=== PATIENT | male | born 1955 | race Caucasian/White ===

== ENCOUNTER 2018-04-01 08:17 | Day surgery (SDC) | payer OTHER ==
[~2018-04-01 08:17] MED LIST: PROPOFOL 200 MG/20 ML VIAL As Ordered
[2018-04-01] MEDS ORDERED: NS 1,000 ML IV (09:00)
== END 2018-04-01 10:44 | disposition home or self-care (01) ==
LOC: M OPP 08:17
DX: Z12.11 Encounter for screening for malignant neoplasm of colon (principal); D12.2 Benign neoplasm of ascending colon; D12.0 Benign neoplasm of cecum; D12.1 Benign neoplasm of appendix; D12.3 Benign neoplasm of transverse colon; D12.5 Benign neoplasm of sigmoid colon; I10 Essential (primary) hypertension; E78.5 Hyperlipidemia, unspecified; M25.569 Pain in unspecified knee; M19.90 Unspecified osteoarthritis, unspecified site; F17.210 Nicotine dependence, cigarettes, uncomplicated; Z79.899 Other long term (current) drug therapy
CPT/HCPCS: 45385

== ENCOUNTER → 2019-03-23 | Outpatient (CLI) | payer OTHER ==
[~2019-03-23] MED LIST changes: +HYDR12.55 PO; +LISI-538 PO; -PROPOFOL 200 MG/20 ML VIAL As Ordered; +SIMV10TA2 PO
--- NOTE | 2019-03-23 14:41 | REP ---
WHOLE BODY RADIONUCLIDE BONE SCAN: HISTORY: Staging for newly diagnosed prostate cancer. TECHNIQUE: 21.8 mCi technetium 99m MDP is injected and standard whole body bone scan imaging was acquired. SCINTIGRAPHIC FINDINGS: Anterior and posterior whole body images show normal distribution of skeletal tracer with uptake in bilateral kidneys and in the urinary bladder. There is no evidence to suggest skeletal metastasis. Planar images show arthritic uptake in the midfoot on the left consistent with midfoot osteoarthritis. Study is otherwise unremarkable. IMPRESSION: Osteoarthritic uptake in the left mid foot. Otherwise, negative whole-body bone scan. No evidence to suggest skeletal metastatic disease. Electronically Signed by Josemanuel Schwarz MD 03/23/2019 06:12 P
== END ==
LOC: M RAD 09:21
PROVIDERS: ATTEND Specialist
DX: C61 Malignant neoplasm of prostate (principal)

== ENCOUNTER → 2019-04-19 | Outpatient (CLI) | payer OTHER ==
[~2019-04-19] MED LIST changes: +LEUP1INJ4 SC; -SIMV10TA2 PO; +SIMV10TA21 PO
--- NOTE | 2019-04-21 08:28 | RADONC ---
RADIATION ONCOLOGY CONSULTATION NOTE DATE OF SERVICE: 04/19/2019 CHART NUMBER: [id number] DIAGNOSIS: Prostate cancer. STAGE III C, T2c, N0, M0, PSA 4.82, Cahone score 9 (4-5), grade group 5. ECOG PERFORMANCE STATUS: 0 CONSULTATION NOTE: Mr. Arce is a very pleasant 63-year-old white male with the diagnosis of a stage III C, T2c, N0, M0, poorly differentiated Diana score 9 (4-5) adenocarcinoma of the prostate, grade group 5 with a PSA level of 4.82 who is presenting to us today status post biopsy and initiation of androgen deprivation therapy for discussion of possible definitive external beam radiation therapy with IMRT / IGRT. HISTORY OF PRESENT ILLNESS: The patient was in his usual state of health but was found to have an elevated PSA which reached a level of 4.82 on 12/17/2018. On 02/18/2019, the patient underwent prostatic needle biopsy and was found to have a poorly differentiated Cahone score 9 (4-5) adenocarcinoma of the prostate which was bilateral. There were multiple sites of perineural invasion identified. The patient was initiated on androgen deprivation therapy and is now presenting to me for discussion of definitive external beam radiation therapy with IMRT / IGRT. PAST MEDICAL HISTORY: The patient's past medical history is positive for hypercholesterolemia, hypertension and arthritis. He has had the removal of colon polyps. ALLERGIES: The patient has NO KNOWN DRUG ALLERGIES. SOCIAL HISTORY: The patient had smoked one and a half packs of cigarettes per day for his entire life until just this year. This is a total of 69 pack-years over 46 years. He drinks approximately five alcoholic beverages a day but only a few days a week. FAMILY HISTORY: The patient's family history is positive for a sister with lung cancer. REVIEW OF SYSTEMS: The patient's review of systems is positive for some urinary frequency but is otherwise noncontributory. He denies nausea, vomiting, fevers, chills, night sweats, diplopia, headaches, anxiety or depression, anorexia, weight loss, visual disturbances, chest pain, urinary or bowel difficulties, bone pain, or neurological problems. PHYSICAL EXAMINATION: The patient is a well-developed, well-nourished male in no acute distress. HEENT exam is normocephalic, atraumatic. Extraocular movements are intact. There is no palpable cervical, supraclavicular, infraclavicular, axillary, or inguinal lymphadenopathy present. Lungs are clear to auscultation and percussion. Heart has a regular rate and rhythm. Abdomen is benign with no hepatosplenomegaly, masses, or tenderness. Rectal examination reveals a normal anal sphincter tone. His prostate is smooth with no evidence of nodularity. Skeletal examination reveals no tenderness to pressure or percussion of the bony skeleton. Extremities reveal no clubbing, cyanosis, or edema. Neurologic exam is grossly intact, as is the remainder of the physical examination. MEDICAL NECESSITY: IMRT/IGRT is clinically indicated for the highly conformal dose planning required. The target volume is in close proximity to critical structures, such as the rectum, bladder, small bowel, and femoral heads. The volume of interest must be covered with narrow margins to adequately protect immediately adjacent structures. The plan requires interpretation of complex testing such as CT localization. As noted above, special planning (IMRT) and localizing (IGRT) is required and essential to maximally protect sensitive normal tissue structures which cannot be accomplished using conventional 3-dimensional planning. ASSESSMENT: I had a very lengthy discussion with Mr. Arce and his regarding his treatment options. I do believe the patient is a candidate for external beam radiation therapy with IMRT and I have so informed him. I have discussed with the patient in detail the potential benefits as well as possible acute and chronic sequelae of external beam radiation therapy. We discussed logistics of treatment planning, simulation and subsequent fractionated daily radiation treatments. In addition, I discussed with the patient alternative therapies such as surgery. He reports that he is scheduled to be seen by a surgeon in two weeks' time and does not wish to make up his mind on treatment until that consultation is undertaken. I discussed the pluses and minuses of each of the two modalities surgery and radiation. In addition, I discussed my concerns with his perineural invasion and high-grade tumor which will lead to increased likelihood of microscopic lymph node metastases. I explained to him that radiation would be covering a larger area including his lymph node drainage sites and that considering the aggressive nature of his treatment, radiation may be preferable. I did discuss the possibility of surgery as a definitive option which could be followed by radiation if the margins were positive. I also explained that that would be a lower dose of radiation. Overall the patient is presently being treated with androgen deprivation therapy and therefore has some reasonable amount of time to make a final decision. I do not think it unreasonable that he has a lengthy discussion with the surgeon and may even wish for another opinion. I have therefore, at the patient's request, not set up any appointments at this time. Once the patient sees the surgeon, he will contact us if he wishes to undergo radiation. I have given the patient my personal cell phone number as well as our work number and instructed him to feel free and contact us at anytime. Should he contact his urologist, Dr. Mendez and expressed the desire to be treated, Dr. Mendez can contact us as well. Once again, we are available to this patient to answer any questions or provide him with any information whatsoever. We are also available to initiate treatment planning. The patient has been made aware as well that he will need placement of fiducial markers as part of the planning process. That will need to be done prior to initiation of treatment planning. I did go into a lengthy discussion with regards to the placement of fiducial markers as well. Thank you once again for allowing us to participate in the care of this very pleasant gentleman. If I could be of any further assistance, please feel free to contact me anytime. As always, warm regards, Ryan Garnica cc: MD Cl Hernandez MD
== END ==
LOC: M ONCR 08:49
PROVIDERS: ATTEND Radiology Radiation Oncology
DX: C61 Malignant neoplasm of prostate (principal)

== ENCOUNTER → 2020-08-10 | Outpatient (REF) | payer OTHER ==
[2020-08-10 17:14] LABS: BASO # 0.1 10^3/uL (0.0-0.2); BASO % 0.7 % (0.0-1.0); EOS # 0.4 10^3/uL (0.0-0.5); EOS % 3.3 % (0.0-3.0); HEMATOCRIT 42.6 % (42.0-52.0); HEMOGLOBIN 13.9 g/dl (13.5-17.5); LYMPH # 2.5 10^3/uL (1.5-5.0); LYMPH % 22.6 % (24.0-44.0); MEAN CORPUSCULAR HEMOGLOBIN 29.7 pg (27.0-33.0); MEAN CORPUSCULAR HGB CONC 32.6 g/dl (32.0-36.5); MONO % 8.7 % (0.0-5.0); NEUTROPHILS # 7.1 10^3/uL (1.5-8.5); NEUTROPHILS % 64.2 % (36.0-66.0); PLATELET COUNT, AUTOMATED 378 10^3/uL (150-450); RED BLOOD COUNT 4.68 10^6/uL (4.30-6.10)
[2020-08-10 17:35] LABS: ALBUMIN 4.2 GM/DL (3.2-5.2); ALT/SGPT 47 U/L (12-78); BILIRUBIN,TOTAL 0.4 MG/DL (0.2-1.0); BLOOD UREA NITROGEN 18 MG/DL (7-18); CALCIUM LEVEL 9.2 MG/DL (8.8-10.2); CARBON DIOXIDE LEVEL 28 MEQ/L (21-32); CHLORIDE LEVEL 104 MEQ/L (98-107); CREATININE FOR GFR 1.13 MG/DL (0.70-1.30); GLOMERULAR FILTRATION RATE > 60.0 (>49); GLUCOSE, FASTING 89 MG/DL (70-100); POTASSIUM SERUM 4.3 MEQ/L (3.5-5.1); RHEUMATOID FACTOR QUANT < 10.0 IU/ML (<15.0); SODIUM LEVEL 140 MEQ/L (136-145); TOTAL PROTEIN 7.7 GM/DL (6.4-8.2); URIC ACID 6.8 MG/DL (3.5-7.2)
== END ==
LOC: M SFHCRHEU 13:47
PROVIDERS: ATTEND Internal Medicine
DX: M10.9 Gout, unspecified (principal)

== ENCOUNTER → 2020-09-24 | Outpatient (REF) | payer OTHER ==
[2020-09-24 14:18] LABS: ALBUMIN 3.9 GM/DL (3.2-5.2); ALT/SGPT 36 U/L (12-78); BILIRUBIN,TOTAL 0.3 MG/DL (0.2-1.0); BLOOD UREA NITROGEN 21 MG/DL (7-18); CALCIUM LEVEL 9.8 MG/DL (8.8-10.2); CARBON DIOXIDE LEVEL 32 MEQ/L (21-32); CHLORIDE LEVEL 103 MEQ/L (98-107); CREATININE FOR GFR 1.18 MG/DL (0.70-1.30); GLOMERULAR FILTRATION RATE > 60.0 (>49); GLUCOSE, FASTING 127 MG/DL (70-100); POTASSIUM SERUM 4.2 MEQ/L (3.5-5.1); SODIUM LEVEL 140 MEQ/L (136-145); TOTAL PROTEIN 7.1 GM/DL (6.4-8.2); URIC ACID 5.8 MG/DL (3.5-7.2)
== END ==
LOC: M SFHCRHEU 08:30
PROVIDERS: ATTEND Internal Medicine
DX: M1A.29X0 Drug-induced chronic gout, multiple sites, without tophus (tophi) (principal)

== ENCOUNTER → 2020-10-05 | Outpatient (CLI) | payer OTHER ==
[~2020-10-05] MED LIST changes: +ISOVUE-370 76% 100ML VIAL As Ordered ONE; -LISI-538 PO; +LISI20TA33 PO
--- NOTE | 2020-10-05 14:31 | REP ---
INDICATION: PROSTATE CA, RISING PSA. COMPARISON: Comparison whole body bone scan 23 March 2019.. TECHNIQUE/RADIOTRACER AND DOSE: 21.8 mCi of Technetium-99m MDP was injected and standard whole-body bone scanning is acquired. FINDINGS: There is a normal distribution of skeletal tracer with uptake in bilateral kidneys and in the urinary bladder. There is no evidence to suggest skeletal metastatic disease. There is fairly intense uptake in the left midfoot articulations as on the 2019 prior study consistent with midfoot arthropathy. IMPRESSION: There is no evidence to suggest skeletal metastatic disease. Findings unchanged from March 05, 2019. Arthropathy related uptake in the left midfoot is again seen.. <Electronically signed by Lc Schwarz > 10/05/20 [id number]
--- NOTE | 2020-10-05 15:13 | REP ---
INDICATION: PROSTATE CA, RISING PSA. COMPARISON: None. TECHNIQUE: Helical scanning is acquired and 3 mm axial images re-formatted. Coronal and sagittal MPR images are generated. The CT contrast enhancement dose is 100 mL of intravenous Isovue 370. FINDINGS: Preliminary digital national accounts sales radiographs are unremarkable. Bowel gas pattern is normal. The lung bases are free of infiltrate nodule or mass. No pleural effusion or upper abdominal ascites is seen. There is mild diffuse fatty infiltration of the liver. No focal liver mass lesion is seen. Spleen is normal in size homogeneous in texture. No abnormality is noted in the gallbladder or the pancreas. There is no evidence of upper abdominal or retroperitoneal lymphadenopathy. Small and large bowel loops are normal in the upper abdomen. Pelvic CT images show no pelvic mass or adenopathy. Prostate is surgically absent. Urinary bladder is intact. Bone window settings show no bony destructive lesion. Vascular calcification is seen in a normal caliber aorta. IMPRESSION: No evidence of mass or adenopathy. No bony destructive or blastic lesion is seen. Mild diffuse fatty infiltration of the liver. No acute abnormality. <Electronically signed by Lc Schwarz > 10/05/20 [id number]
== END ==
LOC: M RAD 10:23
PROVIDERS: ATTEND Urology
DX: C61 Malignant neoplasm of prostate (principal); R97.21 Rising PSA following treatment for malignant neoplasm of prostate; K76.0 Fatty (change of) liver, not elsewhere classified
CPT/HCPCS: 74177; 78306; A9503; Q9967

== ENCOUNTER → 2020-10-25 | Outpatient (CLI) | payer OTHER ==
[~2020-10-25] MED LIST changes: +BICA50TA9 PO; -ISOVUE-370 76% 100ML VIAL As Ordered ONE
--- NOTE | 2020-10-25 10:40 | RADONC ---
Radiation Oncology Hx/FUP Radiation Oncology Hx/FUP Date of Service: Oct 25, 2020 Pt Identifier Keo Arce is a 65 year old male seen for a followup visit today at the department of radiation oncology for a history of biochemical recurrent prostate cancer [id number] [place] 4+3=7 (biopsy was 4+5=9). He is s/p RALP with Dr. Keane on 05/31/19. He has had a non-zero PSA since surgery most recently risen to 0.51 in September 2020. He is seen today to discuss salvage RT. Diagnosis/Treatment History Oncologic History Followed by Dr. Mendez for elevated PSA Given 3 month lupron in anticipation of surgery or radiation as primary treatment on 04/06/19, no additional given. PRECIOUS+ right PSA history: 10/10/20 0.51 08/01/20 0.17 05/02/20 0.09 10/26/19 0.01 07/20/19 0.01 (first post-op) 12/17/18 4.82 03/26/18 3.82 02/18/19 TRUS biopsy Diana 4+5=9 05/05 cores+ overall 05/31/19 RALP (Rubi) [id number] [place] 4+3=7 (minor component of 5 noted) Recent Imagin10/05/20 CT pelvis Negative 10/05/20 Bone scan Negative IPSS 15 HUBERT 1 Interval History Here with his . Has complete ED. Main urinary bother is weak stream and 5x nocturia. He is unsatisfied with his urinary function. He has no incontinence to speak of. He has regular BMs. Recalls he had a hormone injection from Dr. Mendez prior to surgery but this was a one-time injection. Appetite good, weight stable. Mood overall down because of the recurrence. Current Therapy Pending Stage Prostate cancer [id number] Home 4+3=7 (minor component of 5) PSA 4.82 stage IIC Social History: 60 pack year former smoker quit 2019 Drinks 12 standard drinks per week Allergies / Meds Allergies: Coded Allergies: No Known Allergies (Verified , 02/27/03) Home Meds Active Scripts Bicalutamide (Bicalutamide) 50 Mg Tablet, 1 TAB PO DAILY for 30 Days, #30 TAB Prov:JACOB SCALES MD 10/25/20 Reported Medications Leuprolide Acetate (Leuprolide Acetate) 1 Mg/0.2 Ml Kit, SC Q3M 04/19/19 Hydrochlorothiazide (Hydrochlorothiazide) 12.5 Mg Tab, 12.5 MG PO DAILY 02/18/18 Lisinopril (Lisinopril) 20 Mg Tab, 20 MG PO DAILY 02/18/18 Simvastatin (Simvastatin) 10 Mg Tab, 10 MG PO QHS 02/18/18 Review of Systems Review of Systems Constitutional: Reports: Fatigue; Denies: Chills, Fever, Weight Loss Eyes: Denies: Pain HEENT: Denies: Head Aches Skin: Denies: Rash Pulmonary: Denies: Dyspnea, Cough Cardiovascular: Denies: Chest Pain, Palpitations Gastrointestinal: Denies: Nausea, Abdominal Pain, Hematochezia Genitourinary: Reports: Frequency; Denies: Dysuria, Incontinence Hematologic: Denies: Bruising Musculoskeletal: Denies: Neck pain, Back pain Neurological: Denies: Weakness, Numbness Psych: Denies: Mood Normal Physical Examination Vital Signs Ht 72" Wt 259 lbs BMI 35 T 97.9 P 67 RR 18 BP 123/74 O2 97% Pain 0 Fatigue 5 General Exam: Positive: Alert, Cooperative; Negative: No Acute Distress Eye Exam: Positive: PERRLA, EOMI ENT EXAM: Positive: Atraumatic Neck Exam: Positive: Supple Chest Exam: Positive: Clear to auscultation Heart Exam: Positive: Rate Normal Abdomen Exam: Positive: Soft Extremity Exam: Negative: Edema Skin Exam: Positive: Nl turgor and temperature Neuro Exam: Positive: Normal Gait, Normal Speech, Cranial Nerves 3-12 NL Psych Exam: Positive: Mental status NL Diagnostic and Laboratory Diagnostic Review Radiologic images, relevant labs and pathology reports were personally reviewed and discussed with Mr. Arce. Assessment and Plan Impression Assessment Mr. Arce is a 65 year old male with a history of biochemical recurrent prostate cancer [id number] Diana 4+3=7 (biopsy was 4+5=9). He is s/p RALP with Dr. Keane on 05/31/19. He has had a non-zero PSA since surgery most recently risen to 0.51 in September 2020. He is seen today to discuss salvage RT. We reviewed his pathology which was discordant from his biopsy which suggested he very high risk disease initially. I reviewed his PSA which has a rapid doubling time. His staging studies were unsurprisingly negative. He has some urinary bother persistent but no incontinence. He is thus appropriate to begin salvage therapy immediately. I recommend 68.4 Gy in 38 fractions to the prostate bed and a lower dose to the pelvic LN on the basis of the SPPORT trial which suggested a benefit for LN inclusion in patients with post-operative PSA >0.34. I also recommend 6 months of ADT which I will facilitate here. He has previously received a 3 month eligard injection with Dr. Mendez in 2019 in anticipation of primary therapy, but this was not continued as he selected surgery. Per the [facility] salvage nomogram he has a 31% chance of durable bPFS with RT alone and a 56% chance with RT+ADT. He agreed to RT+ADT We reviewed the side effects of treatment in detail including fatigue, irritative voiding symptoms, diarrhea, and late rectal bleeding from RT, as well as fatigue, hot flashes, weight gain and joint pain from ADT. He already has complete ED post RALP. I will give him a 30 day casodex prescription to start now and schedule his lupron and simulation in the coming weeks. Performance Status ECOG 1 Plan Salvage RT + 6 month ADT as discussed above Casodex 50 mg daily for 1 month Lupron injection in next 1-2 weeks Simulation in next 1-2 weeks Mr. Arce was encouraged to call with questions or concerns in the interim period. Billing Statement Total time of [46] minutes was spent preparing for the visit [5], obtaining HPI [5], examining the patient [1], reviewing diagnostic tests [6], discussing management options [20], coordinating care [4], and writing this note [5]. JACOB SCALES MD Oct 25, 2020 10:40
== END ==
LOC: M ONCR 08:50
PROVIDERS: ATTEND General Practice
DX: C61 Malignant neoplasm of prostate (principal); Z92.3 Personal history of irradiation

== ENCOUNTER 2020-11-09 10:21 | Outpatient (RCR) | payer OTHER ==
[~2020-11-09 10:21] MED LIST changes: -LEUPROLIDE 45MG SYRINGE KIT (LUPRON DEPOT) (FOR ONCOLOGY) IM ONE
--- NOTE | 2020-11-09 11:11 | RADENCPD ---
Date/Time of Encounter Date of Encounter: Nov 09, 2020 Time of Encounter: 11:09 Encounter Naun came in today for CT simulation for his salvage RT to the prostate bed (separately documented). He also agreed to receive a 6 month lupron injection. We reviewed the side effects of lupron in detail including hot flashes, low libido, weight gain and fatigue. Informed consent was obtained. A 45 mg injection of lupron was given. He will begin RT in 1-2 weeks time. JACOB SCALES MD Nov 09, 2020 11:10
== END 2020-11-21 ==
LOC: M ONCR 10:21
PROVIDERS: ATTEND General Practice
DX: C61 Malignant neoplasm of prostate (principal)

== ENCOUNTER → 2020-11-09 | Outpatient (CLI) | payer OTHER ==
[~2020-11-09] MED LIST changes: +LEUPROLIDE 45MG SYRINGE KIT (LUPRON DEPOT) (FOR ONCOLOGY) IM ONE
== END ==
LOC: M ONCR 11:14
PROVIDERS: ATTEND General Practice
DX: C61 Malignant neoplasm of prostate (principal)

== ENCOUNTER → 2020-12-21 | Outpatient (RCR) | payer OTHER | LOC: M ONCR 11-22 09:00 | PROVIDERS: ATTEND General Practice | DX: C61 Malignant neoplasm of prostate (principal) ==

== ENCOUNTER 2021-01-14 09:04 | Outpatient (RCR) | payer OTHER | END 2021-01-21 | LOC: M ONCR 09:04 | PROVIDERS: ATTEND General Practice | DX: C61 Malignant neoplasm of prostate (principal) ==

== ENCOUNTER → 2021-04-10 | Outpatient (CLI) | payer OTHER ==
--- NOTE | 2021-04-10 12:20 | RADONC ---
Radiation Oncology Hx/FUP Radiation Oncology Hx/FUP Date of Service: Apr 10, 2021 Pt Identifier Keo Arce is a 65 year old male seen for a followup visit today at the department of radiation oncology for a history of biochemical recurrent prostate cancer [id number] [place] 4+3=7 (biopsy was 4+5=9). He is s/p RALP with Dr. Keane on 05/31/19. He has had a non-zero PSA since surgery most recently risen to 0.51 in September 2020. He completed salvage RT 68.4 Gy in 38 fractions on 01/14/21. He had concomitant 6 month Lupron given 11/09/20. Diagnosis/Treatment History Oncologic History Followed by Dr. Mendez for elevated PSA Given 3 month lupron in anticipation of surgery or radiation as primary treatment on 04/06/19, no additional given. PRECIOUS+ right PSA history: 04/04/21 <0.01 (post-RT) 10/10/20 0.51 08/01/20 0.17 05/02/20 0.09 10/26/19 0.01 07/20/19 0.01 (first post-op) 12/17/18 4.82 03/26/18 3.82 02/18/19 TRUS biopsy [place] 4+5=9 05/05 cores+ overall 05/31/19 RALP (Rubi) [id number] [place] 4+3=7 (minor component of 5 noted) 10/05/20 CT pelvis Negative 10/05/20 Bone scan Negative Interval History Naun reports his energy levels have improved since completing RT. He has no residual urinary or bowel complaints. No BRBPR or diarrhea. He has good stream, no excess urinary frequency and his baseline stress incontinence which has not changed since prior to RT. Current Therapy Surveillance Stage Prostate cancer [id number] Diana 4+3=7 (minor component of 5) PSA 4.82 stage IIC Social History: 60 pack year former smoker quit 2019 Drinks 12 standard drinks per week Allergies / Meds Allergies: Coded Allergies: No Known Allergies (Verified , 02/27/03) Home Meds Active Scripts Bicalutamide (Bicalutamide) 50 Mg Tablet, 1 TAB PO DAILY for 30 Days, #30 TAB Prov:JACOB SCALES MD 10/25/20 Reported Medications Leuprolide Acetate (Leuprolide Acetate) 1 Mg/0.2 Ml Kit, SC Q3M 04/19/19 Hydrochlorothiazide (Hydrochlorothiazide) 12.5 Mg Tab, 12.5 MG PO DAILY 02/18/18 Lisinopril (Lisinopril) 20 Mg Tab, 20 MG PO DAILY 02/18/18 Simvastatin (Simvastatin) 10 Mg Tab, 10 MG PO QHS 02/18/18 Review of Systems Review of Systems Constitutional: Denies: Chills, Fever, Weight Loss Eyes: Denies: Pain HEENT: Denies: Head Aches Pulmonary: Denies: Dyspnea, Cough Cardiovascular: Denies: Chest Pain Gastrointestinal: Denies: Abdominal Pain, Hematochezia Genitourinary: Reports: Incontinence; Denies: Frequency, Hematuria Hematologic: Denies: Bruising Musculoskeletal: Denies: Neck pain, Shoulder pain, Back pain Neurological: Denies: Weakness, Numbness Psych: Reports: Mood Normal Physical Examination Vital Signs Wt 255 lbs T 96.3 P 71 RR 18 BP 116/71 O2 95% Pain 0 Fatigue 0 General Exam: Alert, Cooperative, No Acute Distress Eye Exam: PERRLA, EOMI ENT EXAM: Atraumatic Neck Exam: Supple Chest Exam: Clear to auscultation Heart Exam: Rate Normal Abdomen Exam: Soft; Negative: Tenderness Extremity Exam: Negative: Edema Skin Exam: Nl turgor and temperature Neuro Exam: Normal Gait, Normal Speech, Cranial Nerves 3-12 NL Psych Exam: Mental status NL Diagnostic and Laboratory Diagnostic Review Radiologic images, relevant labs and pathology reports were personally reviewed and discussed with Mr. Arce. Assessment and Plan Impression Assessment Mr. Arce is a 65 year old male with a history of biochemical recurrent prostate cancer [id number] [place] 4+3=7 (biopsy was 4+5=9). He is s/p RALP with Dr. Keane on 05/31/19. He has had a non-zero PSA since surgery most recently risen to 0.51 in September 2020. He completed salvage RT 68.4 Gy in 38 fractions on 01/14/21. He had concomitant 6 month Lupron given 11/09/20. He is doing well overall, no excess urinary or GI bother since RT. We discussed that his PSA is still appropriately suppressed, and that his testosterone stands to normalize in the coming months, the expectation is that PSA will remain undetectable. Given his significant smoking history he would be eligible for a screening CT chest per USPSTF guidelines. We can discuss this at next visit. Performance Status ECOG 0 Plan 6 months with PSA/Testosterone Consider screening CT chest at next visit given smoking history Mr. Arce was encouraged to call with questions or concerns in the interim period. Billing Statement Total time of [24] minutes was spent preparing for the visit [1], obtaining HPI [4], examining the patient [2], reviewing diagnostic tests [2], discussing management options [6], coordinating care [2], and writing this note [7]. JACOB SCALES MD Apr 10, 2021 12:19
== END ==
LOC: M ONCR 10:23
PROVIDERS: ATTEND General Practice
DX: C61 Malignant neoplasm of prostate (principal); Z79.899 Other long term (current) drug therapy; Z87.891 Personal history of nicotine dependence; Z92.3 Personal history of irradiation

== ENCOUNTER → 2021-07-08 | Outpatient (CLI) | payer OTHER ==
[~2021-07-08] MED LIST changes: +ALLO300T2 PO; +LOSA50TA88 PO; +SIMV20TA22 PO; +SPIR1TAB34 PO; +ZOLO100T PO
== END ==
LOC: M LABSMTC 10:02
PROVIDERS: ATTEND Anesthesiology
DX: Z01.812 Encounter for preprocedural laboratory examination (principal); Z20.822 Contact with and (suspected) exposure to COVID-19

== ENCOUNTER 2021-07-12 06:49 | Day surgery (SDC) | payer OTHER ==
[~2021-07-12] VITALS: Ht 182.9 cm; Wt 115.1 kg
[~2021-07-12 06:49] MED LIST changes: +NS 1,000 ML IV ONE
--- OUTSIDE RECORDS SUMMARY | 2021-07-12 06:53 | CCD ---
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 317474782392781 Problem Acute gout of left foot, unspecified cause M10.9 Active confirmed [id number] ALLERGIES No Known Allergies ENCOUNTERS from 1955 to 2021-05-31 Encounter Location Date Provider Diagnosis [facility] Rheumatology [address] [place] [address] [place] [address] May, Autumn Mendez IMMUNIZATIONS No Information SOCIAL HISTORY Tobacco Use: Social History Observation Description Date Details (start date - stop date) Former Smoker Sex Assigned At : Social History Observation Description Sex Assigned At Unknown Alcohol Screening: Question Answer Notes Did you have a drink containing alcohol in the past year? Ye s Points 1 Interpretation Negative How often did you have six or more drinks on one occas ion in the past year? Never (0 points) How many drinks did you have on a typica l day when you were drinking in the past year? 1 or 2 (0 points) How often did you have a drink containing alcohol in t he past year? Monthly or less (1 point) Tobacco Use: Question Answer Notes Are you a: former smoker How long has it been since you last smoked? 1-5 years REASON FOR REFERRAL No Information VITAL SIGNS No information MEDICATIONS Medication SIG (Take, Route, Frequency, Duration) Notes Start Da te End Date Status Losartan Potassium 50 MG 1 tablet Oral Once a day Active predniSONE 5 MG 1 tablet Orally Once a day f or 2 weeks then one pill every other day for 2 weeks then as directed if needed for flare for 30 day(s) 01/31/21: has not taken in a while Sep, Active Simvastatin 10 MG 1 tablet in the evening Oral Daily Active Hydrochlorothiazide 12.5 MG 1 tablet in the morning Oral Daily Active Sertraline HCl 100 MG 1 tablet Oral Once a day Active Colchicine 0.6 MG 1 tablet Oral Daily Not-Taking Allopurinol 300 MG 1 tablet Orally Once a day for 30 days Jul, Active Allopurinol 300 MG 1 tablet Orally Once a day for 30 day(s) Not-Taking Ibuprofen 600 MG 1 tablet with food or milk as needed Ora lly Three times a day Not-Taking Lisinopril 20 MG 1 tablet Oral Once a day Not-Taking predniSONE 10 MG 2 tablet Orally bid for 30 day(s) Jul, Not-Taking PROCEDURES No Information RESULTS No Results REASON FOR VISIT APPT R/S FYI MEDICAL (GENERAL) HISTORY Type Description Date Medical History Arthritis Medical History prostate cancer Medical History high blood pressure Medical History high cholesterol Surgical History prostatectomy 05/2019 Surgical History left foot surgery 20 years ago Goals Section No Information Health Concerns No Information MEDICAL EQUIPMENT No Information MENTAL STATUS No Information FUNCTIONAL STATUS No Information ASSESSMENTS No Information PLAN OF TREATMENT Next Appt Details Provider Name:Autumn Mendez, 08:30:00 AM, [address] [place] [address], , [place], [place], [facility], Insurance Providers Payer Name Payer Address Payer Phone Insured Name Patient Relati onship to Insured Coverage Start Date Coverage End Date [facility] (NON MEDICAID MANAGED CARE) CORPORATE CLAIMS DEPT [address] [facility] [id number] GIOVANNI ARCE self
--- OUTSIDE RECORDS SUMMARY | 2021-07-12 06:53 | CCD | Continuity of Care Document ---
Author Author Keo GILBERT MD Organization Unknown Address [address] [place] [id number] Phone [phone] Care Team Providers Care Dietary Services Director Name Role Phone Stephany Forrest MD AUTM [phone] Problems Active Problems Provider Date Dislocation Foot Tarsometatarsal (Joint) Open Onset: 06/14/1999 Pure hypercholesterolemia Perla Gilbert MD Onset: 05/26 Essential hypertension Perla Gilbert MD Onset: 020 Social History Type Date Description Comments Sex Unknown ETOH Use Occasionally consumes alcohol Tobacco Use Start: Unknown End: Unknown Patient is a former smoker Allergies and adverse reactions Description No Known Drug Allergies Medications Active Medications SIG Qnty Indications Ordering Provide r Date Ibuprofen 600mg Tablets 1 tab by mouth three times a day 60tabs M25.572 Perla Gilbert MD 020 Hydrochlorothiazide 12.5mg Tablets Unknown Lisinopril 20mg Tablets Unknown Simvastatin 10mg Tablets Unknown Immunizations Description No Information Available Vital Signs Date Vital Result Comment 06/22/2020 8:33am Body Temperature 97.1 F Height 72 inches 6'0" Weight 260.00 lb BMI (Body Mass Index) 35.3 kg/m2 Results Description No Information Available Procedures Description No Information Available Medical Devices Description No Information Available Encounters Description No Information Available Assessments Description No Information Available Plan of Treatment 07/05/2020 - Perla Gilbert MD* M25.572 Pain in left ankle and joints of left foot* Follow up:* in 6 weeks with [facility] for left foot recheck with repeat xrays of left foot only if there is pain please. * M25.475 Effusion, left foot Functional Status Description No Information Available Mental Status Description No Information Available Referrals Description No Information Available
--- OUTSIDE RECORDS SUMMARY | 2021-07-12 06:56 | CCD ---
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 Role Phone Lori Nix MD Unavailable Unavailable Ole, Lori Hammond MD Unavailable Unavailable Ole, Lori Hammond MD Unavailable Unavailable Ole, Lori Hammond MD Unavailable Unavailable Ole, Lori Hammond MD Unavailable Unavailable Ole, Lori Hammond MD Unavailable Unavailable Ole, Lori Hammond MD Unavailable Unavailable Ole, Lori Hammond MD Unavailable Unavailable Ole, Lori Hammond MD Unavailable Unavailable Ole, Lori Hammond MD Unavailable Unavailable Ole, Lori Hammond MD Unavailable Unavailable Ole, Lori Hammond MD Unavailable Unavailable Ole, Lori Hammond MD Unavailable Unavailable Ole, Lori Hammond MD Unavailable Unavailable Ole, Lori Hammond MD Unavailable Unavailable Ole, Lori Hammond MD Unavailable Unavailable Ole, Lori Hammond MD Unavailable Unavailable Ole, Lori Hammond MD Unavailable Unavailable Ole, Lori Hammond MD Unavailable Unavailable Ole, Lori Hammond MD Unavailable Unavailable Ole, Lori Hammond MD Unavailable Unavailable Ole, Lori Hammond MD Unavailable Unavailable Ole, Lori Hammond MD Unavailable Unavailable Ole, Lori Hammond MD Unavailable Unavailable Ole, Lori Hammond MD Unavailable Unavailable Ole, Lori Hammond MD Unavailable Unavailable Ole, Lori Hammond MD Unavailable Unavailable Ole, Lori Hammond MD Unavailable Unavailable Ole, Lori Hammond MD Unavailable Unavailable Ole, Lori Hammond MD Unavailable Unavailable Ole, Lori Hammond MD Unavailable Unavailable Loe, Lori Hammond MD Unavailable Unavailable Ole, Lori Hammond MD Unavailable Unavailable Ole, Lori Hammond MD Unavailable Unavailable Ole, Lori Hammond MD Unavailable Unavailable Ole, Lori Hammond MD Unavailable Unavailable Ole, Lori Hammond MD Unavailable Unavailable Ole, Lori Hammond MD Unavailable Unavailable Ole, Lori Hammond MD Unavailable Unavailable Ole, Lori Hammond MD Unavailable Unavailable Ole, Lori Hammond MD Unavailable Unavailable Ole, Lori Hammond MD Unavailable Unavailable Ole, Lori Hammond MD Unavailable Unavailable Ole, Lori Hammond MD Unavailable Unavailable Ole, Lori Hammond MD Unavailable Unavailable Ole, Lori Hammond MD Unavailable Unavailable Ole, Lori Hammond MD Unavailable Unavailable Ole, Lori Hammond MD Unavailable Unavailable Ole, Lori Hammond MD Unavailable Unavailable Ole, Lori Hammond MD Unavailable Unavailable Ole, Lori Hammond MD Unavailable Unavailable Ole, Lori Hammond MD Unavailable Unavailable Ole, Lori Hammond MD Unavailable Unavailable Ole, Lori Hammond MD Unavailable Unavailable Ole, Lori Hammond MD Unavailable Unavailable Ole, Lori Hammond MD Unavailable Unavailable Ole, Lori Hammond MD Unavailable Unavailable Ole, Lori Hammond MD Unavailable Unavailable Ole, Lori Hammond MD Unavailable Unavailable Ole, Lori Hammond MD Unavailable Unavailable Ole, Lori Hammond MD Unavailable Unavailable Ole, Lori Hammond MD Unavailable Unavailable Ole, Lori Hammond MD Unavailable Unavailable Ole, Lori Hammond MD Unavailable Unavailable Ole, Lori Hammond MD Unavailable Unavailable Ole, Lori Hammond MD Unavailable Unavailable Ole, Lori Hammond MD Unavailable Unavailable Ole, Lori Hammond MD Unavailable Unavailable Ole, Lori Hammond MD Unavailable Unavailable Ole, Lori Hammond MD Unavailable Unavailable Ole, Lori Hammond MD Unavailable Unavailable Ole, Lori Hammond MD Unavailable Unavailable Ole, Lori Hammond MD Unavailable Unavailable Ole, Lori Hammond MD Unavailable Unavailable Ole, Lori Hammond MD Unavailable Unavailable Ole, Lori Hammond MD Unavailable Unavailable Ole, Lori Hammond MD Unavailable Unavailable Homero Mcelroy MD Unavailable Unavailable Homero Mcelroy MD Unavailable Unavailable Homero Mcelroy MD Unavailable Unavailable Homero Mcelroy MD Unavailable Unavailable LilibethHomero MD Unavailable Unavailable LilibethHomero MD Unavailable Unavailable LilibethHomero MD Unavailable Unavailable Lilibeth, Homero FERRER Unavailable Unavailable Lilibeth, Homero FERRER Unavailable Unavailable Lilibeth, Homero FERRER Unavailable Unavailable Lilibeth, Homero FERRER Unavailable Unavailable Lilibeth, Homero FERRER Unavailable Unavailable Lilibeth, Homero FERRER Unavailable Unavailable LilibethHomero MD Unavailable Unavailable LilibethHomero MD Unavailable Unavailable LilibethHomero MD Unavailable Unavailable LilibethHomero MD Unavailable Unavailable LilibethHomero MD Unavailable Unavailable Lilibeth, Homero FERRER Unavailable Unavailable LilibethHomero MD Unavailable Unavailable LilibethHomero MD Unavailable Unavailable LilibethHomero MD Unavailable Unavailable LilibethHomero MD Unavailable Unavailable LilibethHomero MD Unavailable Unavailable LilibethHomero MD Unavailable Unavailable LilibethHomero MD Unavailable Unavailable LilibethHomero MD Unavailable Unavailable Lilibeth, Homero FERRER Unavailable Unavailable LilibethHomero MD Unavailable Unavailable LilibethHomero MD Unavailable Unavailable LilibethHomero MD Unavailable Unavailable LilibethHomero stewart MD Unavailable Unavailable LilibethHomero stewart MD Unavailable Unavailable LilibethHomero stewart MD Unavailable Unavailable LilibethHomero stewart MD Unavailable Unavailable LilibethHomero MD Unavailable Unavailable LilibethHomero MD Unavailable Unavailable LilibethHomero MD Unavailable Unavailable LilibethHomero MD Unavailable Unavailable LilibethHomero MD Unavailable Unavailable LilibethHomero MD Unavailable Unavailable LilibethHomero MD Unavailable Unavailable LilibethHomero MD Unavailable Unavailable LilibethHomero MD Unavailable Unavailable LilibethHomero MD Unavailable Unavailable LilibethHomero MD Unavailable Unavailable LilibethHomero MD Unavailable Unavailable LilibethHomero MD Unavailable Unavailable LilibethHomero stewart MD Unavailable Unavailable Homero Mcelroy MD Unavailable Unavailable LilibethHomero stewart MD Unavailable Unavailable LilibethHomero stewart MD Unavailable Unavailable LilibethHomero stewart MD Unavailable Unavailable LilibethHomero stewart MD Unavailable Unavailable LilibethHomero MD Unavailable Unavailable LilibethHomero MD Unavailable Unavailable JASON ABEBE Unavailable Unavailable Adonis Keane MD Unavailable Unavailable Adonis Keane MD Unavailable Unavailable Adonis Keane MD Unavailable Unavailable Adonis Keane MD Unavailable Unavailable Adonis Keane MD Unavailable Unavailable Adonis Keane MD Unavailable Unavailable Adonis Keane MD Unavailable Unavailable Adonis Keane MD Unavailable Unavailable Adonis Keane MD Unavailable Unavailable Adonis Keane MD Unavailable Unavailable Adonis Keane MD Unavailable Unavailable Adonis Keane MD Unavailable Unavailable Adonis Keane MD Unavailable Unavailable Adonis Keane MD Unavailable Unavailable Adonis Keane MD Unavailable Unavailable Adonis Keane MD Unavailable Unavailable Adonis Keane MD Unavailable Unavailable Adonis Keane MD Unavailable Unavailable Adonis Keane MD Unavailable Unavailable Adonis Keane MD Unavailable Unavailable Adonis Keane MD Unavailable Unavailable Adonis Keane MD Unavailable Unavailable Adonis Keane MD Unavailable Unavailable Adonis Keane MD Unavailable Unavailable Adonis Keane MD Unavailable Unavailable Adonis Keane MD Unavailable Unavailable Adonis Keane MD Unavailable Unavailable Adonis eKane MD Unavailable Unavailable Adonis Keane MD Unavailable Unavailable Adonis Keane MD Unavailable Unavailable Adonis Keane MD Unavailable Unavailable Adonis Keane MD Unavailable Unavailable Adonis Keane MD Unavailable Unavailable Adonis Keane MD Unavailable Unavailable Adonis Keane MD Unavailable Unavailable Adonis Keane MD Unavailable Unavailable Adonis Keane MD Unavailable Unavailable Adonis Keane MD Unavailable Unavailable Adonis Keane MD Unavailable Unavailable Adonis Keane MD Unavailable Unavailable Adonis Keane MD Unavailable Unavailable Adonis Keane MD Unavailable Unavailable Adonis Keane MD Unavailable Unavailable Adonis Keane MD Unavailable Unavailable Adonis Keane MD Unavailable Unavailable Adonis Keane MD Unavailable Unavailable Adonis Keane MD Unavailable Unavailable Adonis Keane MD Unavailable Unavailable Adonis Keane MD Unavailable Unavailable Adonis Keane MD Unavailable Unavailable Adonis Keane MD Unavailable Unavailable Adonis Keane MD Unavailable Unavailable Adonis Keane MD Unavailable Unavailable Adonis Keane MD Unavailable Unavailable Adonis Keane MD Unavailable Unavailable Adonis Keane MD Unavailable Unavailable Adonis Keane MD Unavailable Unavailable Ricky BENNETT MD Unavailable Unavailable Ricky BENNETT MD Unavailable Unavailable Ricky BENNETT MD Unavailable Unavailable Ricky BENNETT MD Unavailable Unavailable Ricky BENNETT MD Unavailable Unavailable Ricky BENNETT MD Unavailable Unavailable Ricky BENNETT MD Unavailable Unavailable Ricky BENNETT MD Unavailable Unavailable Ricky BENNETT MD Unavailable Unavailable JACOB SCALES MD Unavailable Unavailable JACOB SCALES MD Unavailable Unavailable JACOB SCALES MD Unavailable Unavailable JACOB SCALES MD Unavailable Unavailable JACOB SCALES MD Unavailable Unavailable JACOB SCALES MD Unavailable Unavailable JACOB SCALES MD Unavailable Unavailable JACOB SCALES MD Unavailable Unavailable JACOB SCALES MD Unavailable Unavailable JACOB SCALES MD Unavailable Unavailable JACOB SCALES MD Unavailable Unavailable JACOB SCALES MD Unavailable Unavailable JACOB SCALES MD Unavailable Unavailable JACOB SCALES MD Unavailable Unavailable JACOB SCALES MD Unavailable Unavailable JACOB SCALES MD Unavailable Unavailable Adonis Keane MD Unavailable Unavailable Adonis Keane MD Unavailable Unavailable Adonis Keane MD Unavailable Unavailable Adonis Keane MD Unavailable Unavailable Adonis Keane MD Unavailable Unavailable Adonis Keane MD Unavailable Unavailable Adonis Keane MD Unavailable Unavailable Adonis Keane MD Unavailable Unavailable Adonis Keane MD Unavailable Unavailable Adonis Keane MD Unavailable Unavailable Adonis Keane MD Unavailable Unavailable Adonis Keane MD Unavailable Unavailable Adonis Keane MD Unavailable Unavailable Adonis Keane MD Unavailable Unavailable Adonis Keane MD Unavailable Unavailable Adonis Keane MD Unavailable Unavailable Adonis Keane MD Unavailable Unavailable Adonis eKane MD Unavailable Unavailable Adonis Keane MD Unavailable Unavailable Adonis Keane MD Unavailable Unavailable Adonis Keane MD Unavailable Unavailable Adonis Keane MD Unavailable Unavailable Adonis Keane MD Unavailable Unavailable Adonis Keane MD Unavailable Unavailable Adonis Keane MD Unavailable Unavailable Adonis Keane MD Unavailable Unavailable Adonis Keane MD Unavailable Unavailable Adonis Keane MD Unavailable Unavailable Adonis Keane MD Unavailable Unavailable Adonis Keane MD Unavailable Unavailable Adonis Keane MD Unavailable Unavailable Adonis Keane MD Unavailable Unavailable Adonis Keane MD Unavailable Unavailable Adonis Keane MD Unavailable Unavailable Adonis Keane MD Unavailable Unavailable Adonis Keane MD Unavailable Unavailable Adonis Keane MD Unavailable Unavailable Adonis Keane MD Unavailable Unavailable Adonis Keane MD Unavailable Unavailable Adonis Keane MD Unavailable Unavailable Adonis Keane MD Unavailable Unavailable Adonis Keane MD Unavailable Unavailable Adonis Keane MD Unavailable Unavailable Adonis Keane MD Unavailable Unavailable Adonis Keane MD Unavailable Unavailable Adonis Keane MD Unavailable Unavailable Adonis Keane MD Unavailable Unavailable Adonis Keane MD Unavailable Unavailable Adonis Keane MD Unavailable Unavailable Adonis Keane MD Unavailable Unavailable Adonis Keane MD Unavailable Unavailable Adonis Keane MD Unavailable Unavailable Adonis Keane MD Unavailable Unavailable Adonis Keane MD Unavailable Unavailable Adonis Keane MD Unavailable Unavailable Adonis Keane MD Unavailable Unavailable Adonis Keane MD Unavailable Unavailable DAVID PAGAN MD Unavailable Unavailable DAVID PGAAN MD Unavailable Unavailable DAVID PAGAN MD Unavailable Unavailable DAVID PAGAN MD Unavailable Unavailable DAVID PAGAN MD Unavailable Unavailable DAVID PAGAN MD Unavailable Unavailable DAVID PAGAN MD Unavailable Unavailable DAVID PAGAN MD Unavailable Unavailable DAVID PAGAN MD Unavailable Unavailable DAVID PAGAN MD Unavailable Unavailable DAVID PAGAN MD Unavailable Unavailable DAVID PAGAN MD Unavailable Unavailable DAVID PAGAN MD Unavailable Unavailable DAVID PAGAN MD Unavailable Unavailable DAVID PAGAN MD Unavailable Unavailable DAVID PAGAN MD Unavailable Unavailable DAVID PAGAN MD Unavailable Unavailable DAVID PAGAN MD Unavailable Unavailable DAVID PAGAN MD Unavailable Unavailable PAGANDAVID WINTER MD Unavailable Unavailable PAGANDAVID WINTER MD Unavailable Unavailable PAGANDAVID WINTER MD Unavailable Unavailable PAGANDAVID WINTER MD Unavailable Unavailable DAVID PAGAN MD Unavailable Unavailable DAVID PAGAN MD Unavailable Unavailable PAGANDAVID MD Unavailable Unavailable PAGANDAVID MD Unavailable Unavailable DAVID PAGAN MD Unavailable Unavailable DAVID PAGAN MD Unavailable Unavailable DAVID PAGAN MD Unavailable Unavailable DAVID PAGAN MD Unavailable Unavailable Ole, Lori Hammond MD Unavailable Unavailable Ole, Lori Hammond MD Unavailable Unavailable Ole, Lori Hammond MD Unavailable Unavailable Ole, Lori Hammond MD Unavailable Unavailable Ole, Lori Hammond MD Unavailable Unavailable Ole, Lori Hammond MD Unavailable Unavailable Ole, Lori Hammond MD Unavailable Unavailable Ole, Lori Hammond MD Unavailable Unavailable Ole, Lori Hammond MD Unavailable Unavailable Ole, Lori Hammond MD Unavailable Unavailable Ole, Lori Hammond MD Unavailable Unavailable Ole, Lori Hammond MD Unavailable Unavailable Ole, Lori Hammond MD Unavailable Unavailable Ole, Lori Hammond MD Unavailable Unavailable Ole, Lori Hammond MD Unavailable Unavailable Ole, Lori Hammond MD Unavailable Unavailable Ole, Lori Hammond MD Unavailable Unavailable Ole, Lori Hammond MD Unavailable Unavailable Ole, Lori Hammond MD Unavailable Unavailable Ole, Lori Hammond MD Unavailable Unavailable Ole, Lori Hammond MD Unavailable Unavailable Ole, Lori Hammond MD Unavailable Unavailable Ole, Lori Hammond MD Unavailable Unavailable Ole, Lori Hammond MD Unavailable Unavailable Ole, Lori Hammond MD Unavailable Unavailable Ole, Lori Hammond MD Unavailable Unavailable Ole, Lori Hammond MD Unavailable Unavailable Ole, Lori Hammond MD Unavailable Unavailable Ole, Lori Hammond MD Unavailable Unavailable Ole, Lori Hammond MD Unavailable Unavailable Ole, Lori Hammond MD Unavailable Unavailable Ole, Lori Hammond MD Unavailable Unavailable Ole, Lori Hammond MD Unavailable Unavailable Ole, Lori Hammond MD Unavailable Unavailable Ole, Lori Hammond MD Unavailable Unavailable Ole, Lori Hammond MD Unavailable Unavailable Ole, Lori Hammond MD Unavailable Unavailable Ole, Lori Hammond MD Unavailable Unavailable Ole, Lori Hammond MD Unavailable Unavailable Ole, Lori Hammond MD Unavailable Unavailable Ole, Lori Hammond MD Unavailable Unavailable Ole, Lroi Hammond MD Unavailable Unavailable Ole, Lori Hammond MD Unavailable Unavailable Ole, Lori Hammond MD Unavailable Unavailable Ole, Lori Hammond MD Unavailable Unavailable Ole, Lori Hammond MD Unavailable Unavailable Ole, Lori Hammond MD Unavailable Unavailable Ole, Lori Hammond MD Unavailable Unavailable Ole, Lori Hammond MD Unavailable Unavailable Ole, Lori Hammond MD Unavailable Unavailable Ole, Lori Hammond MD Unavailable Unavailable Ole, Lori Hammond MD Unavailable Unavailable Ole, Lori Hammond MD Unavailable Unavailable Ole, Lori Hammond MD Unavailable Unavailable Ole, Lori Hammond MD Unavailable Unavailable Ole, Lori Hammond MD Unavailable Unavailable Ole, Lori Hammond MD Unavailable Unavailable Ole, Lori Hammond MD Unavailable Unavailable Ole, Lori Hammond MD Unavailable Unavailable Ole, Lori Hammond MD Unavailable Unavailable Ole, Lori Hammond MD Unavailable Unavailable Ole, Lori Hammond MD Unavailable Unavailable Ole, Lori Hammond MD Unavailable Unavailable Ole, Lori Hammond MD Unavailable Unavailable Ole, Lori Hammond MD Unavailable Unavailable Ole, Lori Hammond MD Unavailable Unavailable Ole, Lori Hammond MD Unavailable Unavailable Ole, Lori Hammond MD Unavailable Unavailable Ole, Lori Hammond MD Unavailable Unavailable Ole, Lori Hammond MD Unavailable Unavailable Ole, Lori Hammond MD Unavailable Unavailable Ole, Lori Hammond MD Unavailable Unavailable Ole, Lori Hammond MD Unavailable Unavailable Ole, Lori Hammond MD Unavailable Unavailable Ole, Lori Hammond MD Unavailable Unavailable Ole, Lori Hammond MD Unavailable Unavailable Ole, Lori Hammond MD Unavailable Unavailable DAVID PAGAN MD Unavailable Unavailable DAVID PAGAN MD Unavailable Unavailable DAVID PAGAN MD Unavailable Unavailable DAVID PAGAN MD Unavailable Unavailable DAVID PAGAN MD Unavailable Unavailable DAVID PAGAN MD Unavailable Unavailable DAVID PAGAN MD Unavailable Unavailable DAVID PAGAN MD Unavailable Unavailable DAVID PAGAN MD Unavailable Unavailable DAVID PAGAN MD Unavailable Unavailable DAVID PAGAN MD Unavailable Unavailable PAGAN, DAVID MD Unavailable Unavailable PAGAN, DAVID MD Unavailable Unavailable PAGAN, DAVID MD Unavailable Unavailable PAGAN, DAVID MD Unavailable Unavailable PAGAN, DAVID MD Unavailable Unavailable PAGAN, DAVID MD Unavailable Unavailable PAGAN, DAVID MD Unavailable Unavailable PAGAN, DAVID MD Unavailable Unavailable PAGAN, DAVID MD Unavailable Unavailable PAGAN, DAVID MD Unavailable Unavailable PAGAN, DAVID MD Unavailable Unavailable PAGAN, DAVID MD Unavailable Unavailable PAGAN, DAVID MD Unavailable Unavailable PAGAN, DAVID MD Unavailable Unavailable PAGAN, DAVID MD Unavailable Unavailable PAGAN, ADVID MD Unavailable Unavailable PAGAN, DAVID MD Unavailable Unavailable PAGAN, DAVID MD Unavailable Unavailable PAGAN, DAVID MD Unavailable Unavailable PAGAN, DAVID MD Unavailable Unavailable Re-disclosure Warning The records that you are about to access may contain information from federally-assisted alcohol or drug abuse programs. If such information is present, then the following federally mandated warning applies: This information has been disclosed to you from records protected by federal confidentiality rules (42 CFR part 2). The federal rules prohibit you from making any further disclosure of this information unless further disclosure is expressly permitted by the written consent of the person to whom it pertains or as otherwise permitted by 42 CFR part 2. A general authorization for the release of medical or other information is NOT sufficient for this purpose. The Federal rules restrict any use of the information to criminally investigate or prosecute any alcohol or drug abuse patient.The records that you are about to access may contain highly sensitive health information, the redisclosure of which is protected by Article 27-F of the [facility] Public Health law. If you continue you may have access to information: Regarding HIV / AIDS; Provided by facilities licensed or operated by the [facility] Office of Mental Health; or Provided by the [facility] Office for People With Developmental Disabilities. If such information is present, then the following [facility] mandated warning applies: This information has been disclosed to you from confidential records which are protected by state law. State law prohibits you from making any further disclosure of this information without the specific written consent of the person to whom it pertains, or as otherwise permitted by law. Any unauthorized further disclosure in violation of state law may result in a fine or residential sentence or both. A general authorization for the release of medical or other information is NOT sufficient authorization for further disc losure. Allergies and Adverse Reactions Type Description Substance Reaction Status Data Source(s ) No Known Drug Allergies No Known Drug Allergies [facility] Propensity to adverse reactions NO KNOWN ALLERGIES NO KNOWN ALLERGIES [facility] Family History Family Member Name Family Member Gender Family Member Status Date o f Status Description Data Source(s) Unknown Condition [facility] Unknown Condition [facility] Unknown Male Problem [facility] ([facility]) Unknown Unknown Problem [facility] ([facility], ) Mother; Question perforated bowel (unkno wn cause) Encounters Encounter Providers Location Date Indications Data Source(s ) Unknown [id number] [facility] [address] 05/31/2021 12:00:00 AM EDT eCW1 ([facility]) Outpatient Attender: JACOB SCALES MDConsultant: Ephraim suresh MD 04/04/2021 06:51:00 AM EDT - 04/04/2021 07:51:00 AM EDT [facility] <td ID="encounterTypeDescriptionID0">TOY UA PHYSICAL EXAM</td><td>Ephraim Nix MD</td><td>Family Medicine [facility]</td><td>01/08/2021</td><td>10:02AM</td><td>11/07/2020 11:59PM</td><td><content ID="encounterDiagnosisID0-0">Depression</content>, <content ID="encounterDiagnosisID0-1">Depression with Anxiety</content>, <content ID="encounterDiagnosisID0-2">Anemia Normochromic, Normocytic</content>, <content ID="encounterDiagnosisID0-3">Hypogonadism</content>, <content ID="encounterDiagnosisID0-4">Fatigue</content>, <content ID="encounterDiagnosisID0-5">Routine History and Physical</content>, <content ID="encounterDiagnosisID0-6">Routine History & Physical 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) Obesity Routine History & Physical Senior Citize n with Abnormal Findings Routine History and Physical Fatigue Hypogonadism Depression with Anxiety Depression Anemia Normochromic, Normocytic Hyperlipidemia Outpatient Attender: JASON ABEBEConsultant: Homero contreras MD 12/31/2020 06:57:00 AM EDT - 12/31/2020 07:57:00 AM EDT [facility] Outpatient Attender: Ephraim Nix MDConsultant: Homero jarrell MD 12/31/2020 06:55:00 AM EDT - 12/31/2020 07:55:00 AM EDT [facility] <td ID="encounterTypeDescriptionID1">RX UPDATE</td><td>Ephraim Nix MD</td><td></td><td>01/02/2021</td><td>11/07/2020 9:10AM</td><td>11/07/2020 11:59PM</td><td></td>Outpatient Attender: Ephraim Nix MD 0 11/07/2020 09:10:00 AM EDT - 11/07/2020 11:59:00 PM EDT [facility]) Outpatient<td ID="encounterTypeDescripti onID2">EXTENDED VISIT</td><td>Ephraim Nix MD</td><td>[facility]</td><td>11/07/2020</td><td>8:09AM</td><td>8:36AM</td><td><content ID="encounterDiagnosisID2-0">Prostate Cancer</content>, <content ID="encounterDiagnosisID2-1">Obesity</content>, <content ID="encounterDiagnosisID2-2">Depression with Anxiety</content>, <content ID="encounterDiagnosisID2-3">Arthralgia</content></td> Attender: Ephraim Nix MD [facility], 11/07/2020 08:09:00 AM EDT - 11/07/2020 08:36:00 AM EDT Depression with AnxietyObesityDepression with AnxietyObesityProstate CancerProstate CancerArthralgiaArthralgia [place] ([facility]) Depression with Anxiety Obesity Depression with Anxiety Obesity Prostate Cancer Prostate Cancer Arthralgia Arthralgia <td ID="encounterTypeDescriptionID3">STA NDARD OV</td><td>Ephraim Nix MD</td><td>[facility]</td><td>10/10/2020</td><td>8:21AM</td><td>9:36AM</td><td><content ID="encounterDiagnosisID3-0">Episodic Mood Disorders</content>, <content ID="encounterDiagnosisID3-1">Essential Hypertension Benign</content>, <content ID="encounterDiagnosisID3-2">Hyperlipidemia</content>, <content ID="encounterDiagnosisID3-3">Depression with Anxiety</content>, <content ID="encounterDiagnosisID3-4">Gout</content></td>Outpatient Attender: Ephraim Nix MD [facility], 10/10/2020 08:21:00 AM EST - 10/10/2020 09:36:00 AM EST GoutDepression with AnxietyEpisodic Mood DisordersGoutDepression with AnxietyEpisodic Mood DisordersGoutDepression with AnxietyEpisodic Mood DisordersHyperlipidemiaEssential Hypertension BenignHyperlipidemiaEssential Hypertension BenignHyperlipidemiaEssential Hypertension Benign [place] ([facility]) Gout Depression with Anxiety Episodic Mood Disorders Gout Depression with Anxiety Episodic Mood Disorders Gout Depression with Anxiety Episodic Mood Disorders Hyperlipidemia Essential Hypertension Benign Hyperlipidemia Essential Hypertension Benign Hyperlipidemia Essential Hypertension Benign Outpatient Attender: Román Keane MD [id number] 10/10/2020 12:00:00 AM EST [facility] Outpatient Attender: Román Keane MDConsultant: Homero contreras MD 09/26/2020 06:53:00 AM EST - 09/26/2020 07:53:00 AM EST [facility] Outpatient [address] [id number] 09/24/2020 12:00:00 AM EST [facility] ([facility]) Outpatient<td ID="encounterTypeDescripti onID4">STANDARD OV</td><td>Ephraim Nix MD</td><td>[facility]</td><td>08/31/2020</td><td>8:31AM</td><td>9:17AM</td><td><content ID="encounterDiagnosisID4-0">Prostate Cancer</content>, <content ID="encounterDiagnosisID4-1">Essential Hypertension Benign</content>, <content ID="encounterDiagnosisID4-2">Arthralgia - Left Foot</content>, <content ID="encounterDiagnosisID4-3">Gout Primary</content></td> Attender: Ephraim Nix MD [facility] 08/31/2020 08:31:00 AM EST - 08/31/2020 09:17:00 AM EST Gout PrimaryArthralgia - Left FootGout P rimaryArthralgia - Left FootGout PrimaryArthralgia - Left FootProstate CancerProstate CancerProstate CancerEssential Hypertension BenignEssential Hypertension BenignEssential Hypertension Benign [place] ([facility]) Gout Primary Arthralgia - Left Foot Gout Primary Arthralgia - Left Foot Gout Primary Arthralgia - Left Foot Prostate Cancer Prostate Cancer Prostate Cancer Essential Hypertension Benign Essential Hypertension Benign Essential Hypertension Benign Outpatient Attender: Ephraim Nix MDConsultant: Homero jarrell MD 08/28/2020 06:33:00 AM EST - 08/28/2020 07:33:00 AM EST [facility] Outpatient [address], [facility] [id number] 08/21/2020 12:00:00 AM EST eCW1 ([facility]) Outpatient Attender: Román Keane MD [id number] 08/01/2020 12:00:00 AM EST [facility] <td ID="encounterTypeDescriptionID5">STA NDARD OV</td><td>Ephraim Nix MD</td><td>[facility]</td><td>07/31/2020</td><td>8:07AM</td><td>8:49AM</td><td><content ID="encounterDiagnosisID5-0">Essential Hypertension Benign</content>, <content ID="encounterDiagnosisID5-1">Hyperlipidemia</content>, <content ID="encounterDiagnosisID5-2">Arthralgia</content></td>Outpatient Attender: Ephraim Nix MD [facility] 07/31/2020 08:07:00 AM EST - 07/31/2020 08:49:00 AM EST ArthralgiaArthralgiaArthralgiaArthralgiaArthralgiaHyperlipidemiaEssential Hypertension BenignHyperlipidemiaEssential Hypertension BenignHyperlipidemiaEssential Hypertension BenignHyperlipidemiaEssential Hypertension BenignHyperlipidemiaEssential Hypertension Benign [place] ([facility]) Arthralgia Arthralgia Arthralgia Arthralgia Arthralgia Hyperlipidemia Essential Hypertension Benign Hyperlipidemia Essential Hypertension Benign Hyperlipidemia Essential Hypertension Benign Hyperlipidemia Essential Hypertension Benign Hyperlipidemia Essential Hypertension Benign Outpatient Attender: DAVID PAGAN MD Physical Therapy 08:30:00 AM EST [facility] ([facility]) Outpatient Attender: Ephraim Nxi MDConsultant: Homero jarrell MD 07/04/2020 06:49:00 AM EST - 07/04/2020 07:49:00 AM EST [facility] Outpatient Attender: Román Keane MDConsultant: Homero contreras MD 07/04/2020 06:46:00 AM EST - 07/04/2020 07:46:00 AM EST [facility] <td ID="encounterTypeDescriptionID6">EXT ENDED VISIT</td><td>Ephraim Nix MD</td><td>[facility]</td><td>07/03/2020</td><td>8:48AM</td><td>9:29AM</td><td><content ID="encounterDiagnosisID6-0">Anemia Normochromic, Normocytic</content>, <content ID="encounterDiagnosisID6-1">Prostate Cancer</content>, <content ID="encounterDiagnosisID6-2">Hyperuricemia</content>, <content ID="encounterDiagnosisID6-3">Arthralgia</content></td>Outpatient Attender: Ephraim Nix MD [facility] 07/03/2020 08:48:00 AM EST - 07/03/2020 09:29:00 AM EST HyperuricemiaHyperuricemiaHyperuricemiaHyperuricemiaHyperuricemiaHyperuricemiaAn emia Normochromic, NormocyticAnemia Normochromic, NormocyticAnemia Normochromic, NormocyticAnemia Normochromic, NormocyticAnemia Normochromic, NormocyticAnemia Normochromic, NormocyticProstate CancerProstate CancerProstate CancerProstate CancerProstate CancerProstate CancerArthralgiaArthralgiaArthralgiaArthralgiaArthralgiaArthralgia [place] ([facility]) Hyperuricemia Hyperuricemia Hyperuricemia Hyperuricemia Hyperuricemia Hyperuricemia Anemia Normochromic, Normocytic Anemia Normochromic, Normocytic Anemia Normochromic, Normocytic Anemia Normochromic, Normocytic Anemia Normochromic, Normocytic Anemia Normochromic, Normocytic Prostate Cancer Prostate Cancer Prostate Cancer Prostate Cancer Prostate Cancer Prostate Cancer Arthralgia Arthralgia Arthralgia Arthralgia Arthralgia Arthralgia Outpatient Attender: DAVID PAGAN MD Physical Therapy 07:45:00 AM EST [facility] Attender: DAVID PAGAN MDConsultant: Homero Mcelroy MD 06/22/2020 11:06:00 AM EDT - 06/22/2020 12:06:00 PM EDT [facility] Outpatient Attender: DAVID PAGAN MD Physical Therapy 08:15:00 AM EDT [facility] ([facility] ) Emergency Attender: AMA BENNETT MDConsultant: Homero jarrell MD 05/27/2020 09:49:00 AM EDT - 05/27/2020 03:10:00 PM EDT [facility] Patient discharged. Outpatient 05/25/2020 12:09:00 PM EDT [facility] Emergency Attender: AMA BENNETT MDConsultant: Homero jarrell MD 05/25/2020 11:28:00 AM EDT - 05/25/2020 02:24:00 PM EDT [facility] Patient discharged. Immunizations Vaccine Date Status Description Data Source(s) COVID-19 Pfizer 11/21/2020 08:17:00 AM EDT completed <td ID="Yfafxjguhhypb-Agawxaurmid-WO8">COVID-19 Pfizer</td><td ID="ImmunizationDose- 1">2</td><td>11/21/2020</td><td ID="Lxfmgztpogsqw-CvmfdGucb-VV6"></td><td></td> <td ID="Sppwuraeifqpl-Zjflqv-MO9">Complete (Reported)</td><td>Patient</td><td ID="Hdtjginqhdiqh-Vrmkd-Jxdj-Comment-ID1"></td> [facility]) COVID-19 VACCINE Pfizer 11/21/2020 12:00:00 AM EDT completed [employer] Vaccine Series Complete: YESThis Data wa s Submitted to [facility] Via [employer]. COVID-19 Pfizer 10/31/2020 08:17:00 AM EST completed <td ID="Flrhwgyvznvza-Zkdukwzwtmz-GN7">COVID-19 Pfizer</td><td ID="ImmunizationDose- 0">1</td><td>10/31/2020</td><td ID="Kqzoylywplavn-KsxrzWwal-ME4"></td><td></td> <td ID="Tczffgdhpeqrl-Cdfjsx-LX1">Complete (Reported)</td><td>Patient</td><td ID="Xnmhrfxovpyog-Dakem-Eypc-Comment-ID0"></td> [facility]) COVID-19 VACCINE Pfizer 10/31/2020 12:00:00 AM EST completed [employer] Vaccine Series Complete: NOThis Data was Submitted to [facility] Via [employer]. 10/10/2020 09:12:00 AM EST completed <td ID="Xybefnqhelavl-Vbzhzojwlhq-HW3">SHING[employer]X</td><td ID="ImmunizationDose- 4">1</td><td>10/10/2020</td><td ID="Ugaqdznxqydwt-QzbslMvog-AL8"></td><td></td> <td ID="Dgzzxlxcxzbmd-Vdspce-DS6">Complete (Refused - Patient objection)</td><td>[facility] </td><td ID="Xmcqsrhuyxwen-Zjhgk-Vfay-Comment-ID4"></td> [place] ([facility]) pneumococcal polysaccharide PPV23 08/31/2020 09:08:00 AM EST com pleted <td ID="Irsmjeezcvute-Mknebeyizee-PY9">PCV (Pneumovax 23) ages 2+</td><td ID="ImmunizationDose-3">1</td><td>08/31/2020</td><td ID="Eovyyolwgzcuo-NktizRigo-II3"></td><td></td><td ID="Qelwumyplykml-Dojdbh-HH7">Complete (Refused - Patient objection)</td><td>[facility] </td><td ID="Jsxacgsgtfgun-Vstws-Nbfa-Comment-ID3"></td> [place] ([facility]) This CVX code allows reporting of a vacc ination when formulation is unknown (for example, when recording a Influenza vaccination when noted on a vaccination card) 07/31/2020 08:36:00 AM EST completed <td ID="Spdedkpprvddu-Zfreffobdyi-JF4">Influenza,NOS</td><td ID="ImmunizationDose- 2">1</td><td>07/31/2020</td><td ID="Knzlgxyqowcot-LyoohYber-TK9"></td><td></td> <td ID="Idjfuuethndcy-Hpryty-SA9">Complete (Refused - Patient objection)</td><td>[facility]</td><td ID="Aorcffdrfsmot-Zyxjd-Gdlr-Comment-ID2"></td> [place] ([facility]) Medications Medication Brand Name Start Date Product Form Dose Route Admi nistrative Instructions Pharmacy Instructions Status Indications Reaction Description Data Source(s) 300 mg 06/25/2021 12:00:00 AM EDT tablet 90 TAKE ONE TABLET BY MOUTH EVERY DAY TAKE ONE TABLET BY MOUTH EVERY DAY SOLD: 07/01/2021 [facility] 20 mg 06/25/2021 12:00:00 AM EDT tablet 90 TAKE ONE TABLET BY MOUTH EVERY DAY TAKE ONE TABLET BY MOUTH EVERY DAY SOLD: 07/01/2021 [facility] 50 mg 06/25/2021 12:00:00 AM EDT tablet 180 TAKE ONE TABLET BY MOUTH TWICE A DAY TAKE ONE TABLET BY MOUTH TWICE A DAY SOLD: 07/01/2021 [facility] 17 gram/dose 04/05/2021 12:00:00 AM EDT powder 510 USE DIRECTED BY DOCTOR FOR BOWEL PREP USE DIRECTED BY DOCTOR FOR BOWEL PREP SOLD: 04/11/2021 [facility] POLYETHYLENE GLYCOL 3350 142 MG/ML Oral Solution [Miralax] M iralax 04/04/2021 12:00:00 AM EDT active [facility] ([facility], ) Magnesium Hydroxide 80 MG/ML Oral Suspension Milk Of Magnesi a 04/04/2021 12:00:00 AM EDT ORAL active [facility] ([facility], ) Hydrochlorothiazide 25 MG / Spironolactone 25 MG Oral Tablet 25-25 mg SPIRONOLACT/HYDROCHLOROTHIAZID 04/01/2021 12:00:00 AM EDT tablet 90 TAKE ONE TABLET BY MOUTH ONCE DAILY TAKE ONE TABLET BY MOUTH ONCE DAILY SOLD: 04/04/2021 [facility] 20 mg 03/29/2021 12:00:00 AM EDT tablet 90 TAKE ONE TABLET BY MOUTH ONCE DAILY TAKE ONE TABLET BY MOUTH ONCE DAILY SOLD: 04/01/2021 [facility] 100 mg 03/29/2021 12:00:00 AM EDT tablet 90 TAKE ONE TABLET BY MOUTH ONCE DAILY TAKE ONE TABLET BY MOUTH ONCE DAILY SOLD: 04/01/2021 [facility] 2 mg 03/29/2021 12:00:00 AM EDT gum 110 CHEW 8 TO 12 PIECES OF GUM A DAY NEEDED FOR CRAVING CHEW 8 TO 12 PIECES OF GUM A DAY NEEDED FOR CRAVING SOLD: 04/01/2021 [facility] 50 mg 03/29/2021 12:00:00 AM EDT tablet 180 TAKE ONE TABLET BY MOUTH TWO TIMES A DAY TAKE ONE TABLET BY MOUTH TWO TIMES A DAY SOLD: 04/01/2021 [facility] 300 mg 03/29/2021 12:00:00 AM EDT tablet 90 TAKE ONE TABLET BY MOUTH ONCE DAILY TAKE ONE TABLET BY MOUTH ONCE DAILY SOLD: 04/01/2021 [facility] Hydrochlorothiazide 25 MG / Spironolactone 25 MG Oral Tablet 25-25 mg SPIRONOLACT/HYDROCHLOROTHIAZID 03/08/2021 12:00:00 AM EDT tablet 30 TAKE ONE TABLET BY MOUTH EVERY DAY TAKE ONE TABLET BY MOUTH EVERY DAY SOLD: 03/11/2021 [facility] Hydrochlorothiazide 25 MG / Spironolactone 25 MG Oral Tablet 25-25 mg SPIRONOLACT/HYDROCHLOROTHIAZID 02/07/2021 12:00:00 AM EDT tablet 30 TAKE ONE TABLET BY MOUTH EVERY DAY TAKE ONE TABLET BY MOUTH EVERY DAY SOLD: 02/08/2021 [facility] 50 mg 02/06/2021 12:00:00 AM EDT tablet 60 TAKE ONE TABLET BY MOUTH TWICE A DAY TAKE ONE TABLET BY MOUTH TWICE A DAY SOLD: 03/11/2021 [facility] 50 mg 02/06/2021 12:00:00 AM EDT tablet 60 TAKE ONE TABLET BY MOUTH TWICE A DAY TAKE ONE TABLET BY MOUTH TWICE A DAY SOLD: 02/07/2021 [facility] 20 mg 01/10/2021 12:00:00 AM EDT tablet 30 TAKE ONE TABLET BY MOUTH EVERY DAY TAKE ONE TABLET BY MOUTH EVERY DAY SOLD: 03/11/2021 [facility] 20 mg 01/10/2021 12:00:00 AM EDT tablet 30 TAKE ONE TABLET BY MOUTH EVERY DAY TAKE ONE TABLET BY MOUTH EVERY DAY SOLD: 02/07/2021 [facility] 20 mg 01/10/2021 12:00:00 AM EDT tablet 30 TAKE ONE TABLET BY MOUTH EVERY DAY TAKE ONE TABLET BY MOUTH EVERY DAY SOLD: 01/11/2021 [facility] Sertraline 100 MG Oral Tablet Sertraline HCl 100 MG Or al Tablet Sertraline HCl 100 MG Oral Tablet 01/08/2021 12:00:00 AM EDT 1 active sertraline 100 MG Oral Tablet [place] ([facility]) 100 mg 01/08/2021 12:00:00 AM EDT tablet 30 TAKE 1 TABLET BY MOUTH EVERY DAY TAKE 1 TABLET BY MOUTH EVERY DAY SOLD: 01/10/2021 [facility] Allopurinol 300 MG Oral Tablet Allopurinol 300 MG Oral Table t 01/08/2021 12:00:00 AM EDT 1 active allopuri nol 300 MG Oral Tablet [place] ([facility]) 12.5 mg 01/02/2021 12:00:00 AM EDT capsule 60 TAKE TWO CAPSULES BY MOUTH EVERY MORNING TAKE TWO CAPSULES BY MOUTH EVERY MORNING SOLD: 01/08/2021 [facility] Hydrochlorothiazide 12.5 MG Oral Tablet hydroCHLOROthi azide 12.5 MG Oral Tablet hydroCHLOROthiazide 12.5 MG Oral Tablet 01/02/2021 12:00:00 AM EDT active hydrochlorothiazide 12.5 MG Oral Tablet [place] ([facility]) 50 mg 12/10/2020 12:00:00 AM EDT tablet 60 TAKE ONE TABLET BY MOUTH TWICE A DAY TAKE ONE TABLET BY MOUTH TWICE A DAY SOLD: 12/10/2020 [facility] 50 mg 12/10/2020 12:00:00 AM EDT tablet 60 TAKE ONE TABLET BY MOUTH TWICE A DAY TAKE ONE TABLET BY MOUTH TWICE A DAY SOLD: 01/08/2021 [facility] 10 mg 12/06/2020 12:00:00 AM EDT tablet 30 TAKE ONE TABLET BY MOUTH EVERY DAY AT BEDTIME TAKE ONE TABLET BY MOUTH EVERY DAY AT BEDTIME SOLD: 01/08/2021 [facility] 10 mg 12/06/2020 12:00:00 AM EDT tablet 30 TAKE ONE TABLET BY MOUTH EVERY DAY AT BEDTIME TAKE ONE TABLET BY MOUTH EVERY DAY AT BEDTIME SOLD: 12/08/2020 [facility] Simvastatin 10 MG Oral Tablet Simvastatin 10 MG Oral Tablet 12/04/2020 12:00:00 AM EDT active simvastatin 10 MG Oral Tablet [place] ([facility]) Losartan Potassium 50 MG Oral Tablet Losartan Potassium 50 M G Oral Tablet 11/19/2020 12:00:00 AM EDT active losartan potassium 50 MG Oral Tablet [place] ([facility]) Sertraline 100 MG Oral Tablet Sertraline HCl 100 MG Or al Tablet Sertraline HCl 100 MG Oral Tablet 11/07/2020 12:00:00 AM EDT 1 aborted sertraline 100 MG Oral Tablet [place] ([facility]) 100 mg 11/07/2020 12:00:00 AM EDT tablet 30 TAKE ONE TABLET BY MOUTH EVERY DAY TAKE ONE TABLET BY MOUTH EVERY DAY SOLD: 11/09/2020 [facility] 100 mg 11/07/2020 12:00:00 AM EDT tablet 30 TAKE ONE TABLET BY MOUTH EVERY DAY TAKE ONE TABLET BY MOUTH EVERY DAY SOLD: 12/10/2020 [facility] 50 mg 10/25/2020 12:00:00 AM EST tablet 30 TAKE ONE TABLET BY MOUTH EVERY DAY TAKE ONE TABLET BY MOUTH EVERY DAY SOLD: 10/26/2020 [facility] 50 mg 10/10/2020 12:00:00 AM EST tablet 30 TAKE ONE TABLET BY MOUTH EVERY DAY TAKE ONE TABLET BY MOUTH EVERY DAY SOLD: 10/12/2020 [facility] Sertraline 50 MG Oral Tablet Sertraline HCl 50 MG Oral Tablet Sertraline HCl 50 MG Oral Tablet 10/10/2020 12:00:00 AM EST 1 abo rted sertraline 50 MG Oral Tablet [place] ([facility]) 300 mg 10/08/2020 12:00:00 AM EST tablet 30 TAKE ONE TABLET BY MOUTH EVERY DAY TAKE ONE TABLET BY MOUTH EVERY DAY SOLD: 10/12/2020 [facility] 300 mg 10/08/2020 12:00:00 AM EST tablet 30 TAKE ONE TABLET BY MOUTH EVERY DAY TAKE ONE TABLET BY MOUTH EVERY DAY SOLD: 02/07/2021 [facility] 300 mg 10/08/2020 12:00:00 AM EST tablet 30 TAKE ONE TABLET BY MOUTH EVERY DAY TAKE ONE TABLET BY MOUTH EVERY DAY SOLD: 03/11/2021 [facility] 300 mg 10/08/2020 12:00:00 AM EST tablet 30 TAKE ONE TABLET BY MOUTH EVERY DAY TAKE ONE TABLET BY MOUTH EVERY DAY SOLD: 11/09/2020 [facility] 300 mg 10/08/2020 12:00:00 AM EST tablet 30 TAKE ONE TABLET BY MOUTH EVERY DAY TAKE ONE TABLET BY MOUTH EVERY DAY SOLD: 12/08/2020 [facility] 300 mg 10/08/2020 12:00:00 AM EST tablet 30 TAKE ONE TABLET BY MOUTH EVERY DAY TAKE ONE TABLET BY MOUTH EVERY DAY SOLD: 01/08/2021 [facility] Hydrochlorothiazide 12.5 MG Oral Tablet HYDROCHLOROTHIAZIDE 09/29/2020 12:00:00 AM EST tablet 60 TAKE TWO TABLETS BY MOUTH EV JOHN MORNING TAKE TWO TABLETS BY MOUTH EVERY MORNING SOLD: 12/10/2020 [facility] Hydrochlorothiazide 12.5 MG Oral Tablet HYDROCHLOROTHIAZIDE 09/29/2020 12:00:00 AM EST tablet 14 TAKE TWO TABLETS BY MOUTH EV JOHN MORNING TAKE TWO TABLETS BY MOUTH EVERY MORNING SOLD: 11/11/2020 [facility] Hydrochlorothiazide 12.5 MG Oral Tablet HYDROCHLOROTHIAZIDE 09/29/2020 12:00:00 AM EST tablet 42 TAKE TWO TABLETS BY MOUTH EV JOHN MORNING TAKE TWO TABLETS BY MOUTH EVERY MORNING SOLD: 11/18/2020 [facility] Hydrochlorothiazide 12.5 MG Oral Tablet HYDROCHLOROTHIAZIDE 09/29/2020 12:00:00 AM EST tablet 60 TAKE TWO TABLETS BY MOUTH EV JOHN MORNING TAKE TWO TABLETS BY MOUTH EVERY MORNING SOLD: 09/29/2020 [facility] Prednisone 5 MG Oral Tablet predniSONE 5 MG Oral Table t (DELTASONE) predniSONE 5 MG Oral Tablet (DELTASONE) 09/24/2020 12:00:00 AM EST active TAKE 1 TABLET BY MOUTH FOR 2 WEEKS THEN 1 TABLET EVERY OTHER DAY FOR 2 WEEKS THEN DIRECTED IF NEEDED FOR [facility] Prednisone 5 MG Oral Tablet PredniSONE 5 MG PredniSONE 5 MG 09/24/2020 12:00:00 AM EST 1.0 {tablet} active PredniSONE 5 MG eCW1 ([facility]) 5 mg 09/24/2020 12:00:00 AM EST tablet 30 TAKE 1 TABLET BY MOUTH FOR 2 WEEKS, THEN 1 TABLET EVERY OTHER DAY FOR 2 WEEKS, THEN DIRECTED IF NEEDED FOR FLARE TAKE 1 TABLET BY MOUTH FOR 2 WEEKS, THEN 1 TABLET EVERY OTHER DAY FOR 2 WEEKS, THEN DIRECTED IF NEEDED FOR FLARE SOLD: 09/27/2020 [facility] 5 mg 09/24/2020 12:00:00 AM EST tablet 30 TAKE 1 TABLET BY MOUTH FOR 2 WEEKS, THEN 1 TABLET EVERY OTHER DAY FOR 2 WEEKS, THEN DIRECTED IF NEEDED FOR FLARE TAKE 1 TABLET BY MOUTH FOR 2 WEEKS, THEN 1 TABLET EVERY OTHER DAY FOR 2 WEEKS, THEN DIRECTED IF NEEDED FOR FLARE SOLD: 10/26/2020 [facility] Prednisone 5 MG Oral Tablet predniSONE 5 MG predniSONE 5 MG 09/24/2020 12:00:00 AM EST 1.0 {tablet} active predniSONE 5 MG [facility] ([facility]) 50 mg 09/17/2020 12:00:00 AM EST tablet 60 TAKE ONE TABLET BY MOUTH TWICE A DAY TAKE ONE TABLET BY MOUTH TWICE A DAY SOLD: 09/17/2020 [facility] 50 mg 09/17/2020 12:00:00 AM EST tablet 60 TAKE ONE TABLET BY MOUTH TWICE A DAY TAKE ONE TABLET BY MOUTH TWICE A DAY SOLD: 11/09/2020 [facility] Hydrochlorothiazide 12.5 MG Oral Tablet hydroCHLOROthi azide 12.5 MG Oral Tablet hydroCHLOROthiazide 12.5 MG Oral Tablet 09/17/2020 12:00:00 AM EST aborted hydrochlorothiazide 12.5 MG Oral Tablet [place] ([facility]) 50 mg 09/17/2020 12:00:00 AM EST tablet 60 TAKE ONE TABLET BY MOUTH TWICE A DAY TAKE ONE TABLET BY MOUTH TWICE A DAY SOLD: 10/12/2020 [facility] 10 mg 09/16/2020 12:00:00 AM EST tablet 30 TAKE ONE TABLET BY MOUTH AT BEDTIME TAKE ONE TABLET BY MOUTH AT BEDTIME SOLD: 10/12/2020 [facility] 300 mg 09/16/2020 12:00:00 AM EST tablet 30 TAKE ONE TABLET BY MOUTH EVERY DAY TAKE ONE TABLET BY MOUTH EVERY DAY SOLD: 09/17/2020 [facility] 10 mg 09/16/2020 12:00:00 AM EST tablet 30 TAKE ONE TABLET BY MOUTH AT BEDTIME TAKE ONE TABLET BY MOUTH AT BEDTIME SOLD: 09/17/2020 [facility] 10 mg 09/16/2020 12:00:00 AM EST tablet 30 TAKE ONE TABLET BY MOUTH AT BEDTIME TAKE ONE TABLET BY MOUTH AT BEDTIME SOLD: 11/09/2020 [facility] Hydrochlorothiazide 12.5 MG Oral Tablet HYDROCHLOROTHIAZIDE 09/12/2020 12:00:00 AM EST tablet 16 TAKE ONE TABLET BY MOUTH DAX RY MORNING TAKE ONE TABLET BY MOUTH EVERY MORNING SOLD: 10/26/2020 [facility] Hydrochlorothiazide 12.5 MG Oral Tablet HYDROCHLOROTHIAZIDE 09/12/2020 12:00:00 AM EST tablet 30 TAKE ONE TABLET BY MOUTH DAX RY MORNING TAKE ONE TABLET BY MOUTH EVERY MORNING SOLD: 09/13/2020 [facility] Hydrochlorothiazide 12.5 MG Oral Tablet hydroCHLOROthi azide 12.5 MG Oral Tablet hydroCHLOROthiazide 12.5 MG Oral Tablet 08/31/2020 12:00:00 AM EST aborted hydrochlorothiazide 12.5 MG Oral Tablet [place] ([facility]) Allopurinol 300 MG Oral Tablet Allopurinol 300 MG Oral Table t 08/31/2020 12:00:00 AM EST 1 aborted allopur inol 300 MG Oral Tablet [place] ([facility]) Losartan Potassium 50 MG Oral Tablet Losartan Potassium 50 M G Oral Tablet 08/31/2020 12:00:00 AM EST aborted losartan potassium 50 MG Oral Tablet [place] ([facility]) Allopurinol 300 MG Oral Tablet Allopurinol 300 MG 08/21/2020 12:00: 00 AM EST 1.0 {tablet} active Allopurinol 300 MG eCW1 ([facility]) Allopurinol 300 MG Oral Tablet Allopurinol 300 MG 08/21/2020 12:00: 00 AM EST active Allopurinol 300 MG eCW1 ([facility]) Allopurinol 300 MG Oral Tablet Allopurinol 300 MG 08/21/2020 12:00: 00 AM EST 1.0 {tablet} active Allopurinol 300 MG eCW1 ([facility]) Prednisone 10 MG Oral Tablet PredniSONE 10 MG PredniSONE 10 MG 08/10/2020 12:00:00 AM EST 2.0 {tablet} active Pr edniSONE 10 MG eCW1 ([facility]) Prednisone 10 MG Oral Tablet PredniSONE 10 MG PredniSONE 10 MG 08/10/2020 12:00:00 AM EST 2.0 {tablet} suspended PredniSONE 10 MG eCW1 ([facility]) Prednisone 10 MG Oral Tablet predniSONE 10 MG predniSONE 10 MG 08/10/2020 12:00:00 AM EST 2.0 {tablet} suspended predniSONE 10 MG eCW1 ([facility]) 10 mg 08/10/2020 12:00:00 AM EST tablet 120 TAKE TWO TABLETS BY MOUTH TWICE A DAY TAKE TWO TABLETS BY MOUTH TWICE A DAY SOLD: 08/10/2020 [facility] Losartan Potassium 50 MG Oral Tablet Losartan Potassium 50 M G Oral Tablet 07/31/2020 12:00:00 AM EST aborted losartan potassium 50 MG Oral Tablet [place] ([facility]) Simvastatin 10 MG Oral Tablet Simvastatin 10 MG Oral Tablet 07/31/2020 12:00:00 AM EST aborted simvastatin 10 M G Oral Tablet [place] ([facility]) Hydrochlorothiazide 12.5 MG Oral Tablet hydroCHLOROthi azide 12.5 MG Oral Tablet hydroCHLOROthiazide 12.5 MG Oral Tablet 07/31/2020 12:00:00 AM EST aborted hydrochlorothiazide 12.5 MG Oral Tablet [place] ([facility]) 50 mg 07/31/2020 12:00:00 AM EST tablet 40 TAKE ONE TABLET BY MOUTH TWICE A DAY TAKE ONE TABLET BY MOUTH TWICE A DAY SOLD: 08/01/2020 [facility] Colchicine 0.6 MG Oral Tablet Colchicine 0.6 MG Oral Tablet 07/31/2020 12:00:00 AM EST aborted colchicine 0.6 M G Oral Tablet [place] ([facility]) Allopurinol 300 MG Oral Tablet Allopurinol 300 MG Oral Table t 07/31/2020 12:00:00 AM EST 1 aborted allopur inol 300 MG Oral Tablet [place] ([facility]) 50 mg 07/31/2020 12:00:00 AM EST tablet 60 TAKE ONE TABLET BY MOUTH TWICE A DAY TAKE ONE TABLET BY MOUTH TWICE A DAY SOLD: 08/21/2020 [facility] Losartan Potassium 50 MG Oral Tablet [place] Potassium 50 MG Oral Tablet ([facility]) Losartan Potassium 50 MG Oral Tablet (COZAAR) 07/31/20 12:00:00 AM EST active Two Times Daily [facility] 300 mg 07/03/2020 12:00:00 AM EST tablet 30 TAKE ONE TABLET BY MOUTH EVERY DAY TAKE ONE TABLET BY MOUTH EVERY DAY SOLD: 08/21/2020 [facility] Lisinopril 20 MG Oral Tablet Lisinopril 20 MG Oral Tablet 12:00:00 AM EST aborted lisinopril 20 MG Oral Tablet [facility]) Allopurinol 300 MG Oral Tablet Allopurinol 300 MG Oral Table t 07/03/2020 12:00:00 AM EST 1 aborted allopur inol 300 MG Oral Tablet [facility]) 0.6 mg 07/03/2020 12:00:00 AM EST tablet 30 TAKE ONE TABLET BY MOUTH TWICE A DAY TAKE ONE TABLET BY MOUTH TWICE A DAY SOLD: 07/20/2020 [facility] Colchicine 0.6 MG Oral Tablet Colchicine 0.6 MG Oral Tablet 07/03/2020 12:00:00 AM EST aborted colchicine 0.6 M G Oral Tablet [facility]) Colchicine 0.6 MG Oral Tablet Colchicine 0.6 MG Oral Tablet 07/03/2020 12:00:00 AM EST active colchicine 0.6 MG Oral Tablet [facility] Allopurinol 300 MG Oral Tablet Allopurinol 300 MG Oral Tablet (ZYLOPRIM) Allopurinol 300 MG Oral Tablet (ZYLOPRIM) 07/03/2020 12:00:00 AM EST 300 mg Oral active Take 300 mg by mouth daily [facility] 0.6 mg 07/03/2020 12:00:00 AM EST tablet 30 TAKE ONE TABLET BY MOUTH TWICE A DAY TAKE ONE TABLET BY MOUTH TWICE A DAY SOLD: 07/03/2020 [facility] 300 mg 07/03/2020 12:00:00 AM EST tablet 30 TAKE ONE TABLET BY MOUTH EVERY DAY TAKE ONE TABLET BY MOUTH EVERY DAY SOLD: 07/03/2020 [facility] 600 mg 06/22/2020 12:00:00 AM EDT tablet 60 TAKE ONE TABLET BY MOUTH THREE TIMES A DAY TAKE ONE TABLET BY MOUTH THREE TIMES A DAY SOLD: 07/20/2020 [facility] 600 mg 06/22/2020 12:00:00 AM EDT tablet 60 TAKE ONE TABLET BY MOUTH THREE TIMES A DAY TAKE ONE TABLET BY MOUTH THREE TIMES A DAY SOLD: 06/22/2020 [facility] Ibuprofen 600 MG Oral Tablet Ibuprofen 06/22/2020 12:00:00 AM EDT ORAL active [facility] ([facility] ) Hydrochlorothiazide 12.5 MG Oral Tablet HYDROCHLOROTHIAZIDE 06/19/2020 12:00:00 AM EDT tablet 30 TAKE ONE TABLET BY MOUTH DAX RY MORNING TAKE ONE TABLET BY MOUTH EVERY MORNING SOLD: 08/20/2020 [facility] Hydrochlorothiazide 12.5 MG Oral Tablet HYDROCHLOROTHIAZIDE 06/19/2020 12:00:00 AM EDT tablet 30 TAKE ONE TABLET BY MOUTH DAX RY MORNING TAKE ONE TABLET BY MOUTH EVERY MORNING SOLD: 07/20/2020 [facility] Hydrochlorothiazide 12.5 MG Oral Tablet HYDROCHLOROTHIAZIDE 06/19/2020 12:00:00 AM EDT tablet 30 TAKE ONE TABLET BY MOUTH DAX RY MORNING TAKE ONE TABLET BY MOUTH EVERY MORNING SOLD: 06/22/2020 [facility] 20 mg 06/18/2020 12:00:00 AM EDT tablet 30 TAKE ONE TABLET BY MOUTH EVERY DAY TAKE ONE TABLET BY MOUTH EVERY DAY SOLD: 06/22/2020 [facility] 10 mg 06/18/2020 12:00:00 AM EDT tablet 30 TAKE ONE TABLET BY MOUTH AT BEDTIME TAKE ONE TABLET BY MOUTH AT BEDTIME SOLD: 08/20/2020 [facility] 10 mg 06/18/2020 12:00:00 AM EDT tablet 30 TAKE ONE TABLET BY MOUTH AT BEDTIME TAKE ONE TABLET BY MOUTH AT BEDTIME SOLD: 06/22/2020 [facility] 20 mg 06/18/2020 12:00:00 AM EDT tablet 30 TAKE ONE TABLET BY MOUTH EVERY DAY TAKE ONE TABLET BY MOUTH EVERY DAY SOLD: 07/20/2020 [facility] 10 mg 06/18/2020 12:00:00 AM EDT tablet 30 TAKE ONE TABLET BY MOUTH AT BEDTIME TAKE ONE TABLET BY MOUTH AT BEDTIME SOLD: 07/20/2020 [facility] Clindamycin 300 MG Oral Capsule CLINDAMYCIN HCL 05/25/2020 12:00 :00 AM EDT capsule 21 TAKE ONE CAPSULE BY MOUTH EVERY 8 HOURS FOR 7 DAYS TAKE ONE CAPSULE BY MOUTH EVERY 8 HOURS FOR 7 DAYS SOLD: 05/25/2020 [facility] 5-325 mg 05/25/2020 12:00:00 AM EDT tablet 9 TAKE ONE TABLET BY MOUTH EVERY 8 HOURS NEEDED FOR PAIN MAXIMUM DAILY DOSE = 3 TAKE ONE TABLET BY MOUTH EVERY 8 HOURS NEEDED FOR PAIN MAXIMUM DAILY DOSE = 3 SOLD: 05/25/2020 [facility] Simvastatin 10 MG Oral Tablet Simvastatin 10 MG Oral Tablet 05/08/2020 12:00:00 AM EDT aborted simvastatin 10 M G Oral Tablet [place] [facility]) Lisinopril 20 MG Oral Tablet Lisinopril 20 MG Oral Tablet 12:00:00 AM EDT aborted lisinopril 20 MG Oral Tablet [place] ([facility]) Hydrochlorothiazide 12.5 MG Oral Tablet hydroCHLOROthi azide 12.5 MG Oral Tablet hydroCHLOROthiazide 12.5 MG Oral Tablet 05/08/2020 12:00:00 AM EDT aborted hydrochlorothiazide 12.5 MG Oral Tablet [place] ([facility]) 10 mg 04/18/2020 12:00:00 AM EDT tablet 30 TAKE ONE TABLET BY MOUTH AT BEDTIME TAKE ONE TABLET BY MOUTH AT BEDTIME SOLD: 05/24/2020 [facility] 20 mg 03/22/2020 12:00:00 AM EDT tablet 30 TAKE ONE TABLET BY MOUTH EVERY DAY TAKE ONE TABLET BY MOUTH EVERY DAY SOLD: 05/24/2020 [facility] Hydrochlorothiazide 12.5 MG Oral Tablet HYDROCHLOROTHIAZIDE 03/21/2020 12:00:00 AM EDT tablet 30 TAKE ONE TABLET BY MOUTH DAX RY MORNING TAKE ONE TABLET BY MOUTH EVERY MORNING SOLD: 05/24/2020 [facility] Insurance Providers Payer name Policy type / Coverage type Policy ID Covered alliance party ID Covered alliance party's relationship to campos Policy Campos Plan Information [place] [employer] [place] Individual Policy 0 [id number] Self 0 [employer] [employer] [place] 0 [id number] Self 0 [employer] [place] 0 [id number] Self 0 [place] [employer] [place] Policy 0 [id number] Self 0 [place] 0 [id number] Self 0 [place] 0 [id number] Self 0 [place] Policy 0 [id number] Self 0 [employer] 0 [id number] Self 0 [place] 0 [id number] Self 0 [place] Policy 0 [id number] Self 0 [place] Policy 0 [id number] Self 0 [place] Policy 0 [id number] Self 0 [place] [employer] [place] Individual Policy 0 [id number] Self 0 [place] Individual Policy 0 [id number] Self 0 [place] Individual Policy 0 [id number] Self 0 [place] [id number] Self [id number] [place] 305/805 [id number] SP [id number] [place] [id number] 18 74 [id number] [place] [id number] SP 7 [id number] [employer] X[place] -[place] [id number] 18 [id number] [place] [id number] SP [id number] [place] [id number] Self [id number] [employer] [place] [id number] Self [id number] [employer] [place] [id number] 18 [id number] [place] [employer] [place] Other 0 [id number] Self 0 [employer] Other 0 [id number] Self 0 [place] [id number] S 74 [id number] [place] Other 0 [id number] Self 0 [place] Other 0 [id number] Self 0 [place] Other 0 [id number] Self 0 [place] Other 0 [id number] Self 0 [place] Other 0 [id number] Self 0 [place] Other 0 [id number] Self 0 [place] Other 0 [id number] Self 0 [place] [employer] [place] Other 0 [id number] Self 0 [employer] [id number] Self [id number] [employer] [place] [id number] [facility] [id number] Problems, Conditions, and Diagnoses Code Display Name Description Problem Type Effective Dates Data Source(s) C61 Malignant neoplasm of prostate Malignant neoplasm of p rostate Diagnosis 04/04/2021 06:51:00 AM EDT [facility] [id number] Drug-induced chronic gout, multiple site s, 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, multiple sites, without tophus (tophi) Diagnosis 12/31/2020 06:57:00 AM EDT [facility] N5231 Erectile dysfunction following radical p rostatectomy Erectile dysfunction following radical prostatectomy Diagnosis 12/31/2020 06:55:00 AM EDT [facility] E782 Mixed hyperlipidemia Mixed hyperlipidemia Diagnosis 12/31/2020 06:55:00 AM EDT [facility] I10 Essential (primary) hypertension Essential (primary) h ypertension Diagnosis 12/31/2020 06:55:00 AM [facility] M109 Gout, unspecified Gout, unspecified Diagnosis 12/31/2020 06:55:00 AM [facility] R9721 Rising PSA following treatment for malig nant neoplasm of prostate Rising PSA following treatment for malignant neoplasm of prostate Diagnosis 09/26/2020 06:53:[address] [facility] [id number] Encounter for preprocedural laboratory e xamination Encounter for preprocedural laboratory examination Diagnosis 09/26/2020 06:53:[address] [facility] E790 Hyperuricemia without signs of inflammatory arthritis and tophaceous disease Hyperuricemia without signs of inflammat ory arthritis and tophaceous disease Diagnosis 07/04/2020 06:49:[address] [facility] D649 Anemia, unspecified Anemia, unspecified Diagnosis 1 09/03/2019 06:49:[address] [facility] [id number] Primary osteoarthritis, left ankle and f oot Primary osteoarthritis, left ankle and foot Diagnosis [facility] Personal history of nicotine dependence Personal history of nicotine dependence Diagnosis 05/27/2020 09:49:00 AM EDT [facility] E7800 Pure hypercholesterolemia, unspecified P ure hypercholesterolemia, unspecified Diagnosis 05/27/2020 09:49:00 AM [facility] N01894 Cellulitis of left lower limb Cellulitis of left lower limb Diagnosis 05/27/2020 09:49:00 AM [facility] R600 Localized edema Localized edema Diagnosis 05/27/2020 09:4 9:00 AM [facility] Z23 Encounter for immunization Encounter for immunization Diagnosis 05/25/2020 11:28:00 AM [facility] S33238 Pain in left foot Pain in left foot Diagnosis 05/25/2020 11:28:00 AM [facility] [id number] 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 Problem 09/24/2020 12:00:00 AM EST eCW1 ([facility]) M10.9 [id number] Acute gout of left foot, unspecified cause Problem 08/10/2020 12:00:00 AM EST eCW1 ([facility]) M15.9 [id number] Generalized osteoarthritis Problem 0 12:00:00 AM EST eCW1 ([facility]) [id number] Essential hypertension Essential hypertension Problem 06/22/2020 12:00:00 AM EDT [facility] ([facility] ) [id number] Pure hypercholesterolemia Pure hypercholesterolemia Pr oblem 06/22/2020 12:00:[address] [facility] Surgeries/Procedures Procedure Description Date Indications Data Source(s) FECAL BLOOD ASSAY TEST FECAL BLOOD ASSAY TEST 01/08/2021 12:00:00 A M [facility] ([facility]) ELECTROCARDIOGRAM, COMPLETE (EKG) ELECTROCARDIOGRAM, COMPLET E (EKG) 01/08/2021 12:00:00 AM [facility] ([facility]) Apply Cast Short Leg Walking 06/29/2020 12:00:00 AM ES T [facility] ([facility] ) APPLICATION SHORT LEG CAST BELOW KNEE-TOE 06/29/2020 1 2:00:00 AM EST [facility] ([facility] ) RADEX FOOT COMPLETE MINIMUM 3 VIEWS 06/22/2020 12:00:0 0 AM EDT [facility] ([facility]) Apply Cast Short Leg Walking 06/22/2020 12:00:00 AM ED T [facility] ([facility]) Results ID Date Data Source [id number] 04/06/2021 08:03:00 PM EDT [facility] Name Value Range Interpretation Code Description Data Greta rce(s) Supporting Document(s) Testosterone [Mass/volume] in Serum or Plasma 11 ng/dL 264-916 L [facility] Adult male reference interval is based o n a population ofhealthy nonobese males (BMI <30) between 19 and 39 years old.Eric, et.al. JCEM 2017,102;2359-3590. PMID: 26616345. ID Date Data Source [id number] 04/04/2021 08:03:00 AM EDT [facility] Name Value Range Interpretation Code Description Data Greta rce(s) Supporting Document(s) Prostate specific Ag [Mass/volume] in Serum or Plasma <0.01 ng/mL 0.00 - 4.00 [facility] \\BLDo\\PSA INTERPRETA TION\\BLDx\\ The PSA assay should not be used alone for a screening test or diagnosis for presence or absence of malignant disease. Predictions of disease recurrence should not be based solely on values obtained from serial patient serum values. The PSA result was determined by "[employer]", on the Luana MARLENE 6000. Values obtained with different assay methods or kits cannot be used interchangeably. ID Date Data Source [id number] 12/31/2020 07:01:00 AM EDT [place] ([facility]) Name Value Range Interpretation Code Description Data Greta rce(s) Supporting Document(s) Reported Physicians See Note Reported Physici ans [place] ([facility]) Note: Reported Physicians:Ordering: Ephraim Victor AAttending: EPHRAIM NIXConsulting: Evangelist MCELROY To: Ephraim NixCopzofia To: JASON ABEBE ID Date Data Source [id number] 12/31/2020 07:01:00 AM EDT [place] ([facility]) Name Value Range Interpretation Code Description Data Greta rce(s) Supporting Document(s) CPK 102 U/L CPK [place] ([facility]) Note: Responsible Observer: (MLE) ID Date Data Source [id number] 12/31/2020 07:01:00 AM EDT [place] ([facility]) Name Value Range Interpretation Code Description Data Greta rce(s) Supporting Document(s) Reported Physicians See Note Reported Physici ans [place] ([facility]) Note: Reported Physicians:Ordering: Ephraim Victor AAttending: DIVYA NIXCELYNConsulting: Evangelist MCELROY To: Lakeisha NixynCopy To: JASON ABEBE ID Date Data Source [id number] 12/31/2020 07:01:00 AM EDT [place] ([facility]) Name Value Range Interpretation Code Description Data Greta rce(s) Supporting Document(s) #BASO 0.05 10\\^3/uL #BASO [place] ([facility]) Note: Responsible Observer: (LBS) #EOS 0.46 10\\^3/uL #EOS [place] ([facility]) Note: Responsible Observer: (LBS) #IG 0.04 10\\^3/uL #IG [place] ([facility]) Note: Responsible Observer: (LBS) #LYMPH 0.74 10\\^3/uL #LYMPH [place] ([facility]) Note: Responsible Observer: (LBS) #MONO 0.75 10\\^3/uL #MONO [place] ([facility]) Note: Responsible Observer: (LBS) #NEUT 4.72 10\\^3/uL #NEUT [place] ([facility]) Note: Responsible Observer: (LBS) #NRBC 0.00 10\\^3/uL #NRBC [place] ([facility]) Note: Responsible Observer: (LBS) %EOS 6 % %EOS [place] ([facility]) Note: Responsible Observer: (LBS) %IG 0.6 % Above high normal %IG [place] ([facility]) Note: Responsible Observer: (LBS) %LYMPH 16 % Below low normal %LYMPH [place] ([facility]) Note: Responsible Observer: (LBS) %MONO 14 % Above high normal %MONO [place] ([facility]) Note: Responsible Observer: (LBS) %NRBC 0.0 % %NRBC [place] ([facility]) Note: Responsible Observer: (LBS) BASO 0.7 % BASO [place] ([facility]) Note: Responsible Observer: (LBS) CBC W/MANUAL DIFF See Note CBC W/MANUAL DIFF [place] ([facility]) Note: COMPLETE BLOOD COUNTResponsibl e Observer: (LBS) EOS 6.8 % EOS [place] ([facility]) Note: Responsible Observer: (LBS) Hematocrit [Pure volume fraction] of Blood by Automated count 38 .4 % Below low normal HEMATOCRIT [place] ([facility]) Note: Responsible Observer: (LBS) Hemoglobin [Mass/volume] in Mixed venous blood by Oximetry 13.1 g/dL Below low normal HEMOGLOBIN [place] ([facility]) Note: Responsible Observer: (LBS) LYMPH 10.9 % Below low normal LYMPH [place] ([facility]) Note: Responsible Observer: (LBS) MANUAL DIFF SEE BELOW MANUAL DIFF [place] ([facility]) Note: Responsible Observer: (LBS) MCH 31.0 pg MCH [place] ([facility]) Note: Responsible Observer: (LBS) MCHC 34.1 g/dL MCHC [place] ([facility]) Note: Responsible Observer: (LBS) MCV 91.0 fL MCV [place] ([facility]) Note: Responsible Observer: (LBS) MONO 11.1 % Above high normal MONO [place] ([facility]) Note: Responsible Observer: (LBS) MPV 8.5 fL MPV [place] ([facility]) Note: Responsible Observer: (LBS) NEUT 69.9 % NEUT [place] ([facility]) Note: Responsible Observer: (LBS) Platelets [#/area] in Blood by Microscopy high power field 337 10\\^ 3/uL PLATELETS [place] ([facility]) Note: Responsible Observer: (LBS) RBC 4.22 10\\^6/uL Below low normal RBC [place] ([facility]) Note: Responsible Observer: (LBS) RBC MORPH NOT INDICATED RBC MORPH [place] ([facility]) Note: Responsible Observer: (LBS) RDW 13.8 % RDW [place] ([facility]) Note: Responsible Observer: (LBS) SEGS 64 % SEGS [place] ([facility]) Note: Responsible Observer: (LBS) WBC 6.8 10\\^3/uL WBC [place] ([facility]) Note: Responsible Observer: (LBS) ID Date Data Source [id number] 12/31/2020 07:01:00 AM EDT [place] ([facility]) Name Value Range Interpretation Code Description Data Greta rce(s) Supporting Document(s) Reported Physicians See Note Reported Physici ans [place] ([facility]) Note: Reported Physicians:Ordering: Ephraim Victor AAttending: EPHRAIM NIXConsulting: Evangelist MCELROY To: Ephraim NixCopzofia To: JASON ABEBE ID Date Data Source [id number] 12/31/2020 07:01:00 AM EDT [place] ([facility]) Name Value Range Interpretation Code Description Data Greta rce(s) Supporting Document(s) A/G RATIO 1.9 A/G RATIO [place] ([facility]) Note: Responsible Observer: (MLE) AFR AMER GFR >60 mL/min AFR AMER GFR [place] ([facility]) Note: Male GFR Interprentation 20- 49 yrs >60 mL/min Normal 50-59 yrs >56 mL/min Normal 60-69 yrs >49 mL/min Normal 70- 79yrs >42 mL/min Normal 80 and above >35 mL/min Normal Female GFR Interpretation 20-39 yrs >60 mL/min Normal 40-49 yrs >58 mL/min Normal 50-59 yrs >51 mL/min Normal 60-69 yrs >45 mL/min Normal 70-79 yrs >39 mL/min Normal 80 and above >32 mL/min NormalResponsible Observer: (MLE) Egg donor age 65 yrs AGE [place] ([facility]) Note: Responsible Observer: (MLE) Albumin [Mass/volume] in Blood by Bromocresol purple ( BCP) dye binding method 4.5 G/DL ALBUMIN [place] ([facility]) Note: Responsible Observer: (MLE) ALKALINE PHOS 94 U/L ALKALINE PHOS [place] ([facility]) Note: Responsible Observer: (MLE) Anion gap in Body fluid 9.0 mmol/L [facility] Note: Responsible Observer: (MLE) BUN 17 MG/DL BUN [place] ([facility]) Note: Responsible Observer: (MLE) BUN/CREAT 17 BUN/CREAT [place] ([facility]) Note: Responsible Observer: (MLE) Calcium [Moles/volume] in Urine collected for unspecified durati on 9.5 MG/DL CALCIUM [place] ([facility]) Note: Responsible Observer: (MLE) Chloride [Moles/volume] in Serum, Plasma or Blood 104 mEq/L CHLORIDE [place] ([facility]) Note: Responsible Observer: (MLE) CO2 27 MEQ/L CO2 [place] ([facility]) Note: Responsible Observer: (MLE) COMPREHENSIVE METABOLIC PANEL See Note COMPRE HENSIVE METABOLIC PANEL [place] ([facility]) Note: COMPREHENSIVE METABOLIC PANELR esponsible Observer: (MLE) Creatinine [Moles/volume] in Vitreous fluid 1.0 MG/DL CREATININE [place] ([facility]) Note: Responsible Observer: (MLE) Globulin [Mass/time] in 24 hour Urine 2.4 GM/DL GLOBULIN [place] ([facility]) Note: Responsible Observer: (MLE) Glucose [Mass/volume] in Urine collected for unspecified duratio n 114 MG/DL Above high normal GLUCOSE [place] ([facility]) Note: Responsible Observer: (MLE) NON-AA GFR >60 mL/min NON-AA GFR [place] ([facility]) Note: Responsible Observer: (MLE) Potassium [Mass/volume] in Blood 4.1 mEq/L POT ASSIUM [place] ([facility]) Note: Responsible Observer: (MLE) SGOT/AST 22 U/L SGOT/AST [place] ([facility]) Note: Responsible Observer: (MLE) SGPT/ALT 27 U/L SGPT/ALT [place] ([facility]) Note: Responsible Observer: (MLE) Sodium [Moles/volume] in Serum, Plasma or Blood 140 mEq/L SODIUM [place] ([facility]) Note: Responsible Observer: (MLE) TOTAL BILI <0.7 MG/DL TOTAL BILI [place] ([facility]) Note: Responsible Observer: (MLE) TOTAL PROTEIN 6.9 G/DL TOTAL PROTEIN [place] ([facility]) Note: Responsible Observer: (MLE) ID Date Data Source [id number] 12/31/2020 07:01:00 AM EDT [place] ([facility]) Name Value Range Interpretation Code Description Data Greta rce(s) Supporting Document(s) Reported Physicians See Note Reported Physic ans [place] ([facility]) Note: Reported Physicians:Ordering: Jules e, Ephraim AAttending: OLE, JOCELYNConsulting: LILIBETH LAWRENCECopy To: Ole JocelynCopy To: JASON ABEBE ID Date Data Source [id number] 12/31/2020 07:01:00 AM EDT [place] ([facility]) Name Value Range Interpretation Code Description Data Greta rce(s) Supporting Document(s) TSH 1.64 uIU/mL TSH [place] ([facility]) Note: Responsible Observer: (MLE) ID Date Data Source [id number] 12/31/2020 07:01:00 AM EDT [place] ([facility]) Name Value Range Interpretation Code Description Data Greta rce(s) Supporting Document(s) Reported Physicians See Note Reported [facility] ([facility]) Note: Reported Physicians:Ordering: Jules e, Ephraim AAttending: OLE, JOCELYNConsulting: LILIBETH, LAWRENCECopzofia To: Lakeisha NixynCopy To: JASON ABEBE ID Date Data Source [id number] 12/31/2020 07:01:00 AM EDT [place] ([facility]) Name Value Range Interpretation Code Description Data Greta rce(s) Supporting Document(s) URIC ACID 4.0 MG/DL URIC ACID [place] ([facility]) Note: Responsible Observer: (MLE) ID Date Data Source [id number] 01/01/2021 10:37:00 AM EDT [facility] Name Value Range Interpretation Code Description Data Greta rce(s) Supporting Document(s) Testosterone [Mass/volume] in Serum or Plasma 13 ng/dL [phone] L [facility] Adult male reference interval is based o n a population ofhealthy nonobese males (BMI <30) between 19 and 39 years old.Eric, et.al. JCEM 2017,102;7752-0530. PMID: [id number]. Please note reference interval change ID Date Data Source [id number] 12/31/2020 08:02:00 AM EDT [facility] Name Value Range Interpretation Code Description Data Greta rce(s) Supporting Document(s) Thyrotropin [Units/volume] in Serum or Plasma by Detec tion limit <= 0.05 mIU/L 1.64 uIU/mL 0.47 - 5.01 [facility] ID Date Data Source [id number] 12/31/2020 07:55:00 AM EDT [facility] Name Value Range Interpretation Code Description Data Greta rce(s) Supporting Document(s) [facility] Cholesterol [Mass/volume] in Serum or Plasma 176 MG/DL 131 - 200 [facility] Deprecated Triglyceride [Mass/volume] in Serum or Plasma 230 MG/DL 3 5 - 160 H [facility] HDL 43 MG/DL 29 - 86 [facility] Cholesterol in LDL [Mass/volume] in Serum or Plasma by Direc t assay 110 mg/dL 65 - 175 [facility] Cholesterol.total/Cholesterol in HDL [Mass Ratio] in Serum o r Plasma 4.1 3.4 - 4.9 [facility] Center LDL/HDL 2.56 1.00 - 3.55 [facility] ital CVE RISK CHOL/HDL LDL/HDLMEN: 1/2 AVERAGE 3.43 1.00 AVERAGE 4.97 3.55 2X AVERAGE 9.55 6.25 3X AVERAGE 23.99 7.99WOMEN: 1/2 AVERAGE 3.27 1.47 AVERAGE 4.44 3.22 2X AVERAGE 7.05 5.03 3X AVERAGE 11.04 6.14 ID Date Data Source [id number] 12/31/2020 07:55:00 AM EDT [facility] Name Value Range Interpretation Code Description Data Greta rce(s) Supporting Document(s) COMPREHENSIVE METABOLIC PANEL [facility] COMPREHENSIVE METABOLIC PANEL Sodium [Moles/volume] in Serum or Plasma 140 mEq/L 134 - 153 [facility] Potassium [Moles/volume] in Serum or Plasma 4.1 mEq/L 3.6 - 5.0 [facility] Chloride [Moles/volume] in Serum or Plasma 104 mEq/L 98 - 107 [facility] Carbon dioxide, total [Moles/volume] in Serum or Plasma 27 MEQ/L 22 - 30 [facility] Glucose [Mass/volume] in Serum or Plasma 114 MG/DL 70 - 99 H [facility] BUN 17 MG/DL 7 - 21 [facility] al Creatinine [Mass/volume] in Serum or Plasma 1.0 MG/DL 0.7 - 1.5 [facility] BUN/CREAT 17 8 - 27 [facility] al Protein [Mass/volume] in Serum or Plasma 6.9 G/DL 6.3 - 8.2 [facility] Albumin [Mass/volume] in Serum or Plasma 4.5 G/DL 3.9 - 5.0 [facility] Globulin [Mass/volume] in Serum by calculation 2.4 GM/DL 2.4 - 3.2 [facility] A/G RATIO 1.9 0.8 - 2.0 [facility] Calcium [Mass/volume] in Serum or Plasma 9.5 MG/DL 8.4 - 10.2 [facility] Bilirubin.total [Mass/volume] in Serum or Plasma <0.7 MG/DL 0.2 - 1.3 [facility] Alkaline phosphatase [Enzymatic activity/volume] in Serum or Plasma 94 U/L 38 - 126 [facility] Aspartate aminotransferase [Enzymatic activity/volume] in Serum or Plasma 22 U/L 5 - 40 [facility] Alanine aminotransferase [Enzymatic activity/volume] in Seru m or Plasma 27 U/L 7 - 56 [facility] Anion gap 3 in Serum or Plasma 9.0 mmol/L 8.0 - 16.0 [facility] AGE 65 yrs [facility] al NON-AA GFR >60 mL/min [facility]osp ital AFR AMER GFR >60 mL/min [facility] Ho spital Male GFR In terprentation 20-49 yrs >60 mL/min Normal 50-59 yrs >56 mL/min Normal 60-69 yrs >49 mL/min Normal 70-79yrs >42 mL/min Normal 80 and above >35 mL/min Normal Female GFR Interpretation 20-39 yrs >60 mL/min Normal 40-49 yrs >58 mL/min Normal 50-59 yrs >51 mL/min Normal 60-69 yrs >45 mL/min Normal 70-79 yrs >39 mL/min Normal 80 and above >32 mL/min Normal ID Date Data Source [id number] 12/31/2020 07:51:00 AM EDT [facility] Name Value Range Interpretation Code Description Data Greta rce(s) Supporting Document(s) Creatine kinase [Enzymatic activity/volume] in Serum or Plasma 1 02 U/L 30 - 170 [facility] ID Date Data Source [id number] 12/31/2020 07:51:00 AM T [facility] Value Range Interpretation Code Description Data Greta rce(s) Supporting Document(s) Urate [Mass/volume] in Serum or Plasma 4.0 MG/DL 2.5 - 8.5 [facility] ID Date Data Source [id number] 12/31/2020 07:32:00 AM [facility] Value Range Interpretation Code Description Data Greta rce(s) Supporting Document(s) CBC W/MANUAL DIFF [facility] COMPLETE BLOOD COUNT Leukocytes [#/volume] in Blood by Automated count 6.8 10^3/uL 4.2 - 1 1.0 [facility] Erythrocytes [#/volume] in Blood by Automated count 4.22 10^6/uL 4. 50 - 6.30 L [facility] Hemoglobin [Mass/volume] in Blood 13.1 g/dL 14.0 - 16.0 L [facility] Hematocrit [Volume Fraction] of Blood by Automated count 38.4 % 4 1.0 - 51.0 L [facility] Erythrocyte mean corpuscular volume [Entitic volume] by Auto mated count 91.0 fL 80.0 - 94.0 [facility] Erythrocyte mean corpuscular hemoglobin [Entitic mass] by Automated count 31.0 pg 27.0 - 34.0 [facility] Erythrocyte mean corpuscular hemoglobin concentration [Mass/volume] by Automated count 34.1 g/dL 31.0 - 36.0 [facility] Erythrocyte distribution width [Ratio] by Automated count 13.8 % 11.5 - 14.8 [facility] Platelets [#/volume] in Blood by Automated count 337 10^3/uL 150 - 45 0 [facility] Platelet mean volume [Entitic volume] in Blood by Automated count 8.5 fL 7.4 - 10.4 [facility] Neutrophils/100 leukocytes in Blood by Automated count 69.9 % 37. 0 - 80.0 [facility] Lymphocytes/100 leukocytes in Blood by Manual count 10.9 % 25.0 - 40.0 L [facility] Monocytes/100 leukocytes in Blood by Automated count 11.1 % 3.0 - 8.0 H [facility] Eosinophils/100 leukocytes in Blood by Automated count 6.8 % 0.0 - 7.0 [facility] Basophils/100 leukocytes in Blood by Automated count 0.7 % 0.0 - 2.0 [facility] %IG 0.6 % 0.0 - 0.0 [facility] 0.0 % 0.0 - 0.0 [facility] al Neutrophils [#/volume] in Blood by Automated count 4.72 10^3/uL 2.00 - 6.90 [facility] Lymphocytes [#/volume] in Blood by Automated count 0.74 10^3/uL 0.60 - 3.40 [facility] Monocytes [#/volume] in Blood by Automated count 0.75 10^3/uL 0.00 - 0.90 [facility] Eosinophils [#/volume] in Blood by Automated count 0.46 10^3/uL 0.00 - 0.70 [facility] Basophils [#/volume] in Blood by Automated count 0.05 10^3/uL 0.00 - 0.20 [facility] #IG 0.04 10^3/uL 0.00 - 0.10 [facility] #NRBC 0.00 10^3/uL 0.00 - 0.00 [facility] MANUAL DIFF SEE BELOW [facility] Segmented neutrophils/100 leukocytes in Blood by Manual count 64 % 37 - 80 [facility] %LYMPH 16 % 25 - 40 [facility] %MONO 14 % 3 - 8 [facility] %EOS 6 % 0 - 7 [facility] RBC MORPH NOT INDICATED [facility] ID Date Data Source [id number] 10/10/2020 09:19:49 PM [facility] Name Value Range Interpretation Code Description Data Greta rce(s) Supporting Document(s) Progress Note [facility] FMQVOy2tBoICJaFi25/AOTwgLEVpr5MyDAqhKIl6QTcjFTDlG4EnCNC8vX5rBZU4VQdVKmSkUeCvItA4 [facility] [file] DQplbmRvYmoNCnhyZWYNCjAgMjkNCjAwMDAwMDAwMD WgJbZ2UsUfTj6FWRIeXPJfERVvFxPsOCZqAPAuNSozDPXaSVMaKXYcPDXoKLQuNL4FQvFaMFIvUHR0YO BeJLAuHBEznt2DRZOjVVCjQBY2OfMiCBSiDTUyMNssOTQyBVD4GTL0PQTfTFFyMG4DTfWkKLHkXPKkLd XvHMClQXOhdn0GFRLtJZPjBsd3UFAcLGImUXGfIOxd HWLdONW8WHqkWJUzZHFtDN7UWhFlSYRmBMQaMpHzIYPmZOBbqw4EIDFnHSX8YYF3AVPzABWrPDNyWTtn HVYrOZA7YJHoLWHbQAUgFC0GHoRsNLYtYRe5RRAxCVHtNQDfdv0ASNGsZWMaFth2QLXuCDTjFXStSQli CKXaEID4AHYjPYHhIRXnPK6NMmHdONMwUQrzEKadAG YsGEFaid5CLYTnLYLdCLA2CKQpYNMcQPDeVIecTELtHLSmFeFtQVOxTZTwQU5ZQcNqVNBfOJO1JDCoVP DzUDFfgd2IBLXoGYBlLBJ4PELaTCUlWFEoPVkaQHKiLNOwDkY2FUGjAPBzNP3UAtXkTEIbPEM8GVgiTV LtCZAuid3FSXKaDGI3CfI6DjPgTAViROAxZNclYQYg ACZlHIC4LUMgUAKpBX1LKpZkBMYmPWTgQBJdZRGhIRVjhr3DPQMcAUC0OcNyTwCeUNBiDJHnJXcmKGCq NBD5UJFgOYRvEFKeGX3RTzUvCWFiZXEgDiIkTBBvSLHvbd6DMMVlHQD0DVYxJZQmASGgXQMmDXg6baAk uKVeXIf4JI4IA7CucfPoFuoNZn9Qd025PIN5IPYnWa 1NN3qbUc9hMAZgBOAQEq9ORRd4INt5OpZsDKE0XuEwAkRxIqR8XTvcFTS6ROG7IriuZJI+IDxhNzZiNW BqGsX7ZqH2AyXbZYNhDJClSiW3KUWaDQYwCH9lWQGVJk5+TZvsaFFewBqyDZIMIbH5LSzdMXwiRGWXPa 0K ID Date Data Source [id number] 09/26/2020 06:57:00 AM EST [place] ([facility]) Name Value Range Interpretation Code Description Data Greta rce(s) Supporting Document(s) Reported Physicians See Note Reported Physici ans [place] ([facility]) Note: Reported Physicians:Ordering: ROMÁN GEORGE MAtmendezding: ROMÁN KEANEConsulting: Evangelist MCELROY To: Román Keane ID Date Data Source [id number] 09/26/2020 06:57:00 AM EST [place] ([facility]) Name Value Range Interpretation Code Description Data Greta rce(s) Supporting Document(s) AFR AMER GFR >60 mL/min AFR AMER GFR [place] ([facility]) Note: Responsible Observer: () Egg donor age 65 yrs AGE [place] ([facility]) Note: Responsible Observer: () Anion gap in Body fluid 10.0 mmol/L ANION GAP [place] ([facility]) Note: Responsible Observer: () Basic metabolic panel - Blood See Note BASIC METABOLIC PANEL [place] ([facility]) Note: BASIC METABOLIC PANELResponsib le Observer: () BUN 27 MG/DL Above high normal BUN [place] ([facility]) Note: Responsible Observer: () BUN/CREAT 23 BUN/CREAT [place] ([facility]) Note: Responsible Observer: () Calcium [Moles/volume] in Urine collected for unspecified durati on 9.4 MG/DL CALCIUM [place] ([facility]) Note: Responsible Observer: () Chloride [Moles/volume] in Serum, Plasma or Blood 103 mEq/L CHLORIDE [place] ([facility]) Note: Responsible Observer: () CO2 31 MEQ/L Above high normal CO2 [place] ([facility]) Note: Responsible Observer: () Creatinine [Moles/volume] in Vitreous fluid 1.2 MG/DL CREATININE [place] ([facility]) Note: Responsible Observer: () Glucose [Mass/volume] in Urine collected for unspecified duratio n 110 MG/DL Above high normal GLUCOSE [place] ([facility]) Note: Responsible Observer: () NON-AA GFR >60 mL/min NON-AA GFR [place] ([facility]) Note: Male GFR Interprentation 20-49 yrs >60 mL/min Normal 50-59 yrs >56 mL/min Normal 60-69 yrs >49 mL/min Normal 70-79yrs >42 mL/min Normal 80 and above >35 mL/min Normal Female GFR Interpretation 20-39 yrs >60 mL/min Normal 40-49 yrs >58 mL/min Normal 50- 59 yrs >51 mL/min Normal 60-69 yrs >45 mL/min Normal 70-79 yrs >39 mL/min Normal 80 and above >32 mL/min NormalResponsible Observer: () Potassium [Mass/volume] in Blood 4.0 mEq/L POT ASSIUM [place] ([facility]) Note: Responsible Observer: () Sodium [Moles/volume] in Serum, Plasma or Blood 144 mEq/L SODIUM [place] ([facility]) Note: Responsible Observer: () ID Date Data Source [id number] 09/26/2020 06:57:00 AM [facility]) Name Value Range Interpretation Code Description Data Greta rce(s) Supporting Document(s) Reported Physicians See Note Reported Physici ans [place] ([facility]) Note: Reported Physicians:Ordering: ROMÁN GEORGE MAttending: ROMÁN KEANEConsulting: Evangelist MCELROY To: Román Keane ID Date Data Source [id number] 09/26/2020 06:57:00 AM [facility] ([facility]) Name Value Range Interpretation Code Description Data Greta rce(s) Supporting Document(s) PSA 0.51 ng/mL PSA [facility]) Note: BLDoPSA INTERP RETATIONBLDx The PSA assay should not be used alone for a screening test or diagnosis for presence or absence of malignant disease. Predictions of disease recurrence should not be based solely on values obtained from serial patient serum values. The PSA result was determined by "[employer]", on the Luana MARLENE 6000. Values obtained with different assay methods or kits cannot be used interchangeably.Responsible Observer: (GEORGE) ID Date Data Source [id number] 09/26/2020 10:20:[address] [facility] Name Value Range Interpretation Code Description Data Greta rce(s) Supporting Document(s) BASIC METABOLIC PANEL [facility] BASIC METABOLIC PANEL Sodium [Moles/volume] in Serum or Plasma 144 mEq/L 134 - 153 [facility] Potassium [Moles/volume] in Serum or Plasma 4.0 mEq/L 3.6 - 5.0 [facility] Chloride [Moles/volume] in Serum or Plasma 103 mEq/L 98 - 107 [facility] Carbon dioxide, total [Moles/volume] in Serum or Plasma 31 MEQ/L 22 - 30 H [facility] Glucose [Mass/volume] in Serum or Plasma 110 MG/DL 70 - 99 H [facility] BUN 27 MG/DL 7 - 21 [facility] Creatinine [Mass/volume] in Serum or Plasma 1.2 MG/DL 0.7 - 1.5 [facility] BUN/CREAT 23 8 - 27 [facility] al Calcium [Mass/volume] in Serum or Plasma 9.4 MG/DL 8.4 - 10.2 [facility] Anion gap 3 in Serum or Plasma 10.0 mmol/L 8.0 - 16.0 [facility] AGE 65 yrs [facility] al AFR AMER GFR >60 mL/min [facility] Ho spital NON-AA GFR >60 mL/min [facility] ital Male GFR Inter prentation 20-49 yrs >60 mL/min Normal 50-59 yrs >56 mL/min Normal 60-69 yrs >49 mL/min Normal 70-79yrs >42 mL/min Normal 80 and above >35 mL/min Normal Female GFR Interpretation 20-39 yrs >60 mL/min Normal 40-49 yrs >58 mL/min Normal 50-59 yrs >51 mL/min Normal 60-69 yrs >45 mL/min Normal 70-79 yrs >39 mL/min Normal 80 and above >32 mL/min Normal ID Date Data Source [id number] 09/26/2020 09:54:00 AM EST [facility] Name Value Range Interpretation Code Description Data Greta rce(s) Supporting Document(s) Prostate specific Ag [Mass/volume] in Serum or Plasma 0.51 ng/mL 0.00 - 4.00 [facility] \\BLDo\\PSA INTERPRETA TION\\BLDx\\ The PSA assay should not be used alone for a screening test or diagnosis for presence or absence of malignant disease. Predictions of disease recurrence should not be based solely on values obtained from serial patient serum values. The PSA result was determined by "[employer]", on the Luana MARLENE 6000. Values obtained with different assay methods or kits cannot be used interchangeably. ID Date Data Source URIC ACID 09/24/2020 12:00:00 AM EST eCW1 ([facility]) Name Value Range Interpretation Code Description Data Greta rce(s) Supporting Document(s) 5.8 3.5-7.2 URIC ACID eCW1 ([facility]) ID Date Data Source Comprehensive Metabolic Profile (CMP) 09/24/2020 12:00:00 AM EST eCW1 ([facility]) Name Value Range Interpretation Code Description Data Greta rce(s) Supporting Document(s) 21 7-18 BLOOD UREA NITROGEN eCW1 ([facility]) 127 70-100 GLUCOSE, FASTING eCW1 ([facility]) 4.2 3.5-5.1 POTASSIUM SERUM eCW1 ([facility]) 1.18 0.70-1.30 CREATININE FOR GFR eCW1 ([facility]) > 60.0 >49 GLOMERULAR FILTRATION RATE eCW 1 ([facility]) 140 136-145 SODIUM LEVEL eCW1 ([facility]) 32 21-32 CARBON DIOXIDE LEVEL eCW1 ([facility]) 13 7-37 AST/SGOT eCW1 ([facility]) 9.8 8.8-10.2 CALCIUM LEVEL eCW1 ([facility]) 103 98-107 CHLORIDE LEVEL eCW1 ([facility]) 7.1 6.4-8.2 TOTAL PROTEIN eCW1 ([facility]) 36 12-78 ALT/SGPT eCW1 ([facility]) 84 45-117 ALKALINE PHOSPHATASE eCW1 ([facility]) 0.3 0.2-1.0 BILIRUBIN,TOTAL eCW1 ([facility]) 1.2 ALBUMIN/GLOBULIN RATIO eCW1 ([facility]) 3.9 3.2-5.2 ALBUMIN eCW1 ([facility]) ID Date Data Source [id number] 08/28/2020 06:37:00 AM EST [place] ([facility]) Name Value Range Interpretation Code Description Data Greta rce(s) Supporting Document(s) Reported Physicians See Note Reported Normani karlo [place] ([facility]) Note: Reported Physicians:Ordering: Ephraim Victor AAttending: EPHRAIM NIXConsulting: HOMERO MCELROYCopy To: Ephraim Nix ID Date Data Source [id number] 08/28/2020 06:37:00 AM EST [place] ([facility]) Name Value Range Interpretation Code Description Data Greta rce(s) Supporting Document(s) CPK 177 U/L Above high normal CPK [place] ([facility]) Note: Responsible Observer: () ID Date Data Source [id number] 08/28/2020 06:37:00 AM EST [place] ([facility]) Name Value Range Interpretation Code Description Data Greta rce(s) Supporting Document(s) Reported Physicians See Note Reported Physici ans [place] ([facility]) Note: Reported Physicians:Ordering: Divya Victorcelyn AAttending: DIVYA NIXCELYNConsulting: LILIBETH LAWRENCECopy To: Divya Nixcelyn ID Date Data Source [id number] 08/28/2020 06:37:00 AM EST [place] ([facility]) Name Value Range Interpretation Code Description Data Greta rce(s) Supporting Document(s) URIC ACID 5.8 MG/DL URIC ACID [place] ([facility]) Note: Responsible Observer: () ID Date Data Source [id number] 08/28/2020 06:37:00 AM EST [place] ([facility]) Name Value Range Interpretation Code Description Data Greta rce(s) Supporting Document(s) Reported Physicians See Note Reported Physici ans [place] ([facility]) Note: Reported Physicians:Ordering: Jorge A cook Ephraim AAttending: OLE JOCELYNConsulting: LILIBETH LAWRENCECopy To: Divya Nixcelyn ID Date Data Source [id number] 08/28/2020 06:37:00 AM EST [place] ([facility]) Name Value Range Interpretation Code Description Data Greta rce(s) Supporting Document(s) Cholesterol [Moles/volume] in Pericardial fluid 178 MG/DL CHOLESTEROL [place] ([facility]) Note: Responsible Observer: () CVE PANEL See Note CVE PANEL [place] ([facility]) Note: LIPID PANELResponsible Observe r: () HDL 58 MG/DL HDL [place] ([facility]) Note: Responsible Observer: () Cholesterol in LDL [Mass/volume] in Serum or Plasma by Direct as say 106 mg/dL LDL [place] ([facility]) Note: Responsible Observer: () LDL/HDL 1.83 LDL/HDL [place] ([facility]) Note: CVE RISK CHOL/HD L LDL/HDLMEN: 1/2 AVERAGE 3.43 1.00 AVERAGE 4.97 3.55 2X AVERAGE 9.55 6.25 3X AVERAGE 23.99 7.99WOMEN: 1/2 AVERAGE 3.27 1.47 AVERAGE 4.44 3.22 2X AVERAGE 7.05 5.03 3X AVERAGE 11.04 6.14Responsible Observer: () RISK FACTOR 3.1 Below low normal RISK FACTOR [facility]) Note: Responsible Observer: () TRIGLYCERIDES 121 MG/DL TRIGLYCERIDES [place] ([facility]) Note: Responsible Observer: () ID Date Data Source [id number] 08/28/2020 06:37:00 AM EST [place] ([facility]) Name Value Range Interpretation Code Description Data Greta rce(s) Supporting Document(s) Reported Physicians See Note Reported Physici ans [place] ([facility]) Note: Reported Physicians:Ordering: Ephraim Victor AAttending: EPHRAIM NIXConsulting: Evangelist MCELROY To: Ephraim Nix ID Date Data Source [id number] 08/28/2020 06:37:00 AM EST [place] ([facility]) Name Value Range Interpretation Code Description Data Greta rce(s) Supporting Document(s) Albumin [Mass/volume] in Blood by Bromocresol purple ( BCP) dye binding method 4.4 G/DL ALBUMIN [place] ([facility]) Note: Responsible Observer: () ALKALINE PHOS 82 U/L ALKALINE PHOS [place] ([facility]) Note: Responsible Observer: () DIRECT BILI <0.2 MG/DL DIRECT BILI [place] ([facility]) Note: Responsible Observer: () Globulin [Mass/time] in 24 hour Urine 1.7 GM/DL Below low normal GLOBULIN [place] ([facility]) Note: Responsible Observer: () INDIRECT BILI 0.3 MG/DL INDIRECT BILI [place] ([facility]) Note: Responsible Observer: () SGOT/AST 19 U/L SGOT/AST [place] ([facility]) Note: Responsible Observer: () SGPT/ALT 28 U/L SGPT/ALT [place] ([facility]) Note: Responsible Observer: () TOTAL BILI <0.7 MG/DL TOTAL BILI [place] ([facility]) Note: Responsible Observer: () TOTAL PROTEIN 6.1 G/DL Below low normal T[facility]OTE[facility] Note: Responsible Observer: () ID Date Data Source [id number] 08/28/2020 06:37:00 AM EST [place] ([facility]) Name Value Range Interpretation Code Description Data Greta rce(s) Supporting Document(s) Reported Physicians See Note Reported Physici ans [place] ([facility]) Note: Reported Physicians:Ordering: Ephraim Victor AAttending: EPHRAIM NIXConsulting: Evangelist MCELROY To: Ephraim Nix ID Date Data Source [id number] 08/28/2020 06:37:00 AM EST [place] ([facility]) Name Value Range Interpretation Code Description Data Greta rce(s) Supporting Document(s) AFR AMER GFR >60 mL/min AFR AMER GFR [place] ([facility]) Note: Responsible Observer: () Egg donor age 65 yrs AGE [place] ([facility]) Note: Responsible Observer: () Anion gap in Body fluid 7.0 mmol/L Below low normal ANION GAP [place] ([facility]) Note: Responsible Observer: DELL) Basic metabolic panel - Blood See Note BASIC METABOLIC PANEL [place] ([facility]) Note: BASIC METABOLIC PANELResponsib le Observer: DELL) BUN 24 MG/DL Above high normal BUN [place] ([facility]) Note: Responsible Observer: () BUN/CREAT 24 BUN/CREAT [place] ([facility]) Note: Responsible Observer: () Calcium [Moles/volume] in Urine collected for unspecified durati on 9.6 MG/DL CALCIUM [place] ([facility]) Note: Responsible Observer: () Chloride [Moles/volume] in Serum, Plasma or Blood 104 mEq/L CHLORIDE [place] ([facility]) Note: Responsible Observer: () CO2 31 MEQ/L Above high normal CO2 [place] ([facility]) Note: Responsible Observer: () Creatinine [Moles/volume] in Vitreous fluid 1.0 MG/DL CREATININE [place] ([facility]) Note: Responsible Observer: () Glucose [Mass/volume] in Urine collected for unspecified duration 9 0 MG/DL GLUCOSE [place] ([facility]) Note: Responsible Observer: () NON-AA GFR >60 mL/min NON-AA GFR [place] ([facility]) Note: Male GFR Interprentation 20-49 yrs >60 mL/min Normal 50-59 yrs >56 mL/min Normal 60-69 yrs >49 mL/min Normal 70-79yrs >42 mL/min Normal 80 and above >35 mL/min Normal Female GFR Interpretation 20-39 yrs >60 mL/min Normal 40-49 yrs >58 mL/min Normal 50- 59 yrs >51 mL/min Normal 60-69 yrs >45 mL/min Normal 70-79 yrs >39 mL/min Normal 80 and above >32 mL/min NormalResponsible Observer: () Potassium [Mass/volume] in Blood 4.3 mEq/L POT ASSIUM [place] ([facility]) Note: Responsible Observer: () Sodium [Moles/volume] in Serum, Plasma or Blood 142 mEq/L SODIUM [place] ([facility]) Note: Responsible Observer: () ID Date Data Source [id number] 08/28/2020 08:29:00 AM EST [facility] Name Value Range Interpretation Code Description Data Greta rce(s) Supporting Document(s) BASIC METABOLIC PANEL [facility] BASIC METABOLIC PANEL Sodium [Moles/volume] in Serum or Plasma 142 mEq/L 134 - 153 [facility] Potassium [Moles/volume] in Serum or Plasma 4.3 mEq/L 3.6 - 5.0 [facility] Chloride [Moles/volume] in Serum or Plasma 104 mEq/L 98 - 107 [facility] Carbon dioxide, total [Moles/volume] in Serum or Plasma 31 MEQ/L 22 - 30 H [facility] Glucose [Mass/volume] in Serum or Plasma 90 MG/DL 65 - 110 [facility] BUN 24 MG/DL 7 - 21 H [facility] al Creatinine [Mass/volume] in Serum or Plasma 1.0 MG/DL 0.7 - 1.5 [facility] BUN/CREAT 24 8 - 27 [facility] Calcium [Mass/volume] in Serum or Plasma 9.6 MG/DL 8.4 - 10.2 [facility] Anion gap 3 in Serum or Plasma 7.0 mmol/L 8.0 - 16.0 L [facility] AGE 65 yrs [facility] al AFR AMER GFR >60 mL/min [facility] Ho spital NON-AA GFR >60 mL/min [facility] ital Male GFR Inter prentation 20-49 yrs >60 mL/min Normal 50-59 yrs >56 mL/min Normal 60-69 yrs >49 mL/min Normal 70-79yrs >42 mL/min Normal 80 and above >35 mL/min Normal Female GFR Interpretation 20-39 yrs >60 mL/min Normal 40-49 yrs >58 mL/min Normal 50-59 yrs >51 mL/min Normal 60-69 yrs >45 mL/min Normal 70-79 yrs >39 mL/min Normal 80 and above >32 mL/min Normal ID Date Data Source [id number] 08/28/2020 08:29:00 AM EST [facility] Name Value Range Interpretation Code Description Data Greta rce(s) Supporting Document(s) Protein [Mass/volume] in Serum or Plasma 6.1 G/DL 6.3 - 8.2 L [facility] Albumin [Mass/volume] in Serum or Plasma 4.4 G/DL 3.9 - 5.0 [facility] Globulin [Mass/volume] in Serum by calculation 1.7 GM/DL 2.4 - 3.2 L [facility] Bilirubin.total [Mass/volume] in Serum or Plasma <0.7 MG/DL 0.2 - 1.3 [facility] Bilirubin.direct [Mass/volume] in Serum or Plasma <0.2 MG/DL 0.1 - 0. 4 [facility] Bilirubin.indirect [Mass/volume] in Serum or Plasma 0.3 MG/DL 0.2 - 1.1 [facility] Aspartate aminotransferase [Enzymatic activity/volume] in Serum or Plasma 19 U/L 5 - 40 [facility] Alanine aminotransferase [Enzymatic activity/volume] in Seru m or Plasma 28 U/L 7 - 56 [facility] Alkaline phosphatase [Enzymatic activity/volume] in Serum or Plasma 82 U/L 38 - 126 [facility] ID Date Data Source [id number] 08/28/2020 08:26:00 AM EST [facility] Name Value Range Interpretation Code Description Data Greta rce(s) Supporting Document(s) Creatine kinase [Enzymatic activity/volume] in Serum or Plasma 1 77 U/L 30 - 170 H [facility] ID Date Data Source [id number] 08/28/2020 08:26:[address] [facility] Name Value Range Interpretation Code Description Data Greta rce(s) Supporting Document(s) CVE PANEL [facility] al LIPID PANEL Cholesterol [Mass/volume] in Serum or Plasma 178 MG/DL 131 - 200 [facility] Deprecated Triglyceride [Mass/volume] in Serum or Plasma 121 MG/DL 3 5 - 160 [facility] HDL 58 MG/DL 29 - 86 [facility] al Cholesterol in LDL [Mass/volume] in Serum or Plasma by Direc t assay 106 mg/dL 65 - 175 [facility] Cholesterol.total/Cholesterol in HDL [Mass Ratio] in Serum o r Plasma 3.1 3.4 - 4.9 L [facility] LDL/HDL 1.83 1.00 - 3.55 [facility] ital CVE RISK CHOL/HDL LDL/HDLMEN: 1/2 AVERAGE 3.43 1.00 AVERAGE 4.97 3.55 2X AVERAGE 9.55 6.25 3X AVERAGE 23.99 7.99WOMEN: 1/2 AVERAGE 3.27 1.47 AVERAGE 4.44 3.22 2X AVERAGE 7.05 5.03 3X AVERAGE 11.04 6.14 ID Date Data Source [id number] 08/28/2020 07:52:00 AM EST [facility] Name Value Range Interpretation Code Description Data Greta rce(s) Supporting Document(s) Urate [Mass/volume] in Serum or Plasma 5.8 MG/DL 2.5 - 8.5 [facility] ID Date Data Source [id number] 08/01/2020 10:15:52 AM EST [facility] Name Value Range Interpretation Code Description Data Greta rce(s) Supporting Document(s) Progress Note [facility] RFMZCx3gFsASKqMo81/CQOxmNDSco3IxFLrvGOj0NDsfPFAwN9XwIJQ8xY7zBBX1NMmEWbTjPuYdVuI9 m [file] HcMFNeHmTgUEAGPUxuWO5EYL0ychT3VA2MnZPwWHEoOCWghUMxOWt3C14vwHKyEWktMO3BNDS+Ruma+Pg 0CQSNtNZRxZBYgRsKdOMYPDzNjW8VdR4TIe7NiG3JfQF04lFmeinZjBKoqMX0SYT8gKGXmZRFZYQ3HmJ AjmR8llgGhThXaSPUDUkZwY63enLSyYACtJSK9UKPx Ss5STKEoF8HvuzAvdVmqvpUsVNFyWUXRUF0JRYamlyVzvGXckCasMD22mLbhNL6WWj4XJfBfHQ8kyn7O wRDzUb9UBKQdSJ3YXXEoDJSbEPZhLQB8QDGdZnVvFDfaHFWtCHBmOCG6RCCoGTVkLW4WIlPtADEeZVG8 ZUNsGHTpPITwcq0NXIEeNRN4MHM5FGPiJZSnBUHaGS wrLWUbXFYkDMM6NRXwAYFeTT1PEnRzVXGhUPU2TJDsQHRuWIXpcw6NNCMcWGMdENB2HwHvZPKpKHOmTE vlPIPvQYI3MUIlPTUsREZbUC5DNkJpQBFmPQP3IVErKNOrRTAlti1DGBTyVJQ9JYl3VtGxCEXmEZXtFJ yuTPKsSAZ5KXF3WTWkENTvMK2RHcAhRINzUUS8FDAa WCYfLBGjlj9WXZYjAVHeRbl5LIJjFXSxHMImTWfgQKCtIYC0CVLcQRZiQUIdUN5QLhKaIKViOSsiGyGl DWSxWJRejl7FEOIrEWYbIVM6CMKuDKEnAOYiFFkeKMNdNVT8Loy6DOVjXFWjPN2MMuEpNLSlWPc2PmUb CFOwGGRhzc0TMLThJGIrMEF6VwOrAFFqNBYxCFfeIN MaMGUwIsczDERjZBYuPC2KGnBwUICnXEK0APRhZEXmVQZjpu3QDFMkYZM2VNC1KXBcHRItUKEwCQhcUH GxQVQcXJV0GASoMGJoOZ4VTaDwRURvNQLhWfWtKKGgXALvdc6CICLfSQO1PkU6SaZmDUSgSPBoQJxyZL JuAIJcXmGtKSPiIBRiTU0GYtYpKWXuTGLdULOwEZJb OQKgbf6GBQWoXTJ4HWB2CQZdWRYaSEBsWFifMDAxTRT4FzN7FDEnRJJcRN7JFrJqKQYzUVTdVbYcXOJf ROZfkn7YuQDjyFwwvu1LUSwDLx2VtOkiKMJfARslQe6nzUVoUIImVBGCWw1WtuXgBQJzAWKBHDhtYWFk KJP6EdN4FHUkG3M6SNBzZYc5DKo4GtQhTbjqNyG4GE h4IrV8IKWnOcz0OBGjRYP2B3L6CsD1TfXjK1X7J4H0WrimQja+UP3hKUh+Ib7Qf5TvalZ3akTaWPf6MB OzLI3QLNQMJ9VRUg== ID Date Data Source [id number] 07/04/2020 06:55:00 AM EST [place] ([facility]) Name Value Range Interpretation Code Description Data Greta rce(s) Supporting Document(s) Reported Physicians See Note Reported Physici ans [place] ([facility]) Note: Reported Physicians:Ordering: ROMÁN GEORGE MAttending: ROMÁN KEANEConsulting: Evangelist MCELROY To: Román Keane ID Date Data Source [id number] 07/04/2020 06:55:00 AM [facility] ([facility]) Name Value Range Interpretation Code Description Data Greta rce(s) Supporting Document(s) PSA 0.17 ng/mL PSA [place] ([facility] Note: BLDoPSA INTERP RETATIONBLDx The PSA assay should not be used alone for a screening test or diagnosis for presence or absence of malignant disease. Predictions of disease recurrence should not be based solely on values obtained from serial patient serum values. The PSA result was determined by "[employer]", on the Lu[employer] MARLENE 6000. Values obtained with different assay methods or kits cannot be used interchangeably.Responsible Observer: (VÍCTOR) ID Date Data Source [id number] 07/04/2020 08:46:[address] [facility] Name Value Range Interpretation Code Description Data Greta rce(s) Supporting Document(s) Prostate specific Ag [Mass/volume] in Serum or Plasma 0.17 ng/mL 0.00 - 4.00 [facility] \\BLDo\\PSA INTERPRETA TION\\BLDx\\ The PSA assay should not be used alone for a screening test or diagnosis for presence or absence of malignant disease. Predictions of disease recurrence should not be based solely on values obtained from serial patient serum values. The PSA result was determined by "[employer]", on the Luana MARLENE 6000. Values obtained with different assay methods or kits cannot be used interchangeably. ID Date Data Source [id number] 07/04/2020 06:54:00 AM [facility] Name Value Range Interpretation Code Description Data Greta rce(s) Supporting Document(s) Reported Physicians See Note Reported Physici ans [place] ([facility]) Note: Reported Physicians:Ordering: Ephraim Victor AAttending: EPHRAIM NIXConsulting: HOMERO MCELROYCopzofia To: Ephraim Nix ID Date Data Source [id number] 07/04/2020 06:54:00 AM [facility] ([facility] Name Value Range Interpretation Code Description Data Greta rce(s) Supporting Document(s) Ferritin [Interpretation] in Blood 234.6 ng/mL FERRITIN [place] ([facility]) Note: Responsible Observer: (VÍCTOR) ID Date Data Source [id number] 07/04/2020 06:54:00 AM EST [place] ([facility]) Name Value Range Interpretation Code Description Data Greta rce(s) Supporting Document(s) Reported Physicians See Note Reported Physici ans [place] ([facility]) Note: Reported Physicians:Ordering: Jules e Ephraim AAttending: DIVYA NIXCELYNConsulting: LILIBETH, LAWRENCECopy To: Ephraim Nix ID Date Data Source [id number] 07/04/2020 06:54:00 AM EST [place] ([facility]) Name Value Range Interpretation Code Description Data Greta rce(s) Supporting Document(s) CCP Antibodies IgG/IgA 4 units CCP Antibodie s IgG/IgA [facility]) Note: Negative <20 Weak positive 20 - 39 Moderate positive 40 - 59 Strong positive >59Responsible Observer: (rfl) ID Date Data Source [id number] 07/04/2020 06:54:00 AM EST [place] ([facility]) Name Value Range Interpretation Code Description Data Greta rce(s) Supporting Document(s) Reported Physicians See Note Reported [facility] ans [place] ([facility]) Note: Reported Physicians:Ordering: Jorge A cook Ephraim AAttending: OLE JOCELYNConsulting: HOMERO MCELROYCopzofia To: Ephraim Nix ID Date Data Source [id number] 07/04/2020 06:54:00 AM EST [place] ([facility]) Name Value Range Interpretation Code Description Data Greta rce(s) Supporting Document(s) Lyme IgG/IgM Ab <0.91 ISR Lyme IgG/IgM Ab [facility] ([facility]) Note: Negative <0.91 Equivocal 0.91 - 1.09 Positive >1.09Responsible Observer: (rfl) Lyme Disease Ab, Quant,IgM <0.80 index Lyme Dis ease Ab, Quant,IgM [facility]) Note: Negative <0.80 Equivocal 0.80 - 1.19 Positive >1.19 IgM levels may peak at 3-6 weeks post infection, then gradually decline.Responsible Observer: (rfl) ID Date Data Source [id number] 07/04/2020 06:54:00 AM EST [place] ([facility]) Name Value Range Interpretation Code Description Data Greta rce(s) Supporting Document(s) Reported Physicians See Note Reported Physici ans [place] ([facility]) Note: Reported Physicians:Ordering: Jules e, Ephraim AAttending: OLE JOCELYNConsulting: HOMERO MCELROYCopy To: Ephraim Nix ID Date Data Source [id number] 07/04/2020 06:54:00 AM [facility] Name Value Range Interpretation Code Description Data Greta rce(s) Supporting Document(s) Anti-DNA (DS) Ab Qn 1 IU/mL Anti-DNA (DS) Ab Qn [place] ([facility]) Note: Negative <5 Equivocal 5 - 9 Positive >9Responsible Observer: (rfl) ID Date Data Source [id number] 07/06/2020 01:00:[address] [facility] Name Value Range Interpretation Code Description Data Greta rce(s) Supporting Document(s) Cyclic citrullinated peptide IgA+IgG Ab [Units/volume] in Serum or Plasma by Immunoassay 4 units 0-19 [facility] Negative <20 Weak positive 20 - 39 Moderate positive 40 - 59 Strong positive >59 ID Date Data Source [id number] 07/06/2020 01:00:[address] [facility] Name Value Range Interpretation Code Description Data Greta rce(s) Supporting Document(s) Nuclear Ab [Titer] in Serum by Immunofluorescence Positive A [facility] Negative <1:80 Borderline 1:80 Positive >1:80 Nuclear Ab pattern.speckled [Titer] in Serum 1:160 H [facility] Note: [facility] positive LUIS result may occur in healt hy individuals (lowtiter) or be associated with a variety of diseases. Seeinterpretation chart which is not all inclusive:Pattern Antigen Detected Suggested Disease Association Homogeneous DNA(ds,ss), SLE - High titers Nucleosomes, Histones Drug-induced SLE Speckled Sm, [employer], SCL-70, SLE,MCTD,PSS (diffuse form), SS-A/SS-B Sjogrens Nucleolar SCL-70, PM-1/SCL High titers Scleroderma, PM/DM Centromere Centromere PSS (limited form) w/Crest syndrome variable Nuclear Dot Sp100,d61-nlftfe Primary Biliary Cirrhosis Nuclear GP210, Primary Biliary CirrhosisMembrane tarah A,B,C ID Date Data Source [id number] 07/05/2020 09:09:00 PM EST [facility] Name Value Range Interpretation Code Description Data Greta rce(s) Supporting Document(s) Borrelia burgdorferi IgG+IgM Ab [Units/volume] in Serum <0.91 ISR 0. 00-0.90 [facility] Negative <0.91 Equivocal 0.91 - 1.09 Positive >1.09 Borrelia burgdorferi IgM Ab [Units/volume] in Serum by Immun oassay <0.80 index 0.00-0.79 [facility] Negative <0.80 Equivocal 0.80 - 1.19 Positive >1.19 IgM levels may peak at 3-6 weeks post infection, then gradually decline. ID Date Data Source [id number] 07/05/2020 03:20:[address] [facility] Name Value Range Interpretation Code Description Data Greta rce(s) Supporting Document(s) DNA double strand Ab [Units/volume] in Serum 1 IU/mL 0-9 [facility] Negative <5 Equivocal 5 - 9 Positive >9 ID Date Data Source [id number] 07/04/2020 09:57:[address] [facility] Name Value Range Interpretation Code Description Data Greta rce(s) Supporting Document(s) Ferritin [Mass/volume] in Serum or Plasma 234.6 ng/mL 5.0 - 244 [facility] ID Date Data Source [id number] 07/04/2020 09:36:[address] [facility] Name Value Range Interpretation Code Description Data Greta rce(s) Supporting Document(s) Urate [Mass/volume] in Serum or Plasma 8.2 MG/DL 2.5 - 8.5 [facility] ID Date Data Source [id number] 07/04/2020 09:36:[address] [facility] Name Value Range Interpretation Code Description Data Greta rce(s) Supporting Document(s) RA QUANT <10 IU/mL 0 - 14 [facility] ID Date Data Source [id number] 07/04/2020 09:36:[address] [facility] Name Value Range Interpretation Code Description Data Greta rce(s) Supporting Document(s) Iron [Mass/volume] in Serum or Plasma 52 UG/DL 42 - 135 [facility] Iron binding capacity.unsaturated [Mass/volume] in Serum or Plasma 221 UG/DL 112 - 347 [facility] Iron binding capacity [Mass/volume] in Serum or Plasma 273 ug/dL 250 - 450 [facility] Iron saturation [Mass Fraction] in Serum or Plasma 19 % [facility] ID Date Data Source [id number] 07/04/2020 06:08:00 AM [place] ([facility] Name Value Range Interpretation Code Description Data Greta rce(s) Supporting Document(s) Reported Physicians See Note Reported Normani karlo [place] ([facility]) Note: Reported Physicians:Ordering: Ephraim Victording: EPHRAIM NIXConsulting: HOMERO MCELROYCopy To: Ephraim Nix ID Date Data Source [id number] 07/04/2020 06:08:00 AM [facility] ([facility]) Name Value Range Interpretation Code Description Data Greta rce(s) Supporting Document(s) Anti-DNA(SS)IgG, Ab, Qn 32 EU Above high normal Anti- DNA(SS)IgG, Ab, Qn [place] ([facility]) Note: Negative: <20 Borderline: 20 - 25 Positive: >25Responsible Observer: (rfl) ID Date Data Source [id number] 07/11/2020 02:45:[address] [facility] Name Value Range Interpretation Code Description Data Greta rce(s) Supporting Document(s) DNA single strand IgG Ab [Units/volume] in Serum by Immunoassay 32 EU 0-19 H [facility] Negative: <20 Borderline: 20 - 25 Positive: >25 ID Date Data Source [id number] 06/22/2020 11:13:00 AM [facility] ([facility]) Name Value Range Interpretation Code Description Data Greta rce(s) Supporting Document(s) Reported Physicians See Note Reported Physici ans [place] ([facility]) Note: Reported Physicians:Ordering: DAVID CACERESAttending: DAVID PAGANConsulting: HOMERO MCELROYCopzofia To: DAVID PAGAN ID Date Data Source [id number] 06/22/2020 11:13:00 AM [facility] ([facility]) Name Value Range Interpretation Code Description Data [facility] rce(s) Supporting Document(s) CRP-HS 82.27 MG/L Above high normal CRP-HS [facility] ([facility]) Note: CDC/S HS-CRP CUT-OFF : RELATIVE RISK: <1.0 mg/L Low 1.0 - 3.0 mg/L Average >3.0 mg/L High Optimally, the average of HS-CRP results repeated two weeks apart should be used for risk assessment.Responsible Observer: (CLD) ID Date Data Source [id number] 06/22/2020 11:13:00 AM EDT [place] ([facility]) Name Value Range Interpretation Code Description Data Greta rce(s) Supporting Document(s) Reported Physicians See Note Reported Physici ans [place] ([facility]) Note: Reported Physicians:Ordering: DAVID CACERESAttending: DAVID PAGANConsulting: Evangelist MCELROY To: DAVID PAGAN ID Date Data Source [id number] 06/22/2020 11:13:00 AM EDT [place] ([facility]) Name Value Range Interpretation Code Description Data Greta rce(s) Supporting Document(s) SED RATE 42 mm/hr Above high normal SED RATE [place] ([facility]) Note: Responsible Observer: (CLD) SED RATE REENTER 42 SED RATE REENTER GREENAngelic AY ([facility]) Note: Responsible Observer: (CLD) ID Date Data Source [id number] 06/22/2020 11:13:00 AM EDT [place] ([facility]) Name Value Range Interpretation Code Description Data Greta rce(s) Supporting Document(s) Reported Physicians See Note Reported Physici ans [place] ([facility]) Note: Reported Physicians:Ordering: DAVID CACERESAttending: DAVID PAGANConsulting: Evangelist MCELROY To: DAVID PAGAN ID Date Data Source [id number] 06/22/2020 11:13:00 AM EDT [place] ([facility]) Name Value Range Interpretation Code Description Data Greta rce(s) Supporting Document(s) #BASO 0.06 10\\^3/uL #BASO [place] ([facility]) Note: Responsible Observer: (CLD) #EOS 0.34 10\\^3/uL #EOS [place] ([facility]) Note: Responsible Observer: (CLD) #IG 0.05 10\\^3/uL #IG [place] ([facility]) Note: Responsible Observer: (CLD) #LYMPH 2.24 10\\^3/uL #LYMPH [place] ([facility]) Note: Responsible Observer: (CLD) #MONO 1.00 10\\^3/uL Above high normal #MONO [place] ([facility]) Note: Responsible Observer: (CLD) #NEUT 7.17 10\\^3/uL Above high normal #NEUT [place] ([facility]) Note: Responsible Observer: (CLD) #NRBC 0.00 10\\^3/uL #NRBC [place] ([facility]) Note: Responsible Observer: (CLD) %IG 0.5 % Above high normal %IG [place] ([facility]) Note: Responsible Observer: (CLD) %NRBC 0.0 % %NRBC [place] ([facility]) Note: Responsible Observer: (CLD) BASO 0.6 % BASO [place] ([facility]) Note: Responsible Observer: (CLD) CBC W/AUTOMATED DIFF See Note CBC W/AUTOMATED DIFF [place] ([facility]) Note: COMPLETE BLOOD COUNTResponsibl e Observer: (CLD) EOS 3.1 % EOS [place] ([facility]) Note: Responsible Observer: (CLD) Hematocrit [Pure volume fraction] of Blood by Automated count 39 .9 % Below low normal HEMATOCRIT [place] ([facility]) Note: Responsible Observer: (CLD) Hemoglobin [Mass/volume] in Mixed venous blood by Oximetry 13.4 g/dL Below low normal HEMOGLOBIN [place] ([facility]) Note: Responsible Observer: (CLD) LYMPH 20.6 % Below low normal LYMPH [place] ([facility]) Note: Responsible Observer: (CLD) MANUAL DIFF NOT INDICATED MANUAL DIFF [place] ([facility]) Note: Responsible Observer: (CLD) MCH 30.0 pg MCH [place] ([facility]) Note: Responsible Observer: (CLD) MCHC 33.6 g/dL MCHC [place] ([facility]) Note: Responsible Observer: (CLD) MCV 89.3 fL MCV [place] ([facility]) Note: Responsible Observer: (CLD) MONO 9.2 % Above high normal MONO [place] ([facility]) Note: Responsible Observer: (CLD) MPV 9.0 fL MPV [place] ([facility]) Note: Responsible Observer: (CLD) NEUT 66.0 % NEUT [place] ([facility]) Note: Responsible Observer: (CLD) Platelets [#/area] in Blood by Microscopy high power field 333 10\\^ 3/uL PLATELETS [place] ([facility]) Note: Responsible Observer: (CLD) RBC 4.47 10\\^6/uL Below low normal RBC [place] ([facility]) Note: Responsible Observer: (CLD) RBC MORPH NOT INDICATED RBC MORPH [place] ([facility]) Note: Responsible Observer: (CLD) RDW 13.5 % RDW [place] ([facility]) Note: Responsible Observer: (CLD) WBC 10.9 10\\^3/uL WBC [place] ([facility]) Note: Responsible Observer: (CLD) ID Date Data Source [id number] 06/22/2020 11:13:00 AM EDT [facility] ([facility]) Name Value Range Interpretation Code Description Data Greta rce(s) Supporting Document(s) C reactive protein [Mass/volume] in Serum or Plasma by High sensitivity method 82.27 mg/L 1.00-3.[address] [facility] ([facility] <content>CDC/S HS-CRP CUT-OFF: RELATIVE RISK:</content>
<content><1.0 mg/L Low</content>
<content>1.0 - 3.0 mg/L Average</lola nt>
<content>>3.0 mg/L High</content>
<content>Optimally, the average of HS-CRP results repeated</content>
<content>two weeks apart should be used for risk assessment.</content>
<content></content> ID Date Data Source [id number] 06/22/2020 11:13:00 AM EDT [facility] ([facility] ) Name Value Range Interpretation Code Description Data Greta rce(s) Supporting Document(s) WBC 10.9 10^3/uL 4.2-11.[address] [facility] ([facility] ) CBC W/Automated Diff Laboratory test result [facility] ([facility] ) COMPLETE BLOOD COUNT RBC 4.47 10^6/uL 4.50-6.30 [facility] ([facility]) Hemoglobin 13.4 g/dL 14.0-16.0 [facility] ([facility]) Hematocrit 39.9 % 41.0-51.0 [facility] ([facility]) MCH 30.0 pg 27.0-34.0 [facility] ([facility]) MCV 89.3 fL 80.0-94.0 [facility] ([facility]) MCHC 33.6 g/dL 31.0-36.0 [facility] ([facility]) RDW 13.5 % 11.5-14.8 [facility] ([facility]) MPV 9.0 fL 7.4-10.4 [facility] ([facility]) Platelets 333 10^3/uL 150-450 [facility] Lymph 20.6 % 25.0-40.0 [facility] ([facility]) Neut 66.0 % 37.0-80.0 [facility] ([facility]) [place] 9.2 % 3.0-8.0 [facility] ([facility]) Eos 3.1 % 0.0-7.0 [facility] ([facility]) Baso 0.6 % 0.0-2.0 [facility] ([facility]) %NRBC 0.0 % 0.0-0.0 [facility] ([facility]) %Ig 0.5 % 0.0-0.0 [facility] ([facility]) #Neut 7.17 10^3/uL 2.00-6.90 [facility] ([facility]) #Lymph 2.24 10^3/uL 0.60-3.40 [facility] ([facility]) #[place] 1.00 10^3/uL 0.00-0.90 [facility] ([facility]) #Eos 0.34 10^3/uL 0.00-0.70 [facility] ([facility]) #Ig 0.05 10^3/uL 0.00-0.10 [facility] ([facility]) #Baso 0.06 10^3/uL 0.00-0.20 [facility] ([facility]) #NRBC 0.00 10^3/uL 0.00-0.00 [facility] ([facility]) Manual Diff Laboratory test result [facility] ([facility]) RBC Morph Laboratory test result [facility] ([facility]) ID Date Data Source [id number] 06/22/2020 11:13:00 AM EDT [facility] ([facility]) Name Value Range Interpretation Code Description Data Greta rce(s) Supporting Document(s) Sed Rate 42 mm/hr 0-20 [facility] PC) Sed Rate Reenter 42 MEDENT ([facility]) ID Date Data Source [id number] 06/22/2020 12:18:00 PM EDT [facility] Name Value Range Interpretation Code Description Data Greta rce(s) Supporting Document(s) C reactive protein [Mass/volume] in Serum or Plasma by High sensitivity method 82.27 MG/L 1.00 - 3.00 H [facility] CDC/S HS-CRP CUT-OFF: RELATIVE RISK: <1.0 mg/L Low 1.0 - 3.0 mg/L Average >3.0 mg/L High Optimally, the average of HS-CRP results repeated two weeks apart should be used for risk assessment. ID Date Data Source [id number] 06/22/2020 11:50:00 AM EDT [facility] Name Value Range Interpretation Code Description Data Greta rce(s) Supporting Document(s) Erythrocyte sedimentation rate by Westergren method 42 mm/hr 0 - 20 H [facility] SED RATE REENTER 42 [facility] ID Date Data Source [id number] 06/22/2020 11:21:00 AM EDT [facility] Name Value Range Interpretation Code Description Data Greta rce(s) Supporting Document(s) CBC W/AUTOMATED DIFF [facility] COMPLETE BLOOD COUNT Leukocytes [#/volume] in Blood by Automated count 10.9 10^3/uL 4.2 - 11.0 [facility] Erythrocytes [#/volume] in Blood by Automated count 4.47 10^6/uL 4. 50 - 6.30 L [facility] Hemoglobin [Mass/volume] in Blood 13.4 g/dL 14.0 - 16.0 L [facility] Hematocrit [Volume Fraction] of Blood by Automated count 39.9 % 4 1.0 - 51.0 L [facility] Erythrocyte mean corpuscular volume [Entitic volume] by Auto mated count 89.3 fL 80.0 - 94.0 [facility] Erythrocyte mean corpuscular hemoglobin [Entitic mass] by Automated count 30.0 pg 27.0 - 34.0 [facility] Erythrocyte mean corpuscular hemoglobin concentration [Mass/volume] by Automated count 33.6 g/dL 31.0 - 36.0 [facility] Erythrocyte distribution width [Ratio] by Automated count 13.5 % 11.5 - 14.8 [facility] Platelets [#/volume] in Blood by Automated count 333 10^3/uL 150 - 45 0 [facility] Platelet mean volume [Entitic volume] in Blood by Automated count 9.0 fL 7.4 - 10.4 [facility] Neutrophils/100 leukocytes in Blood by Automated count 66.0 % 37. 0 - 80.0 [facility] Lymphocytes/100 leukocytes in Blood by Manual count 20.6 % 25.0 - 40.0 L [facility] Monocytes/100 leukocytes in Blood by Automated count 9.2 % 3.0 - 8.0 H [facility] Eosinophils/100 leukocytes in Blood by Automated count 3.1 % 0.0 - 7.0 [facility] Basophils/100 leukocytes in Blood by Automated count 0.6 % 0.0 - 2.0 [facility] %IG 0.5 % 0.0 - 0.0 [facility] 0.0 % 0.0 - 0.0 [facility] al Neutrophils [#/volume] in Blood by Automated count 7.17 10^3/uL 2.00 - 6.90 H [facility] Lymphocytes [#/volume] in Blood by Automated count 2.24 10^3/uL 0.60 - 3.40 [facility] Monocytes [#/volume] in Blood by Automated count 1.00 10^3/uL 0.00 - 0.90 H [facility] Eosinophils [#/volume] in Blood by Automated count 0.34 10^3/uL 0.00 - 0.70 [facility] Basophils [#/volume] in Blood by Automated count 0.06 10^3/uL 0.00 - 0.20 [facility] #IG 0.05 10^3/uL 0.00 - 0.10 [facility] #NRBC 0.00 10^3/uL 0.00 - 0.00 [facility] MANUAL DIFF NOT INDICATED [facility] RBC MORPH NOT INDICATED [facility] ID Date Data Source [id number] 05/28/2020 01:03:00 PM EDT [facility] [address] [place] [address] PHONE: [phone] FAX: [phone] Name .................. : BRITTNY Garay Acct Number.................. : [id number] ROOM. ................. : TR08 Number ................... : [id number] Stay type ............. : E/R Discharge Date......... ... : 05/27/20 Admit Date ......... : 05/27/20 Admit Phys .................... : SABRINA REECE Date of ....... : 1955 Family Phys ................... : LILIBETH LAW Phone . ................. : [phone] Age ................................ : 65 Film# .................. .:[id number] Sex ................................. : M Unsigned transcriptions are preliminary reports and do not represent a medical or legal document CT LOWER EXT LT W/O CONT [id number] COMPLETE:05/27/20 12:32 ISIS [id number] Reason(s): No Contrast: Foot; ? cellulitis CT SCAN OF THE LEFT FOOT WITHOUT CONTRAST ENHANCEMENT: HISTORY: Possible cellulitis. FINDINGS: Your patient does have a screw fixating the fourth metatarsal to the cuboid with another screw fixating the second metatarsal to the second cuneiform. There are arthritic changes in the intertarsal articulations. There is prominent soft tissue subcutaneous edema identified over the dorsum of the foot most notable laterally. This also extends around the lateral border of the foot. This extends up to the level of the ankle. I cannot find any definite osteomyelitis on this examination. Correlation with either 3- phase bone scan or MR is recommended. No focal subcutaneous abscess is seen. IMPRESSION: Two screws still present. No definite signs of osteomyelitis seen b ut follow up 3-phase bone scan or MR is recommended. Soft tissue swelling over the dorsum and lateral aspect of the foot without a soft tissue abscess seen. While performing the above CT examination, radiation dose reduction was accomplished utilizing automated exposure control, adjusting of the mA and kV based on the patient's body size and/or the use of imperative reconstructive techniques. CT dose: 106.4 mGycm Electronically Reviewed and Signed By AARON RICE MD , 05/28/20 13:03, [facility] Transcribe Initials: QUENTIN , Transcribe Date: 05/27/20 16:48, Dictation Date: Page 1 of 2 [facility] [address] [place] [address] PHONE: [phone] FAX: [phone] Name .................. : BRITTNY DAVILA Tanisha Acct Number.................. : [id number] ROOM. ................. : TR-08 Number ................... : [id number] Stay type ............. : E/R Discharge Date......... ... : 05/27/20 Admit Date ......... : 05/27/20 Admit Phys .................... : VENERUS BR Date of ....... : 1955 Family Phys ................... : [employer] LAW Phone .................. : [phone] Age ................................ : 65 Film# .................. .:[id number] Sex ................................. : M Unsigned transcriptions are preliminary reports and do not represent a medical or legal document CT LOWER EXT LT W/O CONT [id number] COMPLETE:05/27/20 12:32 ISIS [id number] Reason(s): No Contrast: Foot; ? cellulitis Copy for: MARYLU HUSAIN via fax Copy for: EMERGENCY DEPT via modem Copy for: 710 MED REC DISCHARGED Page 2 of 2 Name Value Range Interpretation Code Description Data Greta rce(s) Supporting Document(s) ID Date Data Source [id number] 05/28/2020 11:07:00 AM EDT [facility] [address] [place] [address] PHONE: [phone] FAX: [phone] Name .................. : BRITTNY Garay Acct Number.................. : [id number] ROOM. ................. : VT-03 Number ................... : [id number] Stay type ............. : E/R Discharge Date......... ... : 05/25/20 Admit Date ......... : 05/25/20 Admit Phys .................... : VENERUS BR Date of ....... : 1955 Family Phys ................... : LILIBETH LAW Phone .................. : [phone] Age ................................ : 65 Film# .................. .:[id number] Sex ................................. : M Unsigned transcriptions are preliminary reports and do not represent a medical or legal document FOOT COMPLETE-3 OR MORE LT [id number] COMPLETE:05/25/20 19:28 [facility] [id number] Reason(s): L foot, pain, redness and swelling LEFT FOOT X-RAY: FINDINGS: Osteoarthritic changes are noted most marked in the tarsometatarsal joints. The patient is status post fusion of the second and fourth metatarsals to adjacent tarsal joints. Acute fracture, subluxation or focal osseous lesion is not seen. Periosteal reaction is not identified. There is a small calcaneal spur. IMPRESSION: Osteoarthritic changes most marked in the tarsometatarsal joints. Calcaneal spur. Acute osseous or joint space abnormality not seen. Electronically Reviewed and Signed By Saira Aguirre MD , 05/28/20 11:07, [facility] Transcribe Initials: DZ , Transcribe Date: 05/26/20 02:20, Dictation Date: Copy for: RISHI CHRISTIAN Ricky via fax Copy for: EMERGENCY DEPT via modem Copy for: 710 MED REC DISCHARGED Page 1 of 1 Name Value Range Interpretation Code Description Data Greta rce(s) Supporting Document(s) ID Date Data Source [id number] 05/28/2020 11:07:00 AM EDT [facility] [address] [place] [address] PHONE: [phone] FAX: [phone] Name .................. : BRITTNY Garay Acct Number.................. : [id number] ROOM. ................. : VT03 Number ................... : [id number] Stay type ............. : E/R Discharge Date......... ... : 05/25/20 Admit Date ......... : 05/25/20 [facility] Date of ....... : 1955 Family Phys ................... : LILIBETH LAW Phone .................. : [phone] Age ................................ : 65 Film# .................. .:[id number] Sex ................................. : M Unsigned transcriptions are preliminary reports and do not represent a medical or legal document US DOPPLER UNILATERAL VENOUS [id number] COMPLETE:05/25/20 15:33 BAW [id number] Reason(s): Discolored Extremity LEFT LOWER EXTREMITY VENOUS DUPLEX DOPPLER ULTRASOUND: FINDINGS: There is normal compressibility of the deep venous system from the external iliac through the popliteal vein with normal augmentation identified. IMPRESSION: No evidence for any underlying DVT. Electronically Reviewed and Signed By Saira Aguirre MD , 05/28/20 11:07, [facility] Transcribe Initials: QUENTIN , Transcribe Date: 05/26/20 01:42, Dictation Date: Copy for: RISHI García via fax Copy for: EMERGENCY DEPT via [employer]ar Copy for: 710 MED REC DISCHARGED Page 1 of 1 Name Value Range Interpretation Code Description Data Greta rce(s) Supporting Document(s) ID Date Data Source [id number] 05/27/2020 09:49:00 AM EDT [facility] 1 OrderSheet [facility] Emergency Department [address] [place] [address] Phone #: ext- [phone] 05/27/2020 09:36 Patient: GIOVANNI ARCE Sex: M : 1955 Age: 65yWEIGHT:103.3 kg (S)ALLERGIES: No Known Drug AllergyCHIEF COMPLAINT: recheck:, woundDIAGNOSIS: Cellulitis checkLAB ORDERSOrder Description Priority Entered Acknowledged InitialedCBC w Diff STAT 10:25 05/27/2020 10:34 Scottie Gonzales RN P.A.-C;CMP STAT 10:25 05/27/2020 10:34 Scottie Gonzales RN P.A.-C;PT/INR STAT 10:25 05/27/2020 10:34 Scottie Gonzales RN P.A.-C;Sed. Rate STAT 10:25 05/27/2020 10:34 Scottie Gonzales RN P.A.-C;CRP STAT 10:25 05/27/2020 10:34 Scottie Gonzales RN P.A.-C;Uric Acid STAT 12:18 05/27/2020 12:22 Scottie Gonzales RN P.A.-C;DIAGNOSTIC STUDY ORDERSOrder Description Priority Entered Acknowledged InitialedCT LOWER EXT LT STAT 11:52 05/27/2020 11:59 TerryW/O CONT Walt Gonzales RN(Oxygen?(No)) P.A.- C;(IV?(Yes)) Reason for Study: No Contrast: Foot; ? cellulitisMEDICATION/IV/DRIP/FLUID ORDERSOrder Description Priority Entered Acknowledged InitialedIV NS : Bolus 500 10:25 05/27/2020 10:58 Maria InesymL, then 75 mL/hr Walt Gonzales RN 2 OrderSheet [facility] Emergency Department [address] [place] [address] Phone #: ext- [phone] 05/27/2020 09:36 Patient: GIOVANNI ARCE Sex: M : 1955 Age: 65y P.A.-C;Zofran ODT PO 4 10:25 05/27/2020 10:58 Maria Inesymg Walt Gonzales RN P.A.-C;Morphine IVP 2 mg 10:25 05/27/2020 10:59 Scottie(HIGH ALERT Walt Gonzales RNMEDICATION) P.A.-C;Acetaminophen PO 10:25 05/27/2020 10:59 Ohtsr0799 mg Walt Gonzales RN P.A.-C;Clindamycin IVPB 14:21 05/27/2020 14:37 Gwsci996 mg Walt Gonzales RN P.A.-C;GENERAL ORDERSOrder Description Priority Entered Acknowledged InitialedNPO 10:25 05/27/2020 10:34 Scottie Gonzales RN, P.A.-C;Saline Lock 10:05/27/2020 10:34 Scottie Sandoval;[Electronically signed by Scottie Gonzales RN (18:17 05/27/2020)][Electronical ly signed by Walt Valero P.A.-C (21:18 05/27/2020)][Electronically locked by Scottie Gonzales RN (18:17 05/27/2020)] Name Value Range Interpretation Code Description Data Greta rce(s) Supporting Document(s) ID Date Data Source [id number] 05/27/2020 09:49:00 AM EDT [facility] 1 Medication Reconciliation Report [facility] Emergency Department [address] [place] [address] Phone #: ext- [phone] 05/27/2020 09:36 Patient: GIOVANNI ARCE Sex: M : 1955 Age: 65yWeight: 103.3 kgHeight/Length: 72 in.BMI: 30.9ALLERGIES: No Known Drug AllergyThe patient's Home Medications are listed below:CONTINUE TAKING THE FOLLOWING MEDICATIONS: Choesteral med Clindamycin HCl Oral 300 mg, q8h High blood pressure med [facility] [place] Oral (5-325 mg) 1 tablet, prnThe source(s) of the original Home Medication information:Not obtained.The following Medications were given to the patient in the Emergency Department:IV NS IV Fluids bolus 500 mL over 30 minute(s), then 75 mL/hr, administered: 05/27/2020 10:50:00 AMZofran ODT [PO] PO 4 mg, administered: 05/27/2020 10:49:00 AMAcetaminophen [PO] PO 1000 mg, administered: 05/27/2020 10:4 9:00 AMMorphine [IVP] IVP 2 mg, administered: 05/27/2020 10:55:00 AMClindamycin [IVPB] IVPB bolus 0, then 300 mg 100 mL/hr, administered: 05/27/2020 2:37:00 PMThe following Medications were prescribed to the patient:None. Name Value Range Interpretation Code Description Data Greta rce(s) Supporting Document(s) ID Date Data Source [id number] 05/27/2020 09:49:00 AM EDT [facility] 1 Medication Administration Record [facility] Emergency Department [address] [place] [address] Phone #: [phone] 05/27/2020 09:36 Patient: GIOVANNI ARCE Sex: M : 1955 Age: 65yWeight: 103.3 kgHeight/Length: 72 inBMI: 30.9ALLERGIES: No Known Drug Allergy Date/Time Medication Administered Medication OrderedStart IV NS IV NS : Bolus 500 mL, then 7510:50 05/27/2020 Dose: IV Fluids mL/Pieter Gonzales RN Rate: 75 mL/hr over 5 minute(s)---- Bolus: 500 mL over 30 minute(s)Stop Dispensed: 1000 mL bag15:07 05/27/2020 Site: #1 left wristTerry PRACHI GonzalesGiven ZOFRAN ODT [PO] (ONDANSETRON Zofran ODT PO 4 mg10:49 05/27/2020 HCL)Scottie Gonzales RN Dose: 4 mg Tablets POGiven MORPHINE [IVP] Morphine IVP 2 mg (HIGH ALERT10:55 05/27/2020 Dose: 2 mg IVP MEDICATION)Scottie Gonzales RN Site: #1 left wristGiven ACETAMINOPHEN [PO] Acetaminophen PO 1000 mg10:49 05/27/2020 Dose: 1000 mg Tablets RAHEEM Cherytart CLINDAMYCIN [IVPB] Clindamycin IVPB 300 mg14:37 05/27/2020 Dose: 300 mg IVTrina Gonzales RN Rate: 100 mL/hr over 15 yecenia te(s)---- Dispensed: 25 mL bagStop Site: #1 left wrist14:59 05/27/2020Scottie Gonzales RN Name Value Range Interpretation Code Description Data Greta rce(s) Supporting Document(s) ID Date Data Source [id number] 05/27/2020 09:49:00 AM EDT [facility] 1 General Instructions [facility] Emergency Department [address] [place] [address] Phone #: ext- [phone] 05/27/2020 09:36 Patient: GIOVANNI ARCE Sex: M : 1955 Age: 65yResolving cellulitis of the left foot.INSTRUCTIONSApply ice for 10 minutes three times a day for one weeks followed by dry heat 10 minutes three times a dayfor one weeks. Don't apply ice directly to skin, don't use while asleep and don't use high setting on heatingpad. Use crutches for one weeks. Do not work for three days.No dietary restrictions.(Contacted [facility] and they requested that you call their office in the AM and they will see you.Recomm end to utilize OTC Motrin and Tylenol to control inflammation and pain management.Recommend to follow the instructions on the bottle and not to exceed.).Warnings: GENERAL WARNINGS: Return or contact your physician immediately if your conditionworsens or changes unexpectedly, if not improving as expected, or if other problems arise.Your Current Medications: Your current home medications have been reviewed.CONTINUE TAKING THE FOLLOWING MEDICATIONS:Choesteral med*.Clindamycin HCl Oral : 300 mg q8h, Started: 05/25.[facility] [employer] [place]*.[place] Oral : Tablet 5-325 mg, 1 tablet, Started: 05/25, prn.High blood pressure med*.Follow-up:Return to the emergency department as needed. Follow up with your healthcare provider in about twodays if not better. Call for an appointment.Understanding of the discharge instructions verbalized by patient.Follow-up with: [facility], , , [address] [address], ,, [address] Follow up tomorrow. Call for the next available appointment. Reason for referral: evaluation andtreatment. ADDITIONAL INFORMATION 2 General Instructions [facility] Emergency Department [address] [place] [address] Phone #: ext- [phone] 05/27/2020 09:36 Patient: GIOVANNI ARCE Sex: M : 1955 Age: 65yCellulitisCellulitis is an infection of the deep layers of skin. A break in the skin, such as a cut or scratch, can letbacteria under the skin. If the bacteria get to deep layers of the skin, it can be serious. If not treated,cellulitis can get into the bloodstream and lymph nodes. The infection can then spread throughout thebody. This causes serious illness.C ellulitis causes the affected skin to become red, swollen, warm, and sore. The reddened areas havea visible border. An open sore may leak fluid (pus). You may have a fever, chills, and pain.Cellulitis is treated with antibiotics taken for 7 to 10 days. An open sore may be cleaned and coveredwith cool wet gauze. Symptoms should get better 1 to 2 days after treatment is started. Make sure totake all the antibiotics for the full number of days until they are gone. Keep taking the medicine even ifyour symptoms go away.Home careFollow these tips: Limit the use of the part of your body with cellulitis. If the infection is on your leg, keep your leg raised while sitting. This will help to reduce swelling. Take all of the antibiotic medicine exactly as directed until it is gone. Do not miss any doses, especially during the first 7 days. Don't stop taking the medicine when your symptoms get better. Keep the affected area clean and dry. Wash your hands with soap and warm water before and after touching your skin. Anyone else who touches your skin should also wash his or her hands. Don't share towels.Follow-up careFollow up with your healthcare provider, or as advised. If your infection does not go away on the firstantibiotic, your healthcare provider will prescribe a different one.When to seek medical adviceCall your healthcare provider right away if any of these occur: Red areas that spread Swelling or pain that gets worse Fluid leaking from the skin (pus) 3 General Instructions [facility] Emergency Department [address] [place] [address] Phone #: ext- [phone] 05/27/2020 09:36 Patient: GIOVANNI ARCE Sex: M : 1955 Age: 65y Fever higher of 100.4 F (38.0 C) or higher after 2 days on antibiotics [id number] [employer]. [address] [place] [address]. All rights reserved. This information is not intended as asubstitute for professional medical care. Always follow your healthcare professional's instructions. You have been given the following additional information: Cellulitis Skin Infection Do not work for three days.(Electronically signed by Walt Valero P.A.-C 05/27/2020 21:18) Name Value Range Interpretation Code Description Data Greta rce(s) Supporting Document(s) ID Date Data Source [id number] 05/27/2020 09:49:00 AM EDT [facility] 1 Clinical Report - Nurses [facility] Emergency Department [address] [place] [address] Phone #: ext- [phone] 05/27/2020 09:36 Patient: GIOVANNI ARCE Sex: M : 1955 Age: 65yTRIAGEArrived by private vehicle. Historian: patient. ( Pt saw Adelso Blackwell 05/25 and instructed to return today forwound recheck left foot).Acuity: LEVEL 5.Chief Complaint: RECHECK OF WOUND.09:49 05/27/20.Location: left foot. The patient has had redness and swelling. Has had no drainage from wound.Previous treatment: Previously seen two days ago.SEPSIS SCREEN: SIRS Screen negative. Sepsis Screen negative. No suspected or confirmed signs ofinfection present. (09:49 05/27/2020). --09:50 05/27/20 Scottie Gonzales RN09:46 05/27/20. BP: 133/75. MAP: 94. HR: 70. RR: 19. O2 saturation: 100%. Temp: 97.9 F (oral). Painlevel now: 04/02. --09:50 05/27/20 Scottie Gonzales RN.Weight: 103.3 kg stated. Height/Length: 72 inches Per Patient. BMI: 30.9. --09:45 05/27/20 Scottie Gonzales RN.[facility] [place]. --09:51 05/27/20 Scottie Gonzales RN Choesteral med. --09:53 05/27/20 Scottie Gonzales RN High blood pressure med. --09:53 05/27/20 Scottie Gonzales RN [place] Oral (Tablet 5-325 mg) 1 tablet, as needed, started 05/25. --09:53 05/27/20 Scottie Gonzales RN Clindamycin HCl Oral 300 mg, q8h, started 05/25. --09:53 05/27/20 Scottie Gonzales RN.AllergiesNo Known Drug Allergy. --09:51 05/27/20 Scottie Gonzales RN.PROBLEMS:Cellulitis.Hypercholesterolemia.Hypertension. --12:34 05/27/20 Amira Stovall R.N.ADDITIONAL SURGERIES:Left foot surgery.Prostatectomy. --12:34 05/27/20 Amira Stovall R.N.Ssssloz18:49 05/27/20. 2 Clinical Report - Nurses [facility] Emergency Department [address] [place] [address] Phone #: ext- [phone] 05/27/2020 09:36 Patient: GIOVANNI ARCE Sex: M : 1955 Age: 65y PAST MEDICAL HX: Tetanus status: up-to-date. SOCIAL HX: Former smoker. Occasional alcohol use. No drug use. The patient was offered HIV testing but de clined and hepatitis C testing but declined. The patient has not traveled outside the [place] Infectious disease exposure: No infectious disease exposure. SELF HARM ASSESSMENT: Self harm assessment was performed. The patient answered "no" to the question(s) "Have you recently felt down, depressed, or hopeless?", "Do you have thoughts of harming or killing yourself?", "Do you have a plan for harming or killing yourself?", "Have you recently had thoughts about harming or killing others?", "Do you have any dangerous items in your possession?", &q uot;Have you noticed less interest or pleasure in doing things?", "Are you here because you tried to hurt yourself?" and "Have you ever tried to hurt yourself before today?". ABUSE ASSESSMENT: Abuse history: reports abuse. (no). Abuse assessment. No suspicion of abuse. NUTRITIONAL RISK ASSESSMENT: The nutritional risk assessment revealed no deficiencies. FUNCTIONAL ASSESSMENT: Functional assessment: no impairments noted. LEARNING NEEDS ASSESSMENT: The learning needs assessment revealed no barriers. FALL RISK ASSESSMENT: Fall risk assessment completed. No risk factors identified. SKIN INTEGRITY ASSESSMENT: Skin integrity risk assessment completed. No skin integrity risk identified. --09:50 05/27/20 Scottie Gonzales RN. Interventions 09:49 05/27/20. Identification band on kalia ent. To room. --09:50 05/27/20 Scottie Gonzales RN.PHYSICAL STWJLDGYZE29:50 05/27/20. Ambulatory to room.GENERAL / NEURO / PSYCH: Alert. Oriented X 4. Appears in pain.EXTREMITIES: Capillary refill is less than 2 seconds in the extremities.SKIN: Warmth to left foot. Swelling to left foot. --09:50 05/27/20 Scottie Gonzales RN.NURSING PROGRESS NOTES09:51 05/27/20. Two patient identifiers checked. Call light placed in reach. Bed placed in lowestposition. Brakes of bed on. Patient ready for evaluation- chart flagged. --09:51 05/27/20 Scottie Gonzales RN 10:49 05/27/2020 Zofran ODT (Ondansetron HCl) PO Tablets 4 mg given. Allergies verified and confirmed 5 rights. Information reviewed with patient. --10:58 05/27/20 Scottie Gonzales RN 10:49 05/27/2020 Acetaminophen PO Tablets 1000 mg given. Allergies verified and confirmed 5 rights. 3 Clinical Report - Nurses [facility] Emergency Department [address] [place] [address] Phone #: ext- [phone] 05/27/2020 09:36 Patient: GIOVANNI ARCE Sex: M : 1955 Age: 65yInformation reviewed with patient. --10:59 05/27/20 Scottie Gonzales RN10:50 05/27/2020 Site #1 started via IV in the left wrist with an 20g angiocath; one attempt. --10: Scottie Gonzales RN10:50 05/27/2020 Started bag #1 1000 mL IV Fluids IV NS; bolus of 500 mL over 30 minute(s) then at 75mL/hr over 5 minute(s) via site #1 via IV pump. Allergies verified and confirmed 5 rights. IV patencyestablished. IV site checked: no pain, redness, or swelling. IV flushed thoroughly pre- and post-medicationadministration. Information reviewed with patient. --10:58 05/27/20 Scottie Gonzales RN10:55 05/27/2020 Morphine IVP 2 mg given over 30 second(s) via site #1. Allergies verified and confirmed5 rights. IV patency established. IV site checked: no pain, redness, or swelling. IV flushed thoroughly pre-and post-medication administration. IVP given by RN. Information reviewed with patient including sedativewarning. --10:59 05/27/20 Scottie Gonzales RNChecked patient name and birthdate. Blood samples drawn from the right antecubital space by tech.([id number]). --11:00 05/27/20 Scottie Gonzales RN11:40 05/27/2020 IV Fluids IV NS via IV site #1 Rate Changed: bag #1 decreased to 75 mL/hr via IV pump.Confirmed 5 Rights. --12:00 05/27/20 Scottie Gonzales RN12:03 05/27/2020 Zofran ODT PO Response: symptoms have improved the patient feels better. --12: Scottie Gonzales RN12:03 05/27/2020 Acetaminophen PO Response: symptoms are the same. The patient feels the same.Physician healthcare administrative assistant notified. --12:05/27/20 Scottie Gonzales RN12:03 05/27/2020 Morphine IVP Response: symptoms are the same. The patient feels the same. Physicianassistant notified. --12:05/27/20 Scottie Gonzales RN12:00 05/27/20. BP: 104/65. MAP: 78. HR: 57. RR: 18. O2 saturation: 99% on room air. Pain level now:03/02. --12:05/27/20 Errol Ward transported to [place] by wheelchair with area intelligence technician. ([id number]). --12:05/27/20 Scottie Gonzales, RNPatient returned from CT by wheelchair with area intelligence technician. ([id number]). --12:22 05/27/20 Scottie Gonzales RN13:25 05/27/20. BP: 119/65. MAP: 83. HR: 58. RR: 18. O2 saturation: 99% on room air. Pain level now:03/02. --13:25 05/27/20 Scottie Gonzales RN( 1320 pt c/o long wait and advised still waiting on uric acid lab and C T report). --13:26 05/27/20 PRACHI Mustafa14:37 05/27/2020 Started 300 mg of Clindamycin IVPB in bag #1 25 mL; at 100 mL/hr over 15 minute(s) 4 Clinical Report - Nurses [facility] Emergency Department [address] [place] [address] Phone #: ext- [phone] 05/27/2020 09:36 Patient: GIOVANNI ARCE Sex: M : 1955 Age: 65y via site #1. via IV pump. Allergies verified and confirmed 5 rights. IV patency established. IV site checked: no pain, redness, or swelling. IV flushed thoroughly pre- and post-medication administration. Information reviewed with patient. --14:37 05/27/20 Scottie Gonzales RN.DISPOSITION / DISCHARGE 14:59 05/27/2020 Clindamycin IVPB via IV site #1 Discontinued: bag #1 infused. Total amount infused: 25 mL. IV patency established. IV site checked: no pain, redness, or swelling. IV flushed thoroughly. --15:18 05/27/20 Scottie Gonzales RN 15:07 05/27/2020 Site #1 removed upon discharge. Catheter intact. Bandaid applied. --15:17 05/27/20 Scottie Gonzales RN 15:07 05/27/2020 IV Fluids IV NS via IV site #1 Discontinued: bag #1 STOPPED upon discharge. Total amount infused: 732 mL. IV patency established. IV site checked: no pain, redness, or swelling. IV flushed thoroughly. --15:17 05/27/20 Scottie Gonzales RN 15:10 05/27/20. Departure time: 15:10 05/27/2020. Condition at departure: unchanged. No learning barriers present. Discharge instructions provided and reviewed with the patient and spouse. Reviewed medication(s) (no changes). Reviewed crutch walking, rest and ice instructions. Reviewed referral to an orthopedic surgeon. Patient and spouse verbalized understanding. Written instructions provided in Dutch. The patient was discharged by the physician healthcare administrative assistant. He was discharged home and accompanied by spouse. He left ambulatory on crutches and via private vehicle. Spouse driving. --15:17 05/27/20 Scottie Gonzales RN 15:10 05/27/20. BP: 131/83. MAP: 99. HR: 54. RR: 18. O2 saturation: 99% on room air. Temp: 97.5 F (oral). Pain level now: 03/02. --15:20 05/27/20 Scottie Gonzales RN.Locked/Released at 05/27/2020 18:17 by Scottie Gonzales RN Name Value Range Interpretation Code Description Data Greta rce(s) Supporting Document(s) ID Date Data Source [id number] 0001 05/27/2020 09:49:00 AM EDT [facility] 1 Clinical Report - Physicians/Mid Levels [facility] Emergency Department [address] [place] [address] Phone #: ext- [phone] 05/27/2020 09:36 [id number] Sex: M : 1955 Age: 65y Time Seen: 10:14 05/27/2020; initial patient contact, initial documentation. Arrived- By private vehicle. Historian- patient.HISTORY OF PRESENT ILLNESS Chief Complaint: WOUND RECHECK. Treated in emergency department two days ago. Previous emergency department treatment: IV prescription antibiotic given. The patient has experienced pain since the procedure was performed. (65 yo M presents for wound check. 2 days ago seen in ER wiht c/o L foot pain of atraumatic and insidious onset. Had hardware >10yrs ago. Noted swelling and erythema on Thursday and came to ER 2 days ago. XR and US neg. Dc'ed with cellulitis. Give pain meds and abx. Taking. Presents today with improved erythema but worsened/increased edema and TTP.).REVIEW OF SYSTEMSNo fever, numbness, weakness, nausea or vomiting. No chest pain, difficulty breathing or bladderdysfunction. All other systems reviewed and are negative.PAST HISTORYSee nurses notes. Problems: Cellulitis. Hypercholesterolemia. Hypertension. Additional Surgeries: Left foot surgery. Prostatectomy. Medications: Clindamycin HCl Oral 300 mg, q8h, started 05/25. [place] Oral (Tablet 5-325 mg) 1 tablet, as needed, started 05/25. High blood pressure med. Choesteral med. [facility]. Allergies: No Known Drug Allergy.SOCIAL HISTORYFormer smoker. Occasional alcohol use. No drug use. 2 Clinical Report - Physicians/Mid Levels [facility] Emergency Department [address] [place] [address] Phone #: ext- [phone] 05/27/2020 09:36 Patient: GIOVANNI ARCE Sex: M : 1955 Age: 65yADDITIONAL NOTESThe nursing notes have been reviewed.PHYSICAL EXAMVital Signs: 05/27/2020 09:46 BP: 133/75. MAP: 94. HR: 70. RR: 19. O2 saturation: 100%. Temp: 97.9 F.Pain level now: 8/10. Have been reviewed. Oxygen saturation normal.Appearance: Alert. Oriented X3. No acute distress.ENT: Voice normal.CVS: Normal heart rhythm and rate. No JVD present. Pulses normal. Capillary refill normal. Strongperipheral pulses. Heart sounds normal. Pulses: right dorsalis pedis 2+; left dorsalis pedis 2+; rightposterior tibial 2+; left posterior tibial 2+.Respiratory: Chest normal on inspection. No respiratory distress. Unlabored respirations. Lungs clear.Good chest movement. Breath sounds normal and equal.Extremities: Left foot: mild erythema and moderate tenderness and swelling. Neurovascular intact distally.No laceration, abrasion, ecchymosis, puncture wound or foreign body.Neuro: Awake. Alert. Oriented X 3. Mood/affect normal. Speech normal.Psych: Cognition normal. Thought process and content normal. Insight and judgement normal.LABS, X-RAYS, AND EKGLt Foot X-ray: (Celestina lawson Michael - 05/27/2020 12:34:18 PM2 screws still present. No definite signs of osteomyelitis seen but follow-up three-phase bone scan or MR isrecommended. Soft tissue swelling over the dorsum and lateral aspect of the foot without a soft tissueabscess seen). The X-rays were interpreted by the radiologist.Laboratory Tests: Uric Acid: (LOY: 05/27/2020 10:31) ( [facility] 05/27/2020 13:24) Final results Test Result Flag Units (Reference) URIC ACID 8.8 H MG/DL (2.5 - 8.5) CT LOWER EXT LT W/O CONT: (LOY: 05/27/2020 11:52) ( MtgRcvd 05/27/2020 12:33) In Progress CT LOWER EXT LT W/O CONT Reason(s): No Contrast: Foot; ? cellulitis TRANSPORTATION: IV? IV?(Yes) O2? Oxygen?(No) Ro CBC w Diff: (LOY: 05/27/2020 10:31) ( MsgRcvd 05/27/2020 11:37) Final results Test Result Flag Units (Reference) CBC W/AUTOMATED DIFF COMPLETE BLOOD COUNT WBC 8.4 10/uL (4.2 - 11.0) RBC 4.26 L 10/uL (4.50 - 6.30) HEMOGLOBIN 12.6 L g/dL (14.0 - 16.0) HEMATOCRIT 38.1 L % (41.0 - 51.0) MCV 89.4 fL (80.0 - 94.0) MCH 29.6 pg (27.0 - 34.0) MCHC 33.1 g/dL (31.0 - 36.0) RDW 13.4 % (11.5 - 14.8) PLATELETS 341 10/uL (150 - 450) MPV 9.3 fL (7.4 - 10.4) 3 Clinical Report - Physicians/Mid Levels [facility] Emergency Department [address] [place] [address] Phone #: ext- [phone] 05/27/2020 09:36 Patient: GIOVANNI ARCE Sex: M : 1955 Age: 65y NEUT 58.5 % (37.0 - 80.0) LYMPH 22.5 L % (25.0 - 40.0) MONO 12.5 H % (3.0 - 8.0) EOS 5.2 % (0.0 - 7.0) BASO 0.6 % (0.0 - 2.0) %IG 0.7 H % (0.0 - 0.0) %NRBC 0.0 % (0.0 - 0.0) #NEUT 4.93 10/uL (2.00 - 6.90) #LYMPH 1.90 10/uL (0.60 - 3.40) #MONO 1.05 H 10/uL (0.00 - 0.90) #EOS 0.44 10/uL (0.00 - 0.70) #BASO 0.05 10/uL (0.00 - 0.20) #IG 0.06 10/uL (0.00 - 0.10) #NRBC 0.00 10/uL (0.00 - 0.00) MANUAL DIFF SEE BELOW SEGS 62 % (37 - 80) BAND 0 % (0 - 5) %LYMPH 26 % (25 - 40) %MONO 6 % (3 - 8) %EOS 6 % (0 - 7) %BASO 0 % (0 - 2) RBC MORPH NOT INDICATEDCMP: (LOY: 05/27/2020 10:31) ( MsgRcvd 05/27/2020 11:37) Final results Test Result Flag Units (Reference) COMPREHENSIVE METABOLIC PANEL COMPREHENSIVE METABOLIC PANEL SODIUM 139 mEq/L (134 - 153) POTASSIUM 4.4 mEq/L (3.6 - 5.0) CHLORIDE 102 mEq/L (98 - 107) CO2 27 MEQ/L (22 - 30) GLUCOSE 101 MG/DL (65 - 110) BUN 23 H MG/DL (7 - 21) CREATININE 1.1 MG/DL (0.7 - 1.5) BUN/CREAT 21 (8 - 27) TOTAL PROTEIN 6.7 G/DL (6.3 - 8.2) ALBUMIN 4.2 G/DL (3.9 - 5.0) GLOBULIN 2.5 GM/DL (2.4 - 3.2) A/G RATIO 1.7 (0.8 - 2.0) CALCIUM 9.8 MG/DL (8.4 - 10.2) TOTAL BILI <0.7 MG/DL (0.2 - 1.3) ALKALINE PHOS 93 U/L (38 - 126) SGOT/AST 17 U/L (5 - 40) SGPT/ALT 18 U/L (7 - 56) ANION GAP 10.0 mmol/L (8.0 - 16.0) AGE 64 yrs NON- AA GFR >60 mL/min AFR AMER GFR >60 mL/min Male GFR Interprentation 20-49 yrs >60 mL/min Cwdqjz17-08 yrs >56 mL/min Normal 60- 69 yrs >49 mL/min Normal 70-79yrs>42 mL/min Normal 80 and above >35 mL/min Normal Female GFRInterpretation 20-39 yrs >60 mL/min Normal 40-49 yrs >58 mL/minNormal 50-59 yrs >51 mL/min Normal 60-69 yrs >45 mL/min Hbdiez74-48 yrs >39 mL/min Normal 80 and above >32 mL/min NormalPT/INR: (LOY: 05/27/2020 10:31) ( MtgRcvd 05/27/2020 10:57) Final results Test Result Flag Units (Reference) PROTIME 13.1 SECONDS (11.0 - 15.5) 4 Clinical Report - Physicians/Mid Levels [facility] Emergency Department [address] [place] [address] Phone #: ext- [phone] 09:36 Patient: GIOVANNI ARCE Sex: M : 1955 Age: 65y INR 0.98 (0.93 - 1.23) \\BLDo\\INR INTERPRETATION\\BLDx\\ Therapeutic range for Coumadin and related oral anticoagulants. -International Normalized Ratio (INR): 2.0 - 3.0 for Venous Thrombosis, Pulmonary Embolus, Tissue heart valves, Acute [place], Atrial Fibrillation, Valvular heart disease and recurrent Systemic Embolism. -International Normalized Ratio (INR): 2.5 - 3.5 for Mechanical Prosthetic valve. Sed. Rate: (LOY: 05/27/2020 10:31) ( [facility] 05/27/2020 11:58) Final results Test Result Flag Units (Reference) SED RATE 31 H mm/hr (0 - 20) SED RATE REENTER 31 CRP: (LOY: 05/27/2020 10:31) ( MsgRcvd 05/27/2020 11:37) Final results Test Result Flag Units (Reference) CRP-HS 80.13 H MG/L (1.00 - 3.00) CDC/AHS HS-CRP CUT-OFF: RELATIVE RISK: <1.0 mg/L Low 1.0 - 3.0 mg/L Average >3.0 mg/L High Optimally, the average of HS-CRP results repeated two weeks apart should be used for risk assessment..PROGRESS AND PROCEDURESCourse of Care: VSS, NAD, AOx3, interacting well and appropriately, no use of accessory muscle, able tospeak full sentences, stable, non-toxic looking. Enter room and pt lying peacefully in bed in NAD. Patient stable. Denies any new issues, concerns, or complaints PE demos NV itnact b/l UE and LE. Noted edema to the foot; pt indicates that this has gotten worse. Will order labs for further eval and comparison. Reviewed previous: LEFT FOOT X- RAY: FINDINGS: Osteoarthritic changes are noted most marked in the tarsometatarsal joints. The patient is status post fusion of the second and fourth metatarsals to adjacent tarsal joints. Acute fracture, subluxation or focal osseous lesion is not seen. Periosteal reaction is not identified. There is a small calcaneal spur. IMPRESSION: Osteoarthritic changes most marked in the tarsometatarsal joints. Calcaneal spur. Acute osseous or joint space abnormality not seen. 5 Clinical Report - Physicians/Mid [facility] Emergency Department [address] [place] [address] Phone #: ext- [phone] 05/27/2020 09:36 Patient: GIOVANNI ARCE Sex: M : 1955 Age: 65y ///////////////// Reviewed labs. Will order imaging for further eval. Pending results. ? foot patho (acute fx vs improving cellulititis vs other) 12:53 05/27/20. Reviewed imaging results. Reviewed labs. Will contact and consult with [employer]. Called and informed answering service. Pending call back. 13:03 05/27/20. Enter room and patient lying peacefully in bed in NAD. Patient stable. Denies any new issues, concerns, or complaints. Pending call back. Called [employer] to inquire as directed (>30mins). Infomred it was sent out at 1330, thus not 30mins from send out. Will stand by and pending call back. 14:22 05/27/20. Ortho calls back, discuss with Dr. Vega. Informed of labs and imaging. Does not appear gouty, but labs. ? prednisone. She defers prednisone as if healing cellulitits, may make worse; agree. Sts to give dose of IV abx and have them call office in AM and they will see tomorrow in clinic. Also continue wiht non weight bearing and ice and elevation. Agree and will follow reocmmendations. Enter room and patient lying peacefully in bed in NAD. Patient stable. Denies any new issues, concerns, or complaints. Agrees with this paln. Enter room and patient lying peacefully in bed in NAD. Patient stable. Denies any new issues, concerns, or complaints. Discussed results with pt. Discussed tx plan with pt. Discussed and counseled on stable condition. Discussed importance of a f/u with PCP. Discussed return to ER criteria. Answered their questions. Indicates and verbalizes that they understand, agree, and will comply with above. Denies any new questions or concerns. Patient has capacity to understand. Discharge decision based on the following: patient's condition is stable; patient's exam is stable; social support is adequate; transportation is available; follow-up is available. Discussed of OTC Motrin and Tylenol to control inflammation and pain management. Informed to follow directions on bottle that are appropriate for age and/or weight. Disposition: Discharged home in good and improved condition. Condition: good and stable.CLINICAL IMPRESSION Resolving cellulitis of the left foot. 6 Clinical Report - Physicians/Mid Levels [facility] Emergency Department [address] [place] [address] Phone #: ext- [phone] 05/27/2020 09:36 Patient: GIOVANNI ARCE Sex: M : 1955 Age: 65yINSTRUCTIONS Apply ice for 10 minutes three times a day for one weeks followed by dry heat 10 minutes three times a day for one weeks. Don't apply ice directly to skin, don't use while asleep and don't use high setting on heating pad. Use crutches for one weeks. Do not work for three days. No dietary restrictions. (Contacted [facility] and they requested that you call their office in the AM and they will see you. Recommend to utilize OTC Motrin and Tylenol to control inflammation and pain management. Recommend to follow the instructions on the bottle and not to exceed.). Warnings: GENERAL WARNINGS: Return or contact your physician immediately if your condition worsens or changes unexpectedly, if not improving as expected, or if other problems arise. Your Current Medications: Your current home medications have been reviewed. CONTINUE TAKING THE FOLLOWING MEDICATIONS: Choesteral med*. Clindamycin HCl Oral : 300 mg q8h, Started: 05/25. [facility]*. [place] Oral : Tablet 5-325 mg, 1 tablet, Started: 05/25, prn. High blood pressure med*. Follow-up: Return to the emergency department as needed. Follow up with your healthcare provider in about two days if not better. Call for an appointment. Understanding of the discharge instructions verbalized by patient. Follow-up with: [facility], , , [address] [place] [address], [facility] Follow up tomorrow. Call for the next available appointment. Reason for referral: evaluation and treatment.(Electronically signed by Walt Valero P.A.-C 05/27/2020 21:18) 7Clinical Report - Physicians/Mid Levels [facility] Emergency Department [address] [place] [address] Phone #: ext- [phone] 05/27/2020 09:36 Patient: GIOVANNI ARCE Sex: M : 1955 Age: 65y Name Value Range Interpretation Code Description Data Greta rce(s) Supporting Document(s) ID Date Data Source [id number] [facility]2020 10:31[facility] Name Value Range Interpretation Code Description Data Greta rce(s) Supporting Document(s) Reported Physicians See Note [facility] Note: Reported Physicians:Ordering: JUAN WHITEHEADOPHERAttending: VENERUS, BRYANConsulting: LILIBETHHOMEROCopy To: Valero, ChristopherCopy To: VENERUS, AMA ID Date Data Source [id number] 05/27/2020 10:31:00 AM EDT [place] ([facility]) Name Value Range Interpretation Code Description Data [facility] rce(s) Supporting Document(s) INR in Blood by Coagulation assay 0.98 IN [facility] ([facility]) Note: BLDo INR INTERPRETATIONBLDx Therapeutic range for Coumadin and related oral anticoagulants. - International Normalized Ratio (INR): 2.0 - 3.0 for Venous Thrombosis, Pulmonary Embolus, Tissue heart valves, Acute [place], Atrial Fibrillation, Valvular heart disease and recurrent Systemic Embolism. -International Normalized Ratio (INR): 2.5 - 3.5 for Mechanical Prosthetic valve.Responsible Observer: () ALFREDO 13.1 SECONDS PROTIME [place] ([facility]) Note: Responsible Observer: () ID Date Data Source [id number] 05/27/2020 10:31:00 [facility] Name Value Range Interpretation Code Description Data [facility] rce(s) Supporting Document(s) Reported Physicians See Note Reported [facility] ([facility]) Note: Reported Physicians:Ordering: JUAN WHITEHEADOPHERAttending: VENERUS, BRYANConsulting: LILIBETHHOMEROCopy To: Marylu ChristopherCopy To: VENERUS, AMA ID Date Data Source [id number] 05/27/2020 10:31:00 [facility] Name Value Range Interpretation Code Description Data [facility] rce(s) Supporting Document(s) URIC ACID 8.8 MG/DL Above high normal URIC ACID [facility] ([facility]) Note: Responsible Observer: () ID Date Data Source [id number] 05/27/2020 10:31:00 AM EDT [place] ([facility]) Name Value Range Interpretation Code Description Data Greta rce(s) Supporting Document(s) Reported Physicians See Note Reported [facility] ([facility]) Note: Reported Physicians:Ordering: MUEL LER, CHRISTOPHERAttending: VENERUS, BRYANConsulting: LILIBETH, LAWRENCECopy To: Juan ValeroopherCopy To: AMA BENNETT ID Date Data Source [id number] 05/27/2020 10:31:00 AM EDT [place] ([facility]) Name Value Range Interpretation Code Description Data Greta rce(s) Supporting Document(s) SED RATE 31 mm/hr Above high normal SED RATE THUY [place] ([facility]) Note: Responsible Observer: () SED RATE REENTER 31 SED RATE REENTER JAYLAN [facility] ([facility]) Note: Responsible Observer: () ID Date Data Source [id number] 05/27/2020 10:31:00 AM EDT [place] ([facility]) Name Value Range Interpretation Code Description Data Greta rce(s) Supporting Document(s) Reported Physicians See Note Reported [facility] ([facility]) Note: Reported Physicians:Ordering: MUEL LER, CHRISTOPHERAttending: VENERUS, BRYANConsulting: LILIBETH, LAWRENCECopy To: Juan ValeroopherCopy To: AMA BENNETT ID Date Data Source [id number] 05/27/2020 10:31:00 AM EDT [place] ([facility]) Name Value Range Interpretation Code Description Data Greta rce(s) Supporting Document(s) #BASO 0.05 10\\^3/uL #BASO [place] ([facility]) Note: Responsible Observer: () #EOS 0.44 10\\^3/uL #EOS [place] ([facility]) Note: Responsible Observer: DELL) #IG 0.06 10\\^3/uL #IG [place] ([facility]) Note: Responsible Observer: () #LYMPH 1.90 10\\^3/uL #LYMPH [place] ([facility]) Note: Responsible Observer: () #MONO 1.05 10\\^3/uL Above high normal #MONO [place] ([facility]) Note: Responsible Observer: () #NEUT 4.93 10\\^3/uL #NEUT [place] ([facility]) Note: Responsible Observer: () #NRBC 0.00 10\\^3/uL #NRBC [place] ([facility]) Note: Responsible Observer: () %BASO 0 % %BASO [place] ([facility]) Note: Responsible Observer: () %EOS 6 % %EOS [place] ([facility]) Note: Responsible Observer: () %IG 0.7 % Above high normal %IG [place] ([facility]) Note: Responsible Observer: () %LYMPH 26 % %LYMPH [place] ([facility]) Note: Responsible Observer: () %MONO 6 % %MONO [place] ([facility]) Note: Responsible Observer: () %NRBC 0.0 % %NRBC [place] ([facility]) Note: Responsible Observer: () BAND 0 % BAND [place] ([facility]) Note: Responsible Observer: () BASO 0.6 % BASO [place] ([facility]) Note: Responsible Observer: () CBC W/AUTOMATED DIFF See Note CBC W/AUTOMATED DIFF [place] ([facility]) Note: COMPLETE BLOOD COUNTResponsibl e Observer: () EOS 5.2 % EOS [place] ([facility]) Note: Responsible Observer: () Hematocrit [Pure volume fraction] of Blood by Automated count 38 .1 % Below low normal HEMATOCRIT [place] ([facility]) Note: Responsible Observer: () Hemoglobin [Mass/volume] in Mixed venous blood by Oximetry 12.6 g/dL Below low normal HEMOGLOBIN [place] ([facility]) Note: Responsible Observer: () LYMPH 22.5 % Below low normal LYMPH [place] ([facility]) Note: Responsible Observer: () MANUAL DIFF SEE BELOW MANUAL DIFF [place] ([facility]) Note: Responsible Observer: DELL) MCH 29.6 pg MCH [place] ([facility]) Note: Responsible Observer: DELL) MCHC 33.1 g/dL MCHC [place] ([facility]) Note: Responsible Observer: DELL) MCV 89.4 fL MCV [place] ([facility]) Note: Responsible Observer: () MONO 12.5 % Above high normal MONO [place] ([facility]) Note: Responsible Observer: () MPV 9.3 fL MPV [place] ([facility]) Note: Responsible Observer: DELL) NEUT 58.5 % NEUT [place] ([facility]) Note: Responsible Observer: DELL) Platelets [#/area] in Blood by Microscopy high power field 341 10\\^ 3/uL PLATELETS [place] ([facility]) Note: Responsible Observer: EDLL) RBC 4.26 10\\^6/uL Below low normal RBC [place] ([facility]) Note: Responsible Observer: () RBC MORPH NOT INDICATED RBC MORPH [place] ([facility]) Note: Responsible Observer: DELL) RDW 13.4 % RDW [place] ([facility]) Note: Responsible Observer: DELL) SEGS 62 % SEGS [place] ([facility]) Note: Responsible Observer: DELL) WBC 8.4 10\\^3/uL WBC [place] ([facility]) Note: Responsible Observer: DELL) ID Date Data Source [id number] 05/27/2020 10:31:00 AM EDT [place] ([facility]) Name Value Range Interpretation Code Description Data Greta rce(s) Supporting Document(s) Reported Physicians See Note Reported Physici ans [place] ([facility]) Note: Reported Physicians:Ordering: Osei WHITEHEADending: Elva BENNETTulting: Evangelist MCELROY To: Jhoana Valero To: AMA BENNETT ID Date Data Source [id number] 05/27/2020 10:31:00 AM EDT [place] ([facility]) Name Value Range Interpretation Code Description Data Greta rce(s) Supporting Document(s) A/G RATIO 1.7 A/G RATIO [place] ([facility]) Note: Responsible Observer: () AFR AMER GFR >60 mL/min AFR AMER GFR [place] ([facility]) Note: Male GFR Interprentation 20- 49 yrs >60 mL/min Normal 50-59 yrs >56 mL/min Normal 60-69 yrs >49 mL/min Normal 70- 79yrs >42 mL/min Normal 80 and above >35 mL/min Normal Female GFR Interpretation 20-39 yrs >60 mL/min Normal 40-49 yrs >58 mL/min Normal 50-59 yrs >51 mL/min Normal 60-69 yrs >45 mL/min Normal 70-79 yrs >39 mL/min Normal 80 and above >32 mL/min NormalResponsible Observer: () Egg donor age 65 yrs AGE [place] ([facility]) Note: Responsible Observer: () Albumin [Mass/volume] in Blood by Bromocresol purple ( BCP) dye binding method 4.2 G/DL ALBUMIN [place] ([facility]) Note: Responsible Observer: () ALKALINE PHOS 93 U/L ALKALINE PHOS [place] ([facility]) Note: Responsible Observer: () Anion gap in Body fluid 10.0 mmol/L ANION GAP [place] ([facility]) Note: Responsible Observer: () BUN 23 MG/DL Above high normal BUN [place] ([facility]) Note: Responsible Observer: () BUN/CREAT 21 BUN/CREAT [place] ([facility]) Note: Responsible Observer: () Calcium [Moles/volume] in Urine collected for unspecified durati on 9.8 MG/DL CALCIUM [place] ([facility]) Note: Responsible Observer: () Chloride [Moles/volume] in Serum, Plasma or Blood 102 mEq/L CHLORIDE [place] ([facility]) Note: Responsible Observer: () CO2 27 MEQ/L CO2 [place] ([facility]) Note: Responsible Observer: () COMPREHENSIVE METABOLIC PANEL See Note COMPRE HENSIVE METABOLIC PANEL [place] ([facility]) Note: COMPREHENSIVE METABOLIC PANELR esponsible Observer: () Creatinine [Moles/volume] in Vitreous fluid 1.1 MG/DL CREATININE [place] ([facility]) Note: Responsible Observer: DELL) Globulin [Mass/time] in 24 hour Urine 2.5 GM/DL GLOBULIN [place] ([facility]) Note: Responsible Observer: () Glucose [Mass/volume] in Urine collected for unspecified duration 1 01 MG/DL GLUCOSE [place] ([facility]) Note: Responsible Observer: () NON-AA GFR >60 mL/min NON-AA GFR [place] ([facility]) Note: Responsible Observer: () Potassium [Mass/volume] in Blood 4.4 mEq/L POT ASSIUM [place] ([facility]) Note: Responsible Observer: () SGOT/AST 17 U/L SGOT/AST [place] ([facility]) Note: Responsible Observer: () SGPT/ALT 18 U/L SGPT/ALT [place] ([facility]) Note: Responsible Observer: () Sodium [Moles/volume] in Serum, Plasma or Blood 139 mEq/L SODIUM [place] ([facility]) Note: Responsible Observer: () TOTAL BILI <0.7 MG/DL TOTAL BILI [place] ([facility]) Note: Responsible Observer: () TOTAL PROTEIN 6.7 G/DL TOTAL PROTEIN [place] ([facility]) Note: Responsible Observer: () ID Date Data Source [id number] 05/27/2020 10:31:00 AM EDT [place] ([facility]) Name Value Range Interpretation Code Description Data Greta rce(s) Supporting Document(s) Reported Physicians See Note Reported Physici ans [place] ([facility]) Note: Reported Physicians:Ordering: Osei WHITEHEADending: Elva BENNETTulting: Evangelist MCELROY To: Jhoana Valero To: AMA BENNETT ID Date Data Source [id number] 05/27/2020 10:31:00 AM EDT [place] ([facility] Name Value Range Interpretation Code Description Data Greta rce(s) Supporting Document(s) CRP-HS 80.13 MG/L Above high normal CRP-HS [facility] ([facility]) Note: CDC/S HS-CRP CUT-OFF : RELATIVE RISK: <1.0 mg/L Low 1.0 - 3.0 mg/L Average >3.0 mg/L High Optimally, the average of HS-CRP results repeated two weeks apart should be used for risk assessment.Responsible Observer: () ID Date Data Source [id number] 05/27/2020 01:24:00 PM EDT [facility] Name Value Range Interpretation Code Description Data Greta rce(s) Supporting Document(s) Urate [Mass/volume] in Serum or Plasma 8.8 MG/DL 2.5 - 8.5 H [facility] ID Date Data Source [id number] 05/27/2020 11:58:00 AM EDT [facility] Name Value Range Interpretation Code Description Data Greta rce(s) Supporting Document(s) Erythrocyte sedimentation rate by Westergren method 31 mm/hr 0 - 20 H [facility] SED RATE REENTER 31 [facility] ID Date Data Source [id number] 05/27[facility]2020 [facility]37[facility] Name Value Range Interpretation Code Description Data Greta rce(s) Supporting Document(s) C reactive protein [Mass/volume] in Serum or Plasma by High sensitivity method 80.13 MG/L 1.00 - 3.00 H [facility] CDC/S HS-CRP CUT-OFF: RELATIVE RISK: <1.0 mg/L Low 1.0 - 3.0 mg/L Average >3.0 mg/L High Optimally, the average of HS-CRP results repeated two weeks apart should be used for risk assessment. ID Date Data Source [id number] 05/27/2020 11:37:00 AM EDT [facility] Name Value Range Interpretation Code Description Data Greta rce(s) Supporting Document(s) COMPREHENSIVE METABOLIC PANEL [facility] COMPREHENSIVE METABOLIC PANEL Sodium [Moles/volume] in Serum or Plasma 139 mEq/L 134 - 153 [facility] Potassium [Moles/volume] in Serum or Plasma 4.4 mEq/L 3.6 - 5.0 [facility] Chloride [Moles/volume] in Serum or Plasma 102 mEq/L 98 - 107 [facility] Carbon dioxide, total [Moles/volume] in Serum or Plasma 27 MEQ/L 22 - 30 [facility] Glucose [Mass/volume] in Serum or Plasma 101 MG/DL 65 - 110 [facility] BUN 23 MG/DL 7 - 21 [facility] al Creatinine [Mass/volume] in Serum or Plasma 1.1 MG/DL 0.7 - 1.5 [facility] BUN/CREAT 21 8 - 27 [facility] Protein [Mass/volume] in Serum or Plasma 6.7 G/DL 6.3 - 8.2 [facility] Albumin [Mass/volume] in Serum or Plasma 4.2 G/DL 3.9 - 5.0 [facility] Globulin [Mass/volume] in Serum by calculation 2.5 GM/DL 2.4 - 3.2 [facility] A/G RATIO 1.7 0.8 - 2.0 [facility] Calcium [Mass/volume] in Serum or Plasma 9.8 MG/DL 8.4 - 10.2 [facility] Bilirubin.total [Mass/volume] in Serum or Plasma <0.7 MG/DL 0.2 - 1.3 [facility] Alkaline phosphatase [Enzymatic activity/volume] in Serum or Plasma 93 U/L 38 - 126 [facility] Aspartate aminotransferase [Enzymatic activity/volume] in Serum or Plasma 17 U/L 5 - 40 [facility] Alanine aminotransferase [Enzymatic activity/volume] in Seru m or Plasma 18 U/L 7 - 56 [facility] Anion gap 3 in Serum or Plasma 10.0 mmol/L 8.0 - 16.0 [facility] AGE 65 yrs [facility] al NON-AA GFR >60 mL/min [facility] ital AFR AMER GFR >60 mL/min [facility] Ho spital Male GFR In terprentation 20-49 yrs >60 mL/min Normal 50-59 yrs >56 mL/min Normal 60-69 yrs >49 mL/min Normal 70-79yrs >42 mL/min Normal 80 and above >35 mL/min Normal Female GFR Interpretation 20-39 yrs >60 mL/min Normal 40-49 yrs >58 mL/min Normal 50-59 yrs >51 mL/min Normal 60-69 yrs >45 mL/min Normal 70-79 yrs >39 mL/min Normal 80 and above >32 mL/min Normal ID Date Data Source [id number] 05/27/2020 11:37:00 AM EDT [facility] Name Value Range Interpretation Code Description Data Greta rce(s) Supporting Document(s) CBC W/AUTOMATED DIFF [facility] COMPLETE BLOOD COUNT Leukocytes [#/volume] in Blood by Automated count 8.4 10^3/uL 4.2 - 1 1.0 [facility] Erythrocytes [#/volume] in Blood by Automated count 4.26 10^6/uL 4. 50 - 6.30 L [facility] Hemoglobin [Mass/volume] in Blood 12.6 g/dL 14.0 - 16.0 L [facility] Hematocrit [Volume Fraction] of Blood by Automated count 38.1 % 4 1.0 - 51.0 L [facility] Erythrocyte mean corpuscular volume [Entitic volume] by Auto mated count 89.4 fL 80.0 - 94.0 [facility] Erythrocyte mean corpuscular hemoglobin [Entitic mass] by Automated count 29.6 pg 27.0 - 34.0 [facility] Erythrocyte mean corpuscular hemoglobin concentration [Mass/volume] by Automated count 33.1 g/dL 31.0 - 36.0 [facility] Erythrocyte distribution width [Ratio] by Automated count 13.4 % 11.5 - 14.8 [facility] Platelets [#/volume] in Blood by Automated count 341 10^3/uL 150 - 45 0 [facility] Platelet mean volume [Entitic volume] in Blood by Automated count 9.3 fL 7.4 - 10.4 [facility] Neutrophils/100 leukocytes in Blood by Automated count 58.5 % 37. 0 - 80.0 [facility] Lymphocytes/100 leukocytes in Blood by Manual count 22.5 % 25.0 - 40.0 L [facility] Monocytes/100 leukocytes in Blood by Automated count 12.5 % 3.0 - 8.0 H [facility] Eosinophils/100 leukocytes in Blood by Automated count 5.2 % 0.0 - 7.0 [facility] 0.6 %IG 0.7 % 0.0 - 0.0 [facility] 0.0 % 0.0 - 0.0 [facility] al Neutrophils [#/volume] in Blood by Automated count 4.93 10^3/uL 2.00 - 6.90 [facility] Lymphocytes [#/volume] in Blood by Automated count 1.90 10^3/uL 0.60 - 3.40 [facility] Monocytes [#/volume] in Blood by Automated count 1.05 10^3/uL 0.00 - 0.90 H [facility] Eosinophils [#/volume] in Blood by Automated count 0.44 10^3/uL 0.00 - 0.70 [facility] Basophils [#/volume] in Blood by Automated count 0.05 10^3/uL 0.00 - 0.20 [facility] #IG 0.06 10^3/uL 0.00 - 0.10 [facility] #NRBC 0.00 10^3/uL 0.00 - 0.00 [facility] MANUAL DIFF SEE BELOW [facility] ital Segmented neutrophils/100 leukocytes in Blood by Manual count 62 % 37 - 80 [facility] BAND 0 % 0 - 5 [facility] al %LYMPH 26 % 25 - 40 [facility] %MONO 6 % 3 - 8 [facility] %EOS 6 % 0 - 7 [facility] al 0 RBC MORPH NOT INDICATED [facility] Ho spital ID Date Data Source [id number] 05/27/2020 10:57:00 AM EDT [facility] Name Value Range Interpretation Code Description Data Greta rce(s) Supporting Document(s) Prothrombin time (PT) 13.1 SECONDS 11.0 - 15.5 [facility] INR in Platelet poor plasma by Coagulation assay 0.98 0.93 - 1. 23 [facility] \\BLDo\\INR INTERPRETATION\\BLDx\\ Therapeutic range for Coumadin and related oral anticoagulants. - International Normalized Ratio (INR): 2.0 - 3.0 for Venous Thrombosis, Pulmonary Embolus, Tissue heart valves, Acute [place], Atrial Fibrillation, Valvular heart disease and recurrent Systemic Embolism. -International Normalized Ratio (INR): 2.5 - 3.5 for Mechanical Prosthetic valve. ID Date Data Source [id number] 05/25/2020 11:28:00 AM EDT [facility] 1 OrderSheet [facility] Emergency Department [address] [place] [address] Phone #: ext- [phone] 05/25/2020 11:11 Patient: GIOVANNI ARCE Sex: M : 1955 Age: 65yWEIGHT:113.3 kg (S) HEIGHT:72 inches (S) BMI:33.9ALLERGIES: No Known Drug AllergyCHIEF COMPLAINT: pain, Lt, feet, in:DIAGNOSIS: Cellulitis of skinLAB ORDERSOrder Description Priority Entered Acknowledged InitialedBlood Culture STAT 12:05/25/2020 12:25 Veronica,cassidy0m X2 (Sched Anahi MORALES; Maury Perea12:05/25/2020)Blood Culture STAT 12:05/25/2020 12:39 Veronica,q10m X2 (Sched Anahi MORALES; Maury Perae12:10 05/25/2020)CBC w Diff STAT 12:00 05/25/2020 12:25 Anahi Martin; Maury PereaCMP STAT 12:00 05/25/2020 12:25 Anahi Martin; Maury PereaLactic Acid STAT 12:05/25/2020 12:25 Anahi Martin; Maury PereaUrinalysis (Clean STAT 12:00 05/25/2020 12:25 VeronicaCatch) Anahi MORALES; Maury PereaPT/PTT STAT 12:00 05/25/2020 12:25 Anahi Martin; Maury PereaUric Acid STAT 12:22 05/25/2020 12:25 Anahi Martin R.N.DIAGNOSTIC STUDY ORDERSOrder Description Priority Entered Acknowledged InitialedFoot Complete Left STAT 12:00 05/25/2020 12:43 Veronica,(Oxygen?(No)) Anahi Mendiola R.N. Reason for Study: L foot, pain, redness and swellingUS Lower Ext STAT 12:00 05/25/2020 12:43 Veronica,Venous Left Anahi MORALES; Maury Perea(Oxygen?(No)) Reason for Study: Discolored Extremity, Pain, LimbMEDICATION/IV/DRIP/FLUID ORDERSOrder Description Priority Entered Acknowledged Initialed 2 OrderSheet [facility] Emergency Department [address] [place] [address] Phone #: ext- [phone] 05/25/2020 11:11 Patient: GIOVANNI ARCE Sex: M : 1955 Age: 65yRocephin 12:00 05/25/2020 12:24 Veronica,(1gm/50mL) IVPB Anahi Mendiola R.N.1000 mg withDextrose 50 mlspike bag (D5W)Acetaminophen 1 g 12:01 05/25/2020 12:25 VeronicaPO X1 dose: 1000 Anahi Mendiola R.N.mg (NOW x1)Tdap IM 0.5 mL 12:04 05/25/2020 12:26 Anahi Martin R.N.Vicodin (5-325mg) 13:30 05/25/2020 13:34 Veronica,PO 1 tab (HIGH Anahi MORALES; Maury PereaALERTMEDICATION)GENERAL ORDERSOrder Description Priority Entered Acknowledged InitialedSaline Lock 12:01 05/25/2020 12:25 Anahi Martin; Maury Perea[Electronically signed by Maury Martin R.N. (14:22 05/25/2020)][Electronically signed by Anahi Blackwell (15:29 05/25/2020)][Electronically locked by Maury Martin R.N. (14:22 05/25/2020)] Name Value Range Interpretation Code Description Data Greta rce(s) Supporting Document(s) ID Date Data Source [id number] 05/25/2020 11:28:00 AM EDT [facility] 1 Medication Reconciliation Report [facility] Emergency Department [address] [place] [address] Phone #: ext- [phone] 05/25/2020 11:11 Patient: GIOVANNI ARCE Sex: M : 1955 Age: 65yWeight: 113.3 kgHeight/Length: 72 in.BMI: 33.9ALLERGIES: No Known Drug AllergyThe patient's Home Medications are listed below:CONTINUE TAKING THE FOLLOWING MEDICATIONS: [facility] source(s) of the original Home Medication information:patientThe following Medications were given to the patient in the Emergency Department:ROCEPHIN (1GM/50ML) [IVPB] IVPB bolus 0, then 500 mg 100 mL/hr, administered: 05/25/2020 12:24:00PMTylenol [PO] PO 1000 mg, administered: 05/25/2020 12:25:00 PMTDAP [IM] IM 0.5 mL, administered: 05/25/2020 12:26:00 PMVICODIN (5-325MG) [PO] PO 1 tab, administered: 05/25/2020 1:34:00 PMThe following Medications were prescribed to the patient:[place] 5 mg- 325 mg tablet Take 1 tablet every eight hours as needed for pain for 3 days -- Dispense 9tablet. Refills: 0. Substitution permitted.Pharmacy [facility] ; [place], [place] [id number]. .clindamycin HCl 300 mg capsule Take 1 capsule every eight hours for 7 days -- Dispense 21 capsule.Refills: 0. Substitution permitted.[facility] [address] [place], [place] [id number]. . -- CARMEN George Name Value Range Interpretation Code Description Data Greta rce(s) Supporting Document(s) ID Date Data Source [id number] 05/25/2020 11:28:00 AM EDT [facility] 1 Medication Administration Record [facility] Emergency Department [address] [place] [address] Phone #: ext- [phone] 05/25/2020 11:11 Patient: GIOVANNI ARCE Sex: M : 1955 Age: 65yWeight: 113.3 kgHeight/Length: 72 inBMI: 33.9ALLERGIES: No Known Drug Allergy Date/Time Medication Administered Medication OrderedStart ROCEPHIN (1GM/50ML) [IVPB] Rocephin (1gm/50mL) IVPB 495165:24 05/25/2020 (CEFTRIAXONE SODIUM) mg with Dextrose 50 ml spike Maury Waters R.N. Dose: 500 mg IVPB (D5W)---- Rate: 100 mL/hr over 30 minute(s)Stop Dispensed: 50 mL bag12:44 05/25/2020 Site: #1 left Maury Nieto R.N.Given TYLENOL [PO] (APAP) Acetaminophen 1 g PO X1 dose:12:25 05/25/2020 Dose: 1000 mg Tablets PO 1000 mg (NOW x1)Maury Martin R.N.Given TDAP [IM] Tdap IM 0.5 mL12:26 05/25/2020 Dose: 0.5 mL IMGrMaury gordon R.N.Given VICODIN (5-325MG) [PO] Vicodin (5-325mg) PO 1 tab (HIGH13:34 05/25/2020 (ACETAMINOPHEN-HYDROCODONE) ALERT MEDICATION)Maury Martin R.N. Dose: 1 tab Tablets PO Name Value Range Interpretation Code Description Data Greta rce(s) Supporting Document(s) ID Date Data Source [id number] 05/25/2020 11:28:00 AM EDT [facility] 1 General Instructions [facility] Emergency Department [address] [place] [address] Phone #: ext- [phone] 05/25/2020 11:11 Patient: GIOVANNI ARCE Sex: M : 1955 Age: 65yCellulitis of the left foot.INSTRUCTIONSUse crutches until better. No driving or operating machinery while taking sedating medication. Sedativemedication was given during your visit. No strenuous activity until better. No weight bearing left leg forfive until better. Do not work for three days. Rest at home for two days.Do not smoke. No alcohol.Warnings: Further evaluation is necessary. It is very important to follow up with a healthcare provider.GENERAL WARNINGS: Return or contact your physician immediately if your condition worsens orchanges unexpectedly, if not improving as expected, or if other problems arise. Specifically return if pain,vomiting, bleeding, breathing difficulty or fever. increasing redness/swelling.Your Current Medications: Your current home medications have been reviewed.CONTINUE TAKING THE FOLLOWING MEDICATIONS:[facility] [place]*.Prescription Medications:Charleston 5 mg-325 mg tablet Take 1 tablet every eight hours as needed for pain for 3 days -- Dispense 9tablet. Refills: 0. Substitution permitted.Pharmacy - [facility] [address] ; [place], [place] [phone]. .clindamycin HCl 300 mg capsule Take 1 capsule every eight hours for 7 days -- Dispense 21 capsule.Refills: 0. Substitution permitted.[facility] ; [place], [place] [phone]. .Understanding of the discharge instructions verbalized by patient and family. Expected course of illness,discharge instructions, activity level, prescriptions x2, follow-up appointment and risks and benefits oftreatment reviewed with patient and spouse and understanding verbalized. Agrees to plan of care.Follow-up with: EMERGENCY ROOM [facility], , , [address] [place] [address], , , , Follow up in two days even if well and for wound check. Call for the next available appointment. Reasonfor referral: evaluation. Summary of care provided to patient via paper. 2 General Instructions [facility] Emergency Department [address] [place] [address] Phone #: ext- [phone] 05/25/2020 11:11 Patient: GIOVANNI ARCE Sex: M : 1955 Age: 65y ADDITIONAL INFORMATIONCellulitisCellulitis is an infection of the deep layers of skin. A break in the skin, such as a cut or scratch, can letbacteria under the skin. If the bacteria get to deep layers of the skin, it can be serious. If not treated,cellulitis can get into the bloodstream and lymph nodes. The infection can then spread throughout thebody. This causes serious illness.Cellulitis causes the affected skin to become red, swollen, warm, and sore. The reddened areas havea visible border. An open sore m ay leak fluid (pus). You may have a fever, chills, and pain.Cellulitis is treated with antibiotics taken for 7 to 10 days. An open sore may be cleaned and coveredwith cool wet gauze. Symptoms should get better 1 to 2 days after treatment is started. Make sure totake all the antibiotics for the full number of days until they are gone. Keep taking the medicine even ifyour symptoms go away.Home careFollow these tips: Limit the use of the part of your body with cellulitis. If the infection is on your leg, keep your leg raised while sitting. This will help to reduce swelling. Take all of the antibiotic medicine exactly as directed until it is gone. Do not miss any doses, especially during the first 7 days. Don't stop taking the medicine when your symptoms get better. Keep the affected area clean and dry. Wash your hands with soap and warm water before and after touching your skin. Anyone else who touches your skin should also wash his or her hands. Don't share towels.Follow-up careFollow up with your healthcare provider, or as advised. If your infection does not go away on the firstantibiotic, your healthcare provider will prescribe a different one.When to seek medical adviceCall your healthcare provider right away if any of these occur: Red areas that spread Swelling or pain that gets worse 3 General Instructions [facility] Emergency Department [address] [place] [address] Phone #: ext- [phone] 05/25/2020 11:11 Patient: GIOVANNI ARCE Sex: M : 1955 Age: 65y Fluid leaking from the skin (pus) Fever higher of 100.4 F (38.0 C) or higher after 2 days on antibiotics [id number] [employer]. [address] [place] [address]. All rights reserved. This information is not intended as asubstitute for professional medical care. Always follow your healthcare professional's instructions.Crutch WalkingCrutch adjustment Make sure the crutches you use are adjusted to fit you. When you stand,there should be room to fit 2 to 3 fingers between the top of the crutch and your armpit. Your elbowshould be slightly bent when holding the hand manager helpdesk. When your arms hang down, the crutch handleshould be at the top of your hip.Crutch walkingPlace the crutches forward about 1 foot in front of you. The crutches should be a little farther apart 4 General Instructions [facility] Emergency Department [address] [place] [address] Phone #: ext- [phone] 05/25/2020 11:11 Patient: GIOVANNI ARCE Sex: M : 1955 Age: 65ythan your body. Lean your weight forward as you push down on the hand manager helpdesk. Make sure yourweight is on your hands and your strong leg, not your armpits. Let your body swing forward, landingon the strong leg. Move the crutches forward again. The crutch and your injured leg should movetogether.Going up steps with no handrails(Up with the good leg) With both crutches (under each armpit) on the same step as your feet, push down on the hand manager helpdesk. Balancing with very light pressure on the weak leg, let your hands support your weight. Raise your strong leg onto the next higher step. Transfer all your weight to your strong leg (still bent). Move the crutches up to the next step, next to your strong leg. Keep your weight evenly balanced on the two crutches and your strong leg. Straighten your strong knee as you raise your weak leg up to the next step.Going down steps with no handrails(Down with the bad leg) With both crutches (under each armpit) on the same step as your feet, push down on the hand manager helpdesk. Keep your weight evenly balanced on the two crutches and your strong leg. Bend your strong knee as you lower your weak leg down to the next step. Let your strong leg support you (still bent) as you move the crutches down next to the weak leg. Transfer your weight to your hands. Balance with very light pressure on your weak leg as you lower your strong leg next to your weak legGoing up steps with handrails(Up with the good leg) Face the stairs, holding the handrail with one hand. Place both crutches under your armpit on the opposite side. Push down on the hand manager helpdesk. Balancing with very light pressure on the weak l eg, let your hands support your weight. Raise your strong leg onto the next higher step. 5 General Instructions [facility] Emergency Department [address] [place] [address] Phone #: ext- [phone] 05/25/2020 11:11 Patient: GIOVANNI ARCE Sex: M : 1955 Age: 65y Transfer all your weight to your strong leg (still bent) as you move the crutches up (while holding on to the handrail) to the next step next to the strong leg. Keep your weight evenly balanced on the handrail, the crutches (still under the same armpit opposite the handrail), and your strong leg. Straighten your strong knee as you raise the weak leg up to the next step.Going down steps with handrails(Down with the bad leg) Face the stairs, holding the handrail with one hand. Place both crutches under your armpit on the opposite side. Push down on the hand manager helpdesk. Balance your weight evenly on the crutches, handrail, and your strong leg. Then bend your strong knee as you lower the weak leg down to the next step. Let the handrail and your strong leg support you (still bent) as you move the crutches down alongside the weak leg. While holding on to the handrail and crutches (under the same armpit on the other side), transfer your weight to your hands, balancing with very light pressure on the weak leg as you lower your strong leg alongside your weak legTip: If you are worried about falling or you feel unsteady, try sitting when going up or down stairsinstead. Sit on the bottom step and keep your injured leg out in front of you. Hold your crutches flatagainst the stairs. Then slide up to the next step on your bottom. Use your free hand and good leg forsupport. Face the same way when going down stairs. [id number] [employer] [address] [place] [address]86. All rights reserved. This information is not intended as asubstitute for professional medical care. Always follow your healthcare professional's instructions. You have been given the following additional information: Cellulitis Skin Infection Crutch Walking No driving or operating machinery while taking sedating medication. Sedative medication was given during your visit. No strenuous activity until better. No weight bearing left leg for five until better. Do not work for three days. Rest at home for two days. 6 General Instructions [facility] Emergency Department [address] [place] [address] Phone #: ext- [phone] 05/25/2020 11:11 Patient: GIOVANNI ARCE Sex: M : 1955 Age: 65y(Electronically signed by CARMEN George 05/25/2020 15:29) Name Value Range Interpretation Code Description Data Greta rce(s) Supporting Document(s) ID Date Data Source [id number] 05/25/2020 11:28:00 AM EDT [facility] 1 Clinical Report - Nurses [facility] Emergency Department [address] [place] [address] Phone #: ext- [phone] 05/25/2020 11:11 [id number] Sex: M : 1955 Age: 65yTRIAGEArrived by private vehicle. Historian: patient. Accompanied by spouse.Triage time: late entry - 11:18 05/25/2020. Acuity: LEVEL 4.Chief Complaint: LEFT LOWER EXTREMITY PAIN and SWELLING. Location of symptoms- left foot.Alert. No acute distress.No injury occurred. Onset. (3 days ago). ( Pt states no known injury, on Thursday afternon started havingleft foot pain/swelling, redness. Pt has never had diagnosis of gout. 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 Sepsis Screen negative. No suspected or confirmed signs ofinfection present. (11:05/25/2020). --05/25/20 Melida Munoz R.N.11:05/25/20. BP: 136/82. MAP: 100. HR: 72. RR: 18. O2 saturation: 97% on room air. Temp: 97.1 F(oral). Pain level now: 04/02. --11:05/25/20 Melida Munoz R.N.Weight: 113.3 kg stated. Height/Length: 72 inches Per Patient. BMI: 33.9. --11:17 05/25/20 Melida Munoz R.N.[facility] --11:05/25/20 Melida Munoz R.N.AllergiesNo Known Drug Allergy. --11:05/25/20 Melida Munoz R.N.PROBLEMS:Hypertension.Hypercholesterolemia. --11:05/25/20 Melida Munoz R.N.Medication/allergy information source: the patient. --11:05/25/20 Melida Munoz R.N.ADDITIONAL SURGERIES:Left foot surgery.Prostatectomy. --11:23 05/25/20 Melida Munoz R.N.HistoryPAST MEDICAL HX: Tetanus status: up-to-date. Immunizations: up-to-date. 2 Clinical Report - Nurses [facility] Emergency Department [address] [place] [address] Phone #: rcn- [phone] 05/25/2020 11:11 Patient: GIOVANNI ARCE Sex: M : 1955 Age: 65y SOCIAL HX: Former smoker. Occasional alcohol use. No drug use. He was offered HIV testing but declined. Patient education was provided. He was offered hepatitis C testing but declined. Patient education was provided. ( COVID screen negative). He has not traveled outside the [place] Infectious disease exposure: No infectious disease exposure. Patient is not a known carrier of tuberculosis, hepatitis, HIV, MRSA or VRE. Patient is not a known carrier of CRE. SELF HARM ASSESSMENT: Self harm assessment was performed. The patient answered "no" to the question(s) "Do you have thoughts of harming or killing yourself?" and "Do you have a plan for harming or killing yourself?". ABUSE ASSESSMENT: Abuse assessment. The patient had positive responses to the question(s) "Do you feel safe in your home?". Abuse denied. No suspicion of abuse. No report of abuse. NUTRITIONAL RISK ASSESSMENT: The nutritional risk assessment revealed no deficiencies. LEARNING NEEDS ASSESSMENT: The learning needs assessment revealed no barriers. FALL RISK ASSESSMENT: Fall risk assessment completed. No risk factors identified. FUNCTIONAL ASSESSMENT: Functional assessment performed: uses cane- this mobility impairment is an ongoing problem. SKIN INTEGRITY ASSESSMENT: Skin integrity risk assessment compl eted. No skin integrity risk identified. --05/25/20 Melida Munoz R.N. Interventions Identification band on patient. --05/25/20 Melida Munoz R.N.PHYSICAL ASSESSMENTEXTREMITIES: Left foot: swelling of the mid foot. Limited weight bearing secondary to pain. --11: Maury Martin R.N.NURSING PROGRESS NOTES12:05/25/2020 Site #1 started via IV in the left antecubital space with an 20g angiocath; one attempt.Saline lock flushed with 3 mL saline. --12:24 05/25/20 Maury Martin R.N. 12:05/25/2020 Started 500 mg of ROCEPHIN (1GM/50ML) (cefTRIAXone Sodium) IVPB in bag #1 50 mL; at 100 mL/hr over 30 minute(s) via site #1. --12:05/25/20 Maury Martin R.N. 12:05/25/2020 Tylenol (APAP) PO Tablets 1000 mg given. --12:05/25/20 Maury Martin R.N. 12:05/25/2020 TDAP IM 0.5 mL given(Lot#: [id number], expiration date: 04/22/2022, Multicraft Operator: [employer]). --12:05/25/20 Maury Martin R.N. 3 Clinical Report - Nurses [facility] Emergency Department [address] [place] [address] Phone #: ext- [phone] 05/25/2020 11:11 Patient: GIOVANNI ARCE Sex: M : 1955 Age: 65y 12:44 05/25/2020 ROCEPHIN (1GM/50ML) IVPB via IV site #1 Discontinued: bag #1 infused. Total amount infused: 50 mL. --12:44 05/25/20 Maury Martin R.N. Patient transported to radiology and sonogram by wheelchair with tech. --13:02 05/25/20 Maury Martin R.N. 13:34 05/25/2020 VICODIN (5-325MG) (Acetaminophen- HYDROcodone) PO Tablets 1 tab given. --13:34 05/25/20 Maury Martin R.N. Reassessment after medication administered. Pain still present but improving. He is calm and resting quietly. --13:51 05/25/20 Maury Martin R.N. 13:51 05/25/20. BP: 142/66. MAP: 91. HR: 72. RR: 18. O2 saturation: deferred. Temp: deferred. Pain level now: 10/31. --13:51 05/25/20 Maury Martin R.N. Bed placed in lowest position. Brakes of bed on. --14:22 05/25/20 Maury Martin R.N.DISPOSITION / DISCHARGE No learning barriers present. The patient was discharged by the physician healthcare administrative assistant. He was discharged home and accompanied by spouse. He left on crutches and via private vehicle. Patient driving. --14:22 05/25/20 Maury Martin R.N. 14:21 05/25/20. BP: 116/75. MAP: 88. HR: 66. RR: 16. O2 saturation: deferred. Temp: deferred. Pain level now: 10/03. --14:22 05/25/20 Maury Martin R.N. Departure time: 14:22 05/25/2020. --14:22 05/25/20 Maury Martin R.N.Locked/Released at 05/25/2020 14:22 by Maury Martin R.N. Name Value Range Interpretation Code Description Data Greta rce(s) Supporting Document(s) ID Date Data Source [id number] 05/25/2020 11:28:00 AM EDT [facility] 1 Clinical Report - Physicians/Mid Levels [facility] Emergency Department [address] [place] [address] Phone #: ext- [phone] 05/25/2020 11:11 Patient: GIOVANNI ARCE Sex: M : 1955 Age: 65y Time Seen: 11:54 05/25/2020. Arrived- By private vehicle. Historian- patient. Disposition decision: 14:08 05/25/2020.HISTORY OF PRESENT ILLNESS Chief Complaint: LOWER EXTREMITY PAIN and ; PROBLEM IN THE LEFT FOOT. Severity is described as being severe. The quality is noted to be sharp and aching. No radiation. This started about 3 days ago; Increasing pain, redness and swelling to L foot that started about 3 days ago, no known trauma, hx ORIF with hardware L foot years ago per pt. No fever. Not relieved by anything- worsened by standing and walking. Symptoms located in the area of the left foot. The patient has had redness and swelling. He has had difficulty walking. No bladder dysfunction, bowel dysfunction, sensory loss or motor loss. Patient denies an injury. Similar symptoms previously. None. Recent medical care: Not recently seen/assessed.REVIEW OF SYSTEMSNo cough, chest pain, difficulty breathing, fever or skin rash. No enlarged lymph nodes, neck pain, backpain, headache or blurred vision. No sore throat, abdominal pain, vomiting, diarrhea or black stools. Nodifficulty with urination or bloody stools.PAST HISTORYSee nurses notes. Problems: Hypertension. Hypercholesterolemia. Additional Surgeries: Left foot surgery. Prostatectomy. Medications: [facility]. Allergies: No Known Drug Allergy.SOCIAL HISTORYFormer smoker. No alcohol use or drug use. No recent travel.ADDITIONAL NOTES 2 Clinical Report - Physicians/Mid Levels [facility] Emergency Department [address] [place] [address] Phone #: ext- [phone] 05/25/2020 11:11 Patient: GIOVANNI ARCE Sex: M : 1955 Age: 65y The nursing notes have been reviewed with agreement regarding the chief complaint, HPI, ROS, PMH and patient medications and allergies.PHYSICAL EXAMVital Signs: 05/25/2020 11:20 BP: 136/82. MAP: 100. HR: 72. RR: 18. O2 saturation: 97% on room air.Temp: 97.1 F. Pain level now: 8/10. Have been reviewed as normal and appear to be correct. Bloodpressure normal. Mean arterial pressure- normal. Heart rate normal. Respiratory rate normal.Temperature normal. Oxygen saturation normal.Appearance: Alert. Oriented X3. No acute distress.Eyes: Pupils equal, round and reactive to light. Eyes normal inspection.ENT: Ears normal. Nose normal. Pharynx normal.Neck: Normal inspection. Neck supple.CVS: Normal heart rate and rhythm. Heart sounds normal.Respiratory: No respiratory distress. Painless inspiration. Breath sounds normal.Abdomen: Soft and nontender. No organomegaly.Back: Normal inspection. No tenderness. ROM normal.Skin: Skin intact. Skin warm and dry. Normal skin color. Normal skin turgor. Moderate,well-demarcated, erythematous, tender, macular skin rash located on the left foot.Extremities: Left foot: moderate erythema and swelling and severe tenderness of the proximal and distaldorsal medial and lateral aspect of the mid foot. Neurovascular intact distally. No ecchymosis. Lowerextremities exhibit normal ROM. Swelling, warmth, tenderness and erythema present in the left foot.Moderate edema of the left lower extremity. No calf tenderness. Extremities otherwise negative.Gait: Gait not tested due to pain.Neuro: Oriented X 3. No motor deficit. No sensory deficit. Reflexes normal.LABS, X-RAYS, AND EKGLt Foot X-ray: (NAD). Views: 3 view foot series, AP, lateral and oblique. Technique: good. The X-rayswere independently viewed by me and interpreted by the radiologist and contemporaneously by me.Interpretation time: 14:12 05/25/2020.Lower Extremity Sonography: Negative exam on the left side. Study type: utilized duplex sonography.The exam was performed by a aviation technician aircraft. The study was independently viewed by me and interpreted bythe radiologist and contemporaneously by me. Interpretation time: 14:13 05/25/2020.Laboratory Tests: Laboratory tests have been ordered, with results reviewed and considered in themedical decision making process. Uric Acid: (LOY: 05/25/2020 12:09) ( MtgRcvd 05/25/2020 12:46) Final results Test Result Flag Units (Reference) URIC ACID 7.8 MG/DL (2.5 - 8.5) CBC w Diff: (LOY: 05/25/2020 12:09) ( MtgRcvd 05/25/2020 13:00) Final results Test Result Flag Units (Reference) CBC W/AUTOMATED DIFF COMPLETE BLOOD COUNT WBC 12.1 H 10/uL (4 .2 - 11.0) RBC 4.45 L 10/uL (4.50 - 6.30) HEMOGLOBIN 13.2 L g/dL (14.0 - 16.0) 3 Clinical Report - Physicians/Mid Levels [facility] Emergency Department [address] [place] [address] Phone #: ext- [phone] 05/25/2020 11:11 Patient: GIOVANNI ARCE Sex: M : 1955 Age: 65y HEMATOCRIT 39.6 L % (41.0 - 51.0) MCV 89.0 fL (80.0 - 94.0) MCH 29.7 pg (27.0 - 34.0) MCHC 33.3 g/dL (31.0 - 36.0) RDW 13.5 % (11.5 - 14.8) PLATELETS 346 10/uL (150 - 450) MPV 9.2 fL (7.4 - 10.4) NEUT 70.9 % (37.0 - 80.0) LYMPH 15.7 L % (25.0 - 40.0) MONO 9.7 H % (3.0 - 8.0) EOS 2.8 % (0.0 - 7.0) BASO 0.6 % (0.0 - 2.0) %IG 0.3 H % (0.0 - 0.0) %NRBC 0.0 % (0.0 - 0.0) #NEUT 8.58 H 10/uL (2.00 - 6.90) #LYMPH 1.90 10/uL (0.60 - 3.40) #MONO 1.18 H 10/uL (0.00 - 0.90) # EOS 0.34 10/uL (0.00 - 0.70) #BASO 0.07 10/uL (0.00 - 0.20) #IG 0.04 10/uL (0.00 - 0.10) #NRBC 0.00 10/uL (0.00 - 0.00) MANUAL DIFF SEE BELOW SEGS 66 % (37 - 80) %LYMPH 21 L % (25 - 40) %MONO 10 H % (3 - 8) %EOS 3 % (0 - 7) RBC MORPH SEE BELOW { SICKLE CELL (NORMAL: NONE SEEN ) PLT EST NORMAL (NORMAL: ADIEL COMMENT: CMP: (LOY: 05/25/2020 12:09) ( MsgRcvd 05/25/2020 12:44) Final results Test Result Flag Units (Reference) COMPREHENSIVE METABOLIC PANEL COMPREHENSIVE METABOLIC PANEL SODIUM 141 mEq/L (134 - 153) POTASSIUM 4.2 mEq/L (3.6 - 5.0) CHLORIDE 102 mEq/L (98 - 107) CO2 28 MEQ/L (22 - 30) GLUCOSE 104 MG/DL (65 - 110) BUN 16 MG/DL (7 - 21) CREATININE 1.0 MG/DL (0.7 - 1.5) BUN/CREAT 16 (8 - 27) TOTAL PROTEIN 7.5 G/DL (6.3 - 8.2) ALBUMIN 4.4 G/DL (3.9 - 5.0) GLOBULIN 3.1 GM/DL (2.4 - 3.2) A/G RATIO 1.4 (0.8 - 2.0) CALCIUM 9.9 MG/DL (8.4 - 10.2) TOTAL BILI <0.7 MG/DL (0.2 - 1.3) ALKALINE PHOS 101 U/L (38 - 126) SGOT/AST 20 U/L (5 - 40) SGPT/ALT 20 U/L (7 - 56) ANION GAP 11.0 mmol/L (8.0 - 16.0) AGE 65 yrs NON-AA GFR >60 mL/min AFR AMER GFR >60 mL/min 4 Clinical Report - Physicians/Mid Levels [facility] Emergency Department [address] [place] [address] Phone #: ext- [phone] 05/25/2020 11:11 Patient: GIOVANNI ARCE Sex: M : 1955 Age: 65y Male GFR Interprentation 20-49 yrs >60 mL/min Normal 50-59 yrs >56 mL/min Normal 60-69 yrs >49 mL/min Normal 70-79yrs >42 mL/min Normal 80 and above >35 mL/min Normal Female GFR Interpretation 20-39 yrs >60 mL/min Normal 40-49 yrs >58 mL/min Normal 50-59 yrs >51 mL/min Normal 60-69 yrs >45 mL/min Normal 70-79 yrs >39 mL/min Normal 80 and above >32 mL/min Normal Lactic Acid: (LOY: 05/25/2020 12:09) ( [facility] 05/25/2020 12:21) Final results Test Result Flag Units (Reference) LACTIC ACID 1.7 MMOL/L (0.2 - 2.2) Urinalysis: (LOY: 05/25/2020 12:25) ( [facility] 05/25/2020 13:28) Final results Test Result Flag Units (Reference) URINALYSIS URINALYSIS SOURCE R COLOR yellow (NORMAL: [place] CLARITY clear (NORMAL: Clear SPEC GRAVITY 1.010 (1.001 - 1.030 pH 6.5 (5 - 9) GLUCOSE NORM (NORMAL: Negat BILIRUBIN NEG (NORMAL: Negat KETONE NEG (NORMAL: Negat PROTEIN NEG (NORMAL: Negat NITRITE NEG (NORMAL: Negat BLOOD NEG (NORMAL: Negat LEUK EST NEG (NORMAL: Negat UROBILINOGEN NOR (less than 1.0 MICROSCOPIC Not Indicate PT/PTT: (LOY: 05/25/2020 12:09) ( [facility] 05/25/2020 12:32) Final results Test Result Flag Units (Reference) PROTIME 13.0 SECONDS (11.0 - 15.5) INR 0.97 (0.93 - 1.23) PTT 32.0 SECONDS (24.8 - 36.7) \\BLDo\\INR INTERPRETATION\\BLDx\\ Therapeutic range for Coumadin and related oral anticoagulants. -International Normalized Ratio (INR): 2.0 - 3.0 for Venous Thrombosis, Pulmonary Embolus, Tissue heart valves, Acute [place] Atrial Fibrillation, Valvular heart disease and recurrent Systemic Embolism. -International Normalized Ratio (INR): 2.5 - 3.5 for Mechanical Prosthetic valve..PROGRESS AND PROCEDURESDisposition: Discharged home in good and improved condition.Discharge decision based on the following: patient's condition is improved; patient is ambulatory; patient isactive; patient's pain is controlled; patient's exam is improved; minimally abnormal test results; improvingcondition on repeat evaluation; social support is adequate; transportation is available; follow-up isavailable; clinical impression is consistent with outpatient treatment.CLINICAL IMPRESSION 5 Clinical Report - Physicians/Mid Levels [facility] Emergency Department [address] [place] [address] Phone #: ext- [phone] 05/25/2020 11:11 Patient: GIOVANNI ARCE Sex: M : 1955 Age: 65y Cellulitis of the left foot.INSTRUCTIONS Use crutches until better. No driving or operating machinery while taking sedating medication. Sedative medication was given during your visit. No strenuous activity until better. No weight bearing left leg for five until better. Do not work for three days. Rest at home for two days. Do not smoke. No alcohol. Warnings: Further evaluation is necessary. It is very important to follow up with a healthcare provider. GENERAL WARNINGS: Return or contact your physician immediately if your condition worsens or changes unexpectedly, if not improving as expected, or if other problems arise. Specifically return if pain, vomiting, bleeding, breathing difficulty or fever. increasing redness/swelling. Your Current Medications: Your current home medications have been reviewed. CONTINUE TAKING THE FOLLOWING MEDICATIONS: [facility] [place]*. Prescription Medications: [place] 5 mg-325 mg tablet Take 1 tablet every eight hours as needed for pain for 3 days -- Dispense 9 tablet. Refills: 0. Substitution permitted. Pharmacy - [facility] [id number]. . clindamycin HCl 300 mg capsule Take 1 capsule every eight hours for 7 days -- Dispense 21 capsule. Refills: 0. Substitution permitted. [facility] [address] [place], [place] [phone]. . Understanding of the discharge instructions verbalized by patient and family. Expected course of illness, discharge instructions, activity level, prescriptions x2, follow-up appointment and risks and benefits of treatment reviewed with patient and spouse and understanding verbalized. Agrees to plan of care. Follow-up with: [facility], , , [address] [place] [address], , , , Follow up in two days even if well and for wound check. Call for the next available appointment. Reason for referral: evaluation. Summary of care provided to patient via paper.(Electronically signed by CARMEN George 05/25/2020 15:29) 6Clinical Report - Physicians/Mid Levels [facility] Emergency Department [address] [place] [address] Phone #: ext- [phone] 05/25/2020 11:11 Patient: GIOVANNI MEADOWS Sex: M : 1955 Age: 65y Name Value Range Interpretation Code Description Data Greta rce(s) Supporting Document(s) ID Date Data Source [id number] 05/25/2020 12:40:00 PM EDT [place] ([facility]) Name Value Range Interpretation Code Description Data Greta rce(s) Supporting Document(s) Reported Physicians See Note Reported Physici ans [place] ([facility]) Note: Reported Physicians:Ordering: NAAHI GLASERending: Elva BENNETTulting: Evangelist MCELROY To: Isrrael Blackwell To: AMA BENNETT ID Date Data Source [id number] 05/25/2020 12:40:00 PM EDT [place] ([facility]) Name Value Range Interpretation Code Description Data Greta rce(s) Supporting Document(s) CULTURE BLOOD See Note CULTURE BLOOD [place] ([facility]) Note: _CULTURE BLOOD_{ PRE EDWARDS TEST PERFORMED AT [place] [id number] CLIA# [id number] SEE SCANNED REPORTResponsible Observer: (CM) ID Date Data Source [id number] 06/03/2020 09:23:00 AM EDT [facility] Name Value Range Interpretation Code Description Data Greta rce(s) Supporting Document(s) CULTURE BLOOD [facility] _CULTURE BLOOD_{ PRELIM TEST PERFORMED AT [address] [address] CLIA# [id number] SEE SCANNED REPORT ID Date Data Source [id number] 05/25/2020 12:25:00 PM EDT [place] ([facility]) Name Value Range Interpretation Code Description Data Greta rce(s) Supporting Document(s) Reported Physicians See Note Reported Physici ans [place] ([facility]) Note: Reported Physicians:Ordering: ANAHI GLASERending: Elva BENNETTulting: Evangelist MCELROY To: Isrrael Blackwell To: AMA BENNETT ID Date Data Source [id number] 05/25/2020 12:25:00 PM EDT [place] ([facility]) Name Value Range Interpretation Code Description Data Greta rce(s) Supporting Document(s) Bilirubin [Presence] in Peritoneal fluid NEG BILIRUBIN [place] ([facility]) Note: Responsible Observer: (TAD) Blood [Presence] in Urine by Visual NEG BLOOD [place] ([facility]) Note: Responsible Observer: (TAD) Clarity of Pleural fluid from Fetus clear CLARITY [place] ([facility]) Note: Responsible Observer: (TAD) Color of Exudate from wound yellow COLOR [place] ([facility]) Note: Responsible Observer: (TAD) KETONE NEG KETONE [place] ([facility]) Note: Responsible Observer: (TAD) Glucose [Mass/volume] in Urine collected for unspecified duration N ORM GLUCOSE [place] ([facility]) Note: Responsible Observer: (TAD) LEUK EST NEG LEUK EST [place] ([facility]) Note: Responsible Observer: (TAD) MICROSCOPIC Not Indicate MICROSCOPIC [place] ([facility]) Note: Responsible Observer: (VÍCTOR) Nitrite [Presence] in Urine by Test strip NEG NITRITE [place] ([facility]) Note: Responsible Observer: (VÍCTOR) pH of Vaginal fluid by Test strip 6.5 pH [place] ([facility]) Note: Responsible Observer: (VÍCTOR) Protein [Mass/volume] in Saliva (oral fluid) NEG PROTEIN [place] ([facility]) Note: Responsible Observer: (VÍCTOR) SPEC GRAVITY 1.010 SPEC GRAVITY [place] ([facility]) Note: Responsible Observer: (VÍCTOR) Urobilinogen [Presence] in Urine by Automated test strip NOR UROBILINOGEN [place] ([facility]) Note: Responsible Observer: (VÍCTOR) SOURCE R SOURCE [place] ([facility]) Note: Responsible Observer: (VÍCTOR) URINALYSIS See Note URINALYSIS [place] ([facility]) Note: URINALYSISResponsible Observer : (VÍCTOR) ID Date Data Source [id number] 05/25/2020 01:28:00 PM EDT [facility] Name Value Range Interpretation Code Description Data Greta rce(s) Supporting Document(s) URINALYSIS [facility]inda URINALYSIS SOURCE R [facility] COLOR yellow NORMAL: Yellow [facility] CLARITY clear NORMAL: Clear [facility] Specific gravity of Urine by Test strip 1.010 1.001 - 1.030 [facility] 6.5 5 - [facility] Gl[facility] [Mass/volume] in Urine by Test strip NORM NORMAL: Negat [facility] Bilirubin.total [Presence] in Urine by Test strip NEG NORMAL: Negative [facility] Ketones [Presence] in Urine by Test strip NEG NORMAL: Negative [facility] Protein [Mass/volume] in Urine by Test strip NEG NORMAL: Negat [facility] Nitrite [Presence] in Urine by Test strip NEG NORMAL: Negative [facility] BLOOD NEG NORMAL: Negative [facility] Leukocyte esterase [Presence] in Urine by Test strip NEG ADIEL L: Negative [facility] Urobilinogen [Mass/volume] in Urine by Test strip NOR less clarisa n 1.0 mg/dL [facility] MICROSCOPIC Not Indicate [facility] ID Date Data Source [id number] 05/30/2020 06:38:00 PM EDT [facility] [id number] Name Value Range Interpretation Code Description Data Greta rce(s) Supporting Document(s) Bacteria identified in Blood by Culture [facility] NO GROWTH AFTER 5 DAYS ID Date Data Source [id number] 05/25/2020 12:09:00 PM EDT [place] ([facility]) Name Value Range Interpretation Code Description Data Greta rce(s) Supporting Document(s) Reported Physicians See Note Reported Physici ans [place] ([facility]) Note: Reported Physicians:Ordering: ANAHI GLASERending: CAS BENNETTonsulting: Evangelist MCELROY To: Anahi BlackwellCopy To: STERLINGRUS, AMA ID Date Data Source [id number] 05/25/2020 12:09:00 PM EDT [place] ([facility]) Name Value Range Interpretation Code Description Data Greta rce(s) Supporting Document(s) LACTIC ACID 1.7 MMOL/L LACTIC ACID [place] ([facility]) Note: Responsible Observer: (CLD) ID Date Data Source [id number] 05/25/2020 12:09:00 PM EDT [place] ([facility]) Name Value Range Interpretation Code Description Data Greta rce(s) Supporting Document(s) Reported Physicians See Note Reported Physici ans [place] ([facility]) Note: Reported Physicians:Ordering: ANAHI LGASERttending: CAS BENNETTonsulting: HOMERO MCELROYCopy To: Rishi GeorgeCopy To: STERLINGRUS, AMA ID Date Data Source [id number] 05/25/2020 12:09:00 PM EDT [place] ([facility]) Name Value Range Interpretation Code Description Data Greta rce(s) Supporting Document(s) URIC ACID 7.8 MG/DL URIC ACID [place] ([facility]) Note: Responsible Observer: (LMW) ID Date Data Source [id number] 05/25/2020 12:09:00 PM EDT [place] ([facility]) Name Value Range Interpretation Code Description Data Greta rce(s) Supporting Document(s) Reported Physicians See Note Reported Physici ans [place] ([facility]) Note: Reported Physicians:Ordering: ANAHI GLASERttending: VENERUS, BRYANConsulting: LILIBETH, LAWRENCECopy To: Rishi, GeorgeCopy To: VENERUS, AMA ID Date Data Source [id number] 05/25/2020 12:09:00 PM EDT [place] ([facility]) Name Value Range Interpretation Code Description Data Greta rce(s) Supporting Document(s) INR in Blood by Coagulation assay 0.97 IN R [place] ([facility]) Note: Responsible Observer: (TAD) PTT 32.0 SECONDS PTT [place] ([facility]) Note: BLDo INR INTERPRETATIONBLDx Therapeutic range for Coumadin and related oral anticoagulants. - International Normalized Ratio (INR): 2.0 - 3.0 for Venous Thrombosis, Pulmonary Embolus, Tissue heart valves, Acute [place] Atrial Fibrillation, Valvular heart disease and recurrent Systemic Embolism. - International Normalized Ratio (INR): 2.5 - 3.5 for Mechanical Prosthetic valve.Responsible Observer: (TAD) PROTIME 13.0 SECONDS PROTIME [place] ([facility]) Note: Responsible Observer: (TAD) ID Date Data Source [id number] 05/25/2020 12:09:00 PM EDT [place] ([facility]) Name Value Range Interpretation Code Description Data Greta rce(s) Supporting Document(s) Reported Physicians See Note Reported Physic ans [place] ([facility]) Note: Reported Physicians:Ordering: ANAHI GLASERttending: STERLINGRUS, BRYANConsulting: LILIBETH, LAWRENCECopy To: Rishi, GeorgeCopy To: VENERUS, AMA ID Date Data Source [id number] 05/25/2020 12:09:00 PM EDT [place] ([facility]) Name Value Range Interpretation Code Description Data Greta rce(s) Supporting Document(s) CULTURE BLOOD See Note CULTURE BLOOD [place] ([facility]) Note: _CULTURE BLOOD_{ PRE EDWARDS TEST PERFORMED AT [address] [address] [facility]# [id number] SEE SCANNED REPORTResponsible Observer: (CM) ID Date Data Source [id number] 05/25/2020 12:09:00 PM EDT [place] ([facility]) Name Value Range Interpretation Code Description Data Greta rce(s) Supporting Document(s) Reported Physicians See Note Reported Physici ans [place] ([facility]) Note: Reported Physicians:Ordering: ANAHI GLASERending: CAS BENNETTonsulting: HOMERO MCELROYCopzofia To: Anahi BlackwellCopzofia To: AMA BENNETT ID Date Data Source [id number] 05/25/2020 12:09:00 PM EDT [place] ([facility]) Name Value Range Interpretation Code Description Data Greta rce(s) Supporting Document(s) #BASO 0.07 10\\^3/uL #BASO [place] ([facility]) Note: Responsible Observer: (TAD) #EOS 0.34 10\\^3/uL #EOS [place] ([facility]) Note: Responsible Observer: (TAD) #IG 0.04 10\\^3/uL #IG [place] ([facility]) Note: Responsible Observer: (TAD) #LYMPH 1.90 10\\^3/uL #LYMPH [place] ([facility]) Note: Responsible Observer: (TAD) #MONO 1.18 10\\^3/uL Above high normal #MONO [place] ([facility]) Note: Responsible Observer: (TAD) #NEUT 8.58 10\\^3/uL Above high normal #NEUT [place] ([facility]) Note: Responsible Observer: (TAD) #NRBC 0.00 10\\^3/uL #NRBC [place] ([facility]) Note: Responsible Observer: (TAD) %EOS 3 % %EOS [place] ([facility]) Note: Responsible Observer: (TAD) %IG 0.3 % Above high normal %IG [place] ([facility]) Note: Responsible Observer: (TAD) %LYMPH 21 % Below low normal %LYMPH [place] ([facility]) Note: Responsible Observer: (TAD) %NRBC 0.0 % %NRBC [place] ([facility]) Note: Responsible Observer: (TAD) %MONO 10 % Above high normal %MONO [place] ([facility]) Note: Responsible Observer: (TAD) CBC W/AUTOMATED DIFF See Note CBC W/AUTOMATED DIFF [place] ([facility]) Note: COMPLETE BLOOD COUNTResponsibl e Observer: (TAD) BASO 0.6 % BASO [place] ([facility]) Note: Responsible Observer: (TAD) EOS 2.8 % EOS [place] ([facility]) Note: Responsible Observer: (TAD) Hematocrit [Pure volume fraction] of Blood by Automated count 39 .6 % Below low normal HEMATOCRIT [place] ([facility]) Note: Responsible Observer: (TAD) LYMPH 15.7 % Below low normal LYMPH [place] ([facility]) Note: Responsible Observer: (TAD) Hemoglobin [Mass/volume] in Mixed venous blood by Oximetry 13.2 g/dL Below low normal HEMOGLOBIN [place] ([facility]) Note: Responsible Observer: (TAD) MANUAL DIFF SEE BELOW MANUAL DIFF [place] ([facility]) Note: Responsible Observer: (TAD) MCH 29.7 pg MCH [place] ([facility]) Note: Responsible Observer: (TAD) MCV 89.0 fL MCV [place] ([facility]) Note: Responsible Observer: (TAD) MCHC 33.3 g/dL MCHC [place] ([facility]) Note: Responsible Observer: (TAD) MONO 9.7 % Above high normal MONO [place] ([facility]) Note: Responsible Observer: (TAD) MPV 9.2 fL MPV [place] ([facility]) Note: Responsible Observer: (TAD) NEUT 70.9 % NEUT [place] ([facility]) Note: Responsible Observer: (TAD) Platelets [#/area] in Blood by Microscopy high power field 346 10\\^ 3/uL PLATELETS [place] ([facility]) Note: Responsible Observer: (TAD) PLT EST NORMAL PLT EST [place] ([facility]) Note: COMMENT: Responsible Observer: (TAD) RBC 4.45 10\\^6/uL Below low normal RBC [place] ([facility]) Note: Responsible Observer: (TAD) RDW 13.5 % RDW [place] ([facility]) Note: Responsible Observer: (TAD) SEGS 66 % SEGS [place] ([facility]) Note: Responsible Observer: (TAD) RBC MORPH SEE BELOW RBC MORPH [place] ([facility]) Note: { SICKLE CELL (NORMAL: NONE SEEN )Responsible Observer: (TAD) WBC 12.1 10\\^3/uL Above high normal WBC [place] ([facility]) Note: Responsible Observer: (TAD) ID Date Data Source [id number] 05/25/2020 12:09:00 PM EDT [place] ([facility]) Name Value Range Interpretation Code Description Data Greta rce(s) Supporting Document(s) Reported Physicians See Note Reported Physici ans [place] ([facility]) Note: Reported Physicians:Ordering: ANAHI GLASERending: Elva BENNETTulting: Evangelist MCELROY To: Isrrael Blackwell To: VENERUS, AMA ID Date Data Source [id number] 05/25/2020 12:09:00 PM EDT [place] ([facility]) Name Value Range Interpretation Code Description Data Greta rce(s) Supporting Document(s) A/G RATIO 1.4 A/G RATIO [place] ([facility]) Note: Responsible Observer: (LMW) AFR AMER GFR >60 mL/min AFR AMER GFR [place] ([facility]) Note: Male GFR Interprentation 20- 49 yrs >60 mL/min Normal 50-59 yrs >56 mL/min Normal 60-69 yrs >49 mL/min Normal 70- 79yrs >42 mL/min Normal 80 and above >35 mL/min Normal Female GFR Interpretation 20-39 yrs >60 mL/min Normal 40-49 yrs >58 mL/min Normal 50-59 yrs >51 mL/min Normal 60-69 yrs >45 mL/min Normal 70-79 yrs >39 mL/min Normal 80 and above >32 mL/min NormalResponsible Observer: (LMW) Egg donor age 65 yrs AGE [place] ([facility]) Note: Responsible Observer: (LMW) Albumin [Mass/volume] in Blood by Bromocresol purple ( BCP) dye binding method 4.4 G/DL ALBUMIN [place] ([facility]) Note: Responsible Observer: (LMW) ALKALINE PHOS 101 U/L ALKALINE PHOS [place] ([facility]) Note: Responsible Observer: (LMW) Anion gap in Body fluid 11.0 mmol/L ANION GAP [place] ([facility]) Note: Responsible Observer: (LMW) BUN 16 MG/DL BUN [place] ([facility]) Note: Responsible Observer: (LMW) BUN/CREAT 16 BUN/CREAT [place] ([facility]) Note: Responsible Observer: (LMW) Calcium [Moles/volume] in Urine collected for unspecified durati on 9.9 MG/DL CALCIUM [place] ([facility]) Note: Responsible Observer: (LMW) Chloride [Moles/volume] in Serum, Plasma or Blood 102 mEq/L CHLORIDE [place] ([facility]) Note: Responsible Observer: (LMW) COMPREHENSIVE METABOLIC PANEL See Note COMPRE HENSIVE METABOLIC PANEL [place] ([facility]) Note: COMPREHENSIVE METABOLIC PANELR esponsible Observer: (LMW) CO2 28 MEQ/L CO2 [place] ([facility]) Note: Responsible Observer: (LMW) Creatinine [Moles/volume] in Vitreous fluid 1.0 MG/DL CREATININE [place] ([facility]) Note: Responsible Observer: (LMW) Glucose [Mass/volume] in Urine collected for unspecified duration 1 04 MG/DL GLUCOSE [place] ([facility]) Note: Responsible Observer: (LMW) Globulin [Mass/time] in 24 hour Urine 3.1 GM/DL GLOBULIN [place] ([facility]) Note: Responsible Observer: (LMW) NON-AA GFR >60 mL/min NON-AA GFR [place] ([facility]) Note: Responsible Observer: (LMW) Potassium [Mass/volume] in Blood 4.2 mEq/L POT ASSIUM [place] ([facility]) Note: Responsible Observer: (LMW) SGPT/ALT 20 U/L SGPT/ALT [place] ([facility]) Note: Responsible Observer: (LMW) SGOT/AST 20 U/L SGOT/AST [place] ([facility]) Note: Responsible Observer: (LMW) Sodium [Moles/volume] in Serum, Plasma or Blood 141 mEq/L SODIUM [place] ([facility]) Note: Responsible Observer: (LMW) TOTAL PROTEIN 7.5 G/DL TOTAL PROTEIN [place] ([facility]) Note: Responsible Observer: (LMW) TOTAL BILI <0.7 MG/DL TOTAL BILI [place] ([facility]) Note: Responsible Observer: (LMW) ID Date Data Source [id number] 06/03/2020 09:22:00 AM EDT [facility] Name Value Range Interpretation Code Description Data Greta rce(s) Supporting Document(s) CULTURE BLOOD [facility] spital _CULTURE BLOOD_{ PRELIM TEST PERFORMED AT [address] [address] CLIA# [id number] SEE SCANNED REPORT ID Date Data Source [id number] 05/25/2020 12:59:00 PM EDT [facility] Name Value Range Interpretation Code Description Data Greta rce(s) Supporting Document(s) CBC W/AUTOMATED DIFF [facility] COMPLETE BLOOD COUNT Leukocytes [#/volume] in Blood by Automated count 12.1 10^3/uL 4.2 - 11.0 H [facility] Erythrocytes [#/volume] in Blood by Automated count 4.45 10^6/uL 4. 50 - 6.30 L [facility] Hemoglobin [Mass/volume] in Blood 13.2 g/dL 14.0 - 16.0 L [facility] Hematocrit [Volume Fraction] of Blood by Automated count 39.6 % 4 1.0 - 51.0 L [facility] Erythrocyte mean corpuscular volume [Entitic volume] by Auto mated count 89.0 fL 80.0 - 94.0 [facility] Erythrocyte mean corpuscular hemoglobin [Entitic mass] by Automated count 29.7 pg 27.0 - 34.0 [facility] Erythrocyte mean corpuscular hemoglobin concentration [Mass/volume] by Automated count 33.3 g/dL 31.0 - 36.0 [facility] Erythrocyte distribution width [Ratio] by Automated count 13.5 % 11.5 - 14.8 [facility] Platelets [#/volume] in Blood by Automated count 346 10^3/uL 150 - 45 0 [facility] Platelet mean volume [Entitic volume] in Blood by Automated count 9.2 fL 7.4 - 10.4 [facility] Neutrophils/100 leukocytes in Blood by Automated count 70.9 % 37. 0 - 80.0 [facility] Lymphocytes/100 leukocytes in Blood by Manual count 15.7 % 25.0 - 40.0 L [facility] Monocytes/100 leukocytes in Blood by Automated count 9.7 % 3.0 - 8.0 H [facility] Eosinophils/100 leukocytes in Blood by Automated count 2.8 % 0.0 - 7.0 [facility] Basophils/100 leukocytes in Blood by Automated count 0.6 % 0.0 - 2.0 [facility] %IG 0.3 % 0.0 - 0.0 H [facility] %NRBC 0.0 % 0.0 - 0.0 [facility] Neutrophils [#/volume] in Blood by Automated count 8.58 10^3/uL 2.00 - 6.90 H [facility] Lymphocytes [#/volume] in Blood by Automated count 1.90 10^3/uL 0.60 - 3.40 [facility] Monocytes [#/volume] in Blood by Automated count 1.18 10^3/uL 0.00 - 0.90 H [facility] Eosinophils [#/volume] in Blood by Automated count 0.34 10^3/uL 0.00 - 0.70 [facility] Basophils [#/volume] in Blood by Automated count 0.07 10^3/uL 0.00 - 0.20 [facility] #IG 0.04 10^3/uL 0.00 - 0.10 [facility] #NRBC 0.00 10^3/uL 0.00 - 0.00 [facility] MANUAL DIFF SEE BELOW [facility] ital Segmented neutrophils/100 leukocytes in Blood by Manual count 66 % 37 - 80 [facility] %LYMPH 21 % 25 - 40 L [facility] %MONO 10 % 3 - 8 H [facility] %EOS 3 % 0 - 7 [facility] RBC [facility]ORPH [facility] { SICKLE CELL (NORMAL: NONE SEEN ) Platelet adequacy [Presence] in Blood by Light microscopy NORMAL NORMAL: NORMAL [facility] COMMENT: ID Date Data Source [id number] 05/25/2020 12:45:00 PM EDT [facility] Name Value Range Interpretation Code Description Data Greta rce(s) Supporting Document(s) Urate [Mass/volume] in Serum or Plasma 7.8 MG/DL 2.5 - 8.5 [facility] ID Date Data Source [id number] 05/25/2020 12:41:00 PM EDT [facility] Name Value Range Interpretation Code Description Data Greta rce(s) Supporting Document(s) COMPREHENSIVE METABOLIC PANEL [facility] COMPREHENSIVE METABOLIC PANEL Sodium [Moles/volume] in Serum or Plasma 141 mEq/L 134 - 153 [facility] Potassium [Moles/volume] in Serum or Plasma 4.2 mEq/L 3.6 - 5.0 [facility] Chloride [Moles/volume] in Serum or Plasma 102 mEq/L 98 - 107 [facility] Carbon dioxide, total [Moles/volume] in Serum or Plasma 28 MEQ/L 22 - 30 [facility] Glucose [Mass/volume] in Serum or Plasma 104 MG/DL 65 - 110 [facility] BUN 16 MG/DL 7 - 21 [facility] al Creatinine [Mass/volume] in Serum or Plasma 1.0 MG/DL 0.7 - 1.5 [facility] BUN/CREAT 16 8 - 27 [facility] al Protein [Mass/volume] in Serum or Plasma 7.5 G/DL 6.3 - 8.2 [facility] Albumin [Mass/volume] in Serum or Plasma 4.4 G/DL 3.9 - 5.0 [facility] Globulin [Mass/volume] in Serum by calculation 3.1 GM/DL 2.4 - 3.2 [facility] A/G RATIO 1.4 0.8 - 2.0 [facility] Calcium [Mass/volume] in Serum or Plasma 9.9 MG/DL 8.4 - 10.2 [facility] Bilirubin.total [Mass/volume] in Serum or Plasma <0.7 MG/DL 0.2 - 1.3 [facility] Alkaline phosphatase [Enzymatic activity/volume] in Serum or Plasma 101 U/L 38 - 126 [facility] Aspartate aminotransferase [Enzymatic activity/volume] in Serum or Plasma 20 U/L 5 - 40 [facility] Alanine aminotransferase [Enzymatic activity/volume] in Seru m or Plasma 20 U/L 7 - 56 [facility] Anion gap 3 in Serum or Plasma 11.0 mmol/L 8.0 - 16.0 [facility] AGE 65 yrs [facility] NON-AA GFR >60 mL/min [facility] AFR AMER GFR >60 mL/min [facility] Male GFR In terprentation 20-49 yrs >60 mL/min Normal 50-59 yrs >56 mL/min Normal 60-69 yrs >49 mL/min Normal 70-79yrs >42 mL/min Normal 80 and above >35 mL/min Normal Female GFR Interpretation 20-39 yrs >60 mL/min Normal 40-49 yrs >58 mL/min Normal 50-59 yrs >51 mL/min Normal 60-69 yrs >45 mL/min Normal 70-79 yrs >39 mL/min Normal 80 and above >32 mL/min Normal ID Date Data Source [id number] 05/25/2020 12:32:00 PM EDT [facility] Name Value Range Interpretation Code Description Data [facility] rce(s) Supporting Document(s) Prothrombin time (PT) 13.0 SECONDS 11.0 - 15.5 [facility] INR in Platelet poor plasma by Coagulation assay 0.97 0.93 - 1. 23 [facility] aPTT in Blood by Coagulation assay 32.0 SECONDS 24.8 - 36.7 [facility] \\BLDo\\INR INTERPRETATION\\BLDx\\ Therapeutic range for Coumadin and related oral anticoagulants. - International Normalized Ratio (INR): 2.0 - 3.0 for Venous Thrombosis, Pulmonary Embolus, Tissue heart valves, Acute [place] Atrial Fibrillation, Valvular heart disease and recurrent Systemic Embolism. - International Normalized Ratio (INR): 2.5 - 3.5 for Mechanical Prosthetic valve. ID Date Data Source [id number] 05/25/2020 12:21:00 PM EDT [facility] Name Value Range Interpretation Code Description Data Greta rce(s) Supporting Document(s) Lactate [Moles/volume] in Serum or Plasma 1.7 MMOL/L 0.2 - 2.2 [facility] Procedure Social History Code Duration Value Status Description Data Source(s ) Smoking 01/31/2021 12:00:00 AM EDT Former Smoker completed Former Smoker eCW1 ([facility]) Alcohol intake 10/10/2020 12:00:00 AM EST Current drinker of al cohol (finding) completed Current drinker of alcohol (finding) [facility] Tobacco use and exposure 10/10/2020 12:00:00 AM EST Never used co mpleted Never used [facility] Cigarette pack-years 10/10/2020 12:00:00 AM EST UNK completed [facility] Cigarettes smoked current (pack per day) - Reported 10/10/19 12:00:00 AM EST UNK completed [facility] Smoking 10/10/2020 12:00:00 AM EST Former smoker completed Former smoker [facility] Smoking 09/24/2020 12:00:00 AM EST Former Smoker completed Former Smoker eCW1 ([facility]) Smoking 08/21/2020 12:00:00 AM EST Former Smoker completed Former Smoker eCW1 ([facility]) Alcohol intake 08/01/2020 12:00:00 AM EST Current drinker of al cohol (finding) completed Current drinker of alcohol (finding) [facility] Vital Signs ID Date Data Source UNK Name Value Range Interpretation Code Description Data Source(s) Body weight 114.307 kg 114.307 kg [facility]) Body surface area Derived from formula 2.35 m2 2.35 m2 [facility] ([facility]) Systolic blood pressure 140 mm[Hg] 140 mm[Hg] M [facility] ([facility]) Diastolic blood pressure 82 mm[Hg] 82 mm[Hg] [facility]) Body height 72 [in_i] 72 [in_i] [facility] ([facility]) 6'0" Body weight 252.00 [lb_av] 252.00 [lb_av] MED[facility] T ([facility], ) Body mass index (BMI) [Ratio] 34.2 kg/m2 34.2 k g/m2 [facility] ([facility], ) [place] body weight 178 [lb_av] 178 [lb_av] [facility] T ([facility], ) Systolic blood pressure 140 mm[Hg] 140 mm[Hg] [facility] Diastolic blood pressure 90 mm[Hg] 90 mm[Hg] [place] ([facility]) Heart rate 76 /min 76 /min [place] ([facility]) Body temperature 98.6 [degF] 98.6 [degF] [facility] ([facility]) Body height 70 [in_i] 70 [in_i] [place] ([facility]) Body weight 257 [lb_av] 257 [lb_av] [place] ([facility]) Body mass index (BMI) [Ratio] 36.9 kg/m2 36.9 k g/m2 [place] ([facility]) Body surface area Derived from formula 2.32 m2 2.32 m2 [place] ([facility]) Respiratory rate 20 /min 20 /min [place] ([facility]) Oxygen saturation in Arterial blood by Pulse oximetry 97 % 97 % [place] ([facility]) Systolic blood pressure 128 mm[Hg] 128 mm[Hg] [facility] Body weight 256 [lb_av] 256 [lb_av] [place] ([facility]) Body mass index (BMI) [Ratio] 36.7 kg/m2 36.7 k g/m2 [place] ([facility]) Body surface area Derived from formula 2.32 m2 2.32 m2 [place] ([facility]) Oxygen saturation in Arterial blood by Pulse oximetry 96 % 96 % [place] ([facility]) Inhaled oxygen flow rate 0 L/min 0 L/min [place] ([facility]) Inhaled oxygen concentration 21 % 21 % [place] ([facility]) Diastolic blood pressure 68 mm[Hg] 68 mm[Hg] [place] ([facility]) Heart rate 80 /min 80 /min [facility] [facility] Respiratory rate 24 /min 24 /min [place] ([facility]) Body temperature 97.8 [degF] 97.8 [degF] [place] ([facility]) Body height 70 [in_i] 70 [in_i] [place] ([facility]) Body temperature 97.6 [degF] 97.6 [degF] [place] ([facility]) Systolic blood pressure 130 mm[Hg] 130 mm[Hg] G [place] ([facility]) Heart rate 84 /min 84 /min [place] ([facility]) Respiratory rate 24 /min 24 /min [place] ([facility]) Body mass index (BMI) [Ratio] 36.7 kg/m2 36.7 k g/m2 [place] ([facility]) Body surface area Derived from formula 2.32 m2 2.32 m2 [place] ([facility]) Inhaled oxygen flow rate 0 L/min 0 L/min [place] ([facility]) Inhaled oxygen concentration 21 % 21 % [place] ([facility]) Body height 70 [in_i] 70 [in_i] [place] ([facility]) Body weight 256 [lb_av] 256 [lb_av] [place] ([facility]) Diastolic blood pressure 78 mm[Hg] 78 mm[Hg] [place] ([facility]) Oxygen saturation in Arterial blood by Pulse oximetry 98 % 98 % [place] ([facility]) Systolic blood pressure 138 mm[Hg] 138 mm[Hg] e CW1 ([facility]) Body temperature 98.2 [degF] 98.2 [degF] eCW1 ( [facility]) Body weight 258.6 [lb_av] 258.6 [lb_av] eCW1 ([facility]) Diastolic blood pressure 70 mm[Hg] 70 mm[Hg] eCW1 ([facility]) Body mass index (BMI) [Ratio] 35.07 kg/m2 35.07 kg/m2 [facility] ([facility]) Body weight 117.3 kg 117.3 kg eCW1 ([facility]) Heart rate 102 /min 102 /min eCW1 ([facility]) Body height 72 [in_i] 72 [in_i] eCW1 ([facility]) Respiratory rate 18 /min 18 /min eCW1 ([facility]) Systolic blood pressure 136 mm[Hg] 136 mm[Hg] G [place] ([facility]) Diastolic blood pressure 78 mm[Hg] 78 mm[Hg] [place] ([facility]) Heart rate 77 /min 77 /min [place] ([facility]) Respiratory rate 24 /min 24 /min [place] ([facility]) Body temperature 97.6 [degF] 97.6 [degF] [facility] ([facility]) Body height 70 [in_i] 70 [in_i] [place] ([facility]) Body weight 251 [lb_av] 251 [lb_av] [place] ([facility]) Body mass index (BMI) [Ratio] 36.0 kg/m2 36.0 k g/m2 [place] ([facility]) Body surface area Derived from formula 2.30 m2 2.30 m2 [place] ([facility]) Oxygen saturation in Arterial blood by Pulse oximetry 99 % 99 % [place] ([facility]) Inhaled oxygen flow rate 0 L/min 0 L/min [place] ([facility]) Inhaled oxygen concentration 21 % 21 % [place] ([facility]) Body weight 253.6 [lb_av] 253.6 [lb_av] eCW1 ([facility]) Body weight 115.0 kg 115.0 kg eCW1 ([facility]) Body height 72 [in_i] 72 [in_i] eCW1 ([facility]) Body mass index (BMI) [Ratio] 34.39 kg/m2 34.39 kg/m2 eCW1 ([facility]) Heart rate 77 /min 77 /min eCW1 ([facility]) Respiratory rate 18 /min 18 /min eCW1 ([facility]) Body temperature 98.6 [degF] 98.6 [degF] eCW1 ( [facility]) Systolic blood pressure 132 mm[Hg] 132 mm[Hg] e CW1 ([facility]) Diastolic blood pressure 82 mm[Hg] 82 mm[Hg] eCW1 ([facility]) Heart rate 75 /min 75 /min [place] [facility] Systolic blood pressure 142 mm[Hg] 142 mm[Hg] [facility] ([facility]) Diastolic blood pressure 90 mm[Hg] 90 mm[Hg] [place] ([facility]) Body weight 256 [lb_av] 256 [lb_av] [place] ( [facility]) Respiratory rate 24 /min 24 /min [place] ([facility]) Body mass index (BMI) [Ratio] 36.7 kg/m2 36.7 k g/m2 [place] ([facility]) Body surface area Derived from formula 2.32 m2 2.32 m2 [place] ([facility]) Oxygen saturation in Arterial blood by Pulse oximetry 98 % 98 % [place] ([facility]) Inhaled oxygen flow rate 0 L/min 0 L/min [place] ([facility]) Inhaled oxygen concentration 21 % 21 % [place] ([facility]) Body temperature 97.8 [degF] 97.8 [degF] [facility] ([facility]) Body height 70 [in_i] 70 [in_i] [place] ([facility]) Oxygen saturation in Arterial blood by Pulse oximetry 97 % 97 % [place] ([facility]) Systolic blood pressure 152 mm[Hg] 152 mm[Hg] G [place] ([facility]) Body weight 255 [lb_av] 255 [lb_av] [place] ( [facility]) Body mass index (BMI) [Ratio] 36.6 kg/m2 36.6 k g/m2 [place] ([facility]) Body surface area Derived from formula 2.31 m2 2.31 m2 [place] ([facility]) Diastolic blood pressure 92 mm[Hg] 92 mm[Hg] [place] ([facility]) Heart rate 68 /min 68 /min [place] ([facility]) Respiratory rate 24 /min 24 /min [place] ([facility]) Body temperature 97.6 [degF] 97.6 [degF] [facility] Body height 70 [in_i] 70 [in_i] [place] [facility] Body temperature 97.1 [degF] 97.1 [degF] [facility] ([facility]) Body height 72 [in_i] 72 [in_i] [facility] ([facility]) 6'0" Body weight 260.00 [lb_av] 260.00 [lb_av] MEDEN T ([facility]) Body mass index (BMI) [Ratio] 35.3 kg/m2 35.3 k g/m2 [facility] ([facility]) ID Date Data Source [id number] 10/10/2020 09:19:49 PM [facility] Name Value Range Interpretation Code Description Data Source(s) PREFERRED NAME [facility] PREFERRED NAME [facility] ID Date Data Source [id number] 08/01/2020 10:15:52 AM [facility] Name Value Range Interpretation Code Description Data Source(s) PREFERRED NAME [facility] PREFERRED NAME [facility] Patient Treatment Plan of Care Planned Activity Planned Date Details Description Data Source (s) Allopurinol 300 MG Oral Tablet 01/08/2021 12:00:00 AM EDT [place] ([facility]) Sertraline 100 MG Oral Tablet 01/08/2021 12:00:00 AM EDT [place] ([facility]) Hydrochlorothiazide 12.5 MG Oral Tablet 01/02/2021 12:00:00 AM EDT [place] ([facility]) Simvastatin 10 MG Oral Tablet 12/04/2020 12:00:00 AM EDT [place] ([facility]) Losartan Potassium 50 MG Oral Tablet 11/19/2020 12:00:00 AM EDT [place] ([facility]) Sertraline 100 MG Oral [facility]t [facility] Sertraline 50 MG Oral Tablet 10/10/2020 12:00:00 AM [facility] ([facility]) Prednisone 5 MG Oral Tablet 09/24/2020 12:00:00 AM [facility] Prednisone 5 MG Oral Tablet 09/24/2020 12:00:00 AM [place] [id number] ([facility]) Hydrochlorothiazide 12.5 MG Oral Tablet 09/17/2020 12:00:00 AM EST [place] ([facility]) Losartan Potassium 50 MG Oral Tablet 08/31/2020 12:00:00 AM [facility] ([facility]) Allopurinol 300 MG Oral Tablet 08/31/2020 12:00:00 AM EST [place] ([facility]) Hydrochlorothiazide 12.5 MG Oral Tablet 08/31/2020 12:00:00 AM [facility] ([facility]) Allopurinol 300 MG Oral Tablet 08/21/2020 12:00:00 AM EST [facility] ([facility]) Allopurinol 300 MG Oral Tablet 08/21/2020 12:00:00 AM EST [facility] ([facility]) Allopurinol 300 MG Oral Tablet 07/31/2020 12:00:00 AM EST [place] ([facility]) Colchicine 0.6 MG Oral Tablet 07/31/2020 12:00:00 AM EST [place] ([facility]) Losartan Potassium 50 MG Oral Tablet 07/31/2020 12:00:00 AM EST [place] ([facility]) Hydrochlorothiazide 12.5 MG Oral Tablet 07/31/2020 12:00:00 AM EST [place] ([facility]) Simvastatin 10 MG Oral Tablet 07/31/2020 12:00:00 AM [facility] ([facility]) Losartan Potassium 50 MG Oral Tablet 07/31/2020 12:00:00 AM [facility] Lisinopril 20 MG Oral Tablet 07/03/2020 12:00:00 AM [facility] ([facility]) Allopurinol 300 MG Oral Tablet 07/03/2020 12:00:00 AM [facility] ([facility]) Colchicine 0.6 MG Oral Tablet 07/03/2020 12:00:00 AM [facility] ([facility]) Allopurinol 300 MG Oral Tablet 07/03/2020 12:00:00 AM [facility] Colchicine 0.6 MG Oral Tablet 07/03/2020 12:00:00 AM [facility] Hydrochlorothiazide 12.5 MG Oral Tablet 05/08/2020 12:00:00 AM [facility] ([facility]) Lisinopril 20 MG Oral Tablet 05/08/2020 12:00:00 AM [facility] ([facility]) Simvastatin 10 MG Oral Tablet 05/08/2020 12:00:00 AM [facility] ([facility])
[2021-07-12] MEDS ORDERED: LIDOCAINE 2% 100MG/5ML SDV (FOR ANES.) As Ordered ONE (08:16)
[2021-07-12] MEDS ORDERED: propofoL 200 MG/20 ML VIAL As Ordered ONE ×2 (08:17→08:39)
--- NOTE | 2021-07-12 08:42 | ROOR ---
Patient Name: Keo Arce Procedure Date: 07/12/2021 8:11 AM Date of : 1955 Age: 66 Room: [facility] Gender: Male Note Status: Finalized Procedure: Colonoscopy Indications: High risk colon cancer surveillance: Personal history of colonic polyps Providers: Aj Xie MD Referring MD: EPHRAIM HANDY MD Requesting Provider: Medicines: Monitored Anesthesia Care Complications: No immediate complications. Procedure: Pre-Anesthesia Assessment: - The heart rate, respiratory rate, oxygen saturations, blood pressure, adequacy of pulmonary ventilation, and response to care were monitored throughout the procedure. The Colonoscope was introduced through the anus and advanced to the terminal ileum, with identification of the appendiceal orifice and IC valve. The colonoscopy was performed without difficulty. The patient tolerated the procedure well. The quality of the bowel preparation was good. Findings: The perianal and digital rectal examinations were normal. Two sessile polyps were found in the sigmoid colon and cecum. The polyps were diminutive in size. These polyps were removed with a cold snare. Resection and retrieval were complete. Mild sigmoid diverticulosis and moderate internal hemorrhoids. The exam was otherwise without abnormality on direct and retroflexion views. Impression: - Two diminutive polyps in the sigmoid colon and in the cecum, removed with a cold snare. Resected and retrieved. - Mild sigmoid diverticulosis and moderate internal hemorrhoids. - The examination was otherwise normal on direct and retroflexion views. Recommendation: - Repeat colonoscopy in 5 years for surveillance. Procedure Code(s): --- Professional --- 59388, Colonoscopy, flexible; with removal of tumor(s), polyp(s), or other lesion(s) by snare technique Diagnosis Code(s): --- Professional --- K63.5, Polyp of colon Z86.010, Personal history of colonic polyps CPT copyright 2019 [employer]. All rights reserved. The codes documented in this report are preliminary and upon him coder review may be revised to meet current compliance requirements. Aj Xei MD Aj Xie MD 07/12/2021 8:41:51 AM Electronically signed by Aj Xie MD Number of Addenda: 0 Note Initiated On: 07/12/2021 8:11 AM Estimated Blood Loss: Estimated blood loss: none.
[2021-07-12 09:05] VITALS: BP 128/71
== END 2021-07-12 09:12 | disposition home or self-care (01) ==
LOC: M OPP 06:49
PROVIDERS: ATTEND Internal Medicine Gastroenterology
DX: D12.5 Benign neoplasm of sigmoid colon (principal); Z86.010 Personal history of colon polyps; I10 Essential (primary) hypertension; E78.5 Hyperlipidemia, unspecified; F32.A Depression, unspecified; Z79.899 Other long term (current) drug therapy

== ENCOUNTER → 2021-10-10 | Outpatient (CLI) | payer MEDICARE, OTHER ==
[~2021-10-10] MED LIST changes: +LOSA50TA28 PO; -LOSA50TA88 PO; -NS 1,000 ML IV ONE; +OXYB10TA23 PO
== END ==
LOC: M ONCR 09:47
PROVIDERS: ATTEND General Practice
DX: C61 Malignant neoplasm of prostate (principal); R35.1 Nocturia; R39.15 Urgency of urination; R33.9 Retention of urine, unspecified; R53.83 Other fatigue; Z79.899 Other long term (current) drug therapy; Z87.891 Personal history of nicotine dependence; Z92.3 Personal history of irradiation

== ENCOUNTER → 2022-04-09 | Outpatient (CLI) | payer MEDICARE ==
[~2022-04-09] MED LIST changes: +OXYB5TAB10 PO
== END ==
LOC: M ONCR 10:31
PROVIDERS: ATTEND General Practice
DX: Z08 Encounter for follow-up examination after completed treatment for malignant neoplasm (principal); N39.44 Nocturnal enuresis; Z85.46 Personal history of malignant neoplasm of prostate; Z79.899 Other long term (current) drug therapy; Z87.891 Personal history of nicotine dependence; Z92.23 Personal history of estrogen therapy

== ENCOUNTER → 2022-10-17 | Outpatient (CLI) | payer MEDICARE | LOC: M ONCR 10:14 | PROVIDERS: ATTEND General Practice | DX: C61 Malignant neoplasm of prostate (principal); R97.21 Rising PSA following treatment for malignant neoplasm of prostate; Z79.899 Other long term (current) drug therapy; Z87.891 Personal history of nicotine dependence; Z92.3 Personal history of irradiation ==

== ENCOUNTER → 2023-04-16 | Outpatient (CLI) | payer MEDICARE | LOC: M ONCR 10:15 | PROVIDERS: ATTEND General Practice | DX: C61 Malignant neoplasm of prostate (principal); R97.21 Rising PSA following treatment for malignant neoplasm of prostate; Z71.2 Person consulting for explanation of examination or test findings; Z79.899 Other long term (current) drug therapy; Z87.891 Personal history of nicotine dependence; Z90.79 Acquired absence of other genital organ(s); Z92.3 Personal history of irradiation; Z92.29 Personal history of other drug therapy ==

== ENCOUNTER → 2023-07-22 | Outpatient (CLI) | payer MEDICARE ==
[~2023-07-22] MED LIST changes: +DARI7.5T11 PO; -OXYB5TAB10 PO; +OXYB5TAB11 PO
== END ==
LOC: M ONCR 09:12
PROVIDERS: ATTEND General Practice
DX: C61 Malignant neoplasm of prostate (principal); R97.21 Rising PSA following treatment for malignant neoplasm of prostate; Z71.2 Person consulting for explanation of examination or test findings; Z79.899 Other long term (current) drug therapy; Z87.891 Personal history of nicotine dependence; Z90.79 Acquired absence of other genital organ(s); Z92.3 Personal history of irradiation; Z92.29 Personal history of other drug therapy

== ENCOUNTER → 2023-09-11 | Outpatient (CLI) | payer MEDICARE | LOC: M ONCR 08:43 | PROVIDERS: ATTEND General Practice | DX: C61 Malignant neoplasm of prostate (principal); C79.51 Secondary malignant neoplasm of bone; R91.1 Solitary pulmonary nodule; Z71.2 Person consulting for explanation of examination or test findings; Z79.899 Other long term (current) drug therapy; Z87.891 Personal history of nicotine dependence; Z90.79 Acquired absence of other genital organ(s); Z92.29 Personal history of other drug therapy; Z92.3 Personal history of irradiation ==

== ENCOUNTER 2023-09-17 10:21 | Outpatient (RCR) | payer MEDICARE | END 2023-09-23 | LOC: M ONCR 10:21 | PROVIDERS: ATTEND General Practice | DX: Z51.0 Encounter for antineoplastic radiation therapy (principal); C79.51 Secondary malignant neoplasm of bone; R91.8 Other nonspecific abnormal finding of lung field; C61 Malignant neoplasm of prostate ==

== ENCOUNTER → 2023-10-01 | Outpatient (CLI) | payer MEDICARE ==
[2023-10-01] MEDS: LEUPROLIDE 45MG SYRINGE KIT (LUPRON DEPOT) (FOR ONCOLOGY) IM ONE (09:55)
== END ==
LOC: M ONCR 09:43
PROVIDERS: ATTEND General Practice
DX: C61 Malignant neoplasm of prostate (principal)
CPT/HCPCS: 96402; G0463; J9217

== ENCOUNTER 2023-10-02 09:39 | Outpatient (RCR) | payer MEDICARE ==
[~2023-10-02 09:39] MED LIST changes: -OXYB5TAB11 PO; +OXYB5TAB14 PO
[2023-10-15] MEDS ORDERED: OXYB10TA23 PO (11:56)
== END 2023-10-22 ==
LOC: M ONCR 09:39
PROVIDERS: ATTEND General Practice
DX: Z51.0 Encounter for antineoplastic radiation therapy (principal); C79.51 Secondary malignant neoplasm of bone; C78.02 Secondary malignant neoplasm of left lung

== ENCOUNTER → 2024-01-01 | Outpatient (CLI) | payer MEDICARE | LOC: M ONCR 09:27 | PROVIDERS: ATTEND General Practice | DX: C61 Malignant neoplasm of prostate (principal); C79.51 Secondary malignant neoplasm of bone; R91.1 Solitary pulmonary nodule; Z71.2 Person consulting for explanation of examination or test findings; Z79.818 Long term (current) use of other agents affecting estrogen receptors and estrogen levels; Z87.891 Personal history of nicotine dependence; Z79.899 Other long term (current) drug therapy; Z90.79 Acquired absence of other genital organ(s) ==

== ENCOUNTER → 2024-04-05 | Outpatient (CLI) | payer MEDICARE ==
[~2024-04-05] MED LIST changes: +BICA50TA4 PO; -BICA50TA9 PO; +OXYB15TA14 PO
[2024-04-05] MEDS: LEUPROLIDE 45MG SYRINGE KIT (LUPRON DEPOT) IM ONE (10:18)
== END ==
LOC: M ONCR 09:30
PROVIDERS: ATTEND General Practice
DX: C61 Malignant neoplasm of prostate (principal); C79.51 Secondary malignant neoplasm of bone; R35.1 Nocturia; R23.2 Flushing; Z79.818 Long term (current) use of other agents affecting estrogen receptors and estrogen levels; Z79.899 Other long term (current) drug therapy; Z87.891 Personal history of nicotine dependence; Z90.79 Acquired absence of other genital organ(s); Z92.3 Personal history of irradiation
CPT/HCPCS: 96402; G0463; J9217

== ENCOUNTER 2024-09-07 08:21 | Day surgery (SDC) | payer MEDICARE ==
[~2024-09-07] VITALS: Ht 182.9 cm; Wt 115.8 kg
[~2024-09-07 08:21] MED LIST changes: +ALBU8.5H INH; +AMLO1TAB24 PO; +HYDR-3363 PO; +PHENYLEPHRINE 10% OPHTH SOL 5ML OD PRN; +SERT50TA29 PO; +[UNRECOGNIZED DRUG - REMARK]
[2024-09-07] MEDS ORDERED: fentaNYL 100 MCG/2 ML INJECTION As Ordered ONE (08:45)
[2024-09-07] MEDS ORDERED: MIDAZOLAM INJ 2MG/2ML VIAL As Ordered ONE (08:45)
[2024-09-07] MEDS: OFLOXACIN 0.3 % (OCUFLOX) OPTH SOL 5ML OD ONE (09:13)
[2024-09-07] MEDS: CYCLOPENTOLATE 1% OPHTH SOLN 2ML BTL OD SCH (09:13)
[2024-09-07] MEDS: PHENYLEPHRINE 2.5% OPHTH SOL 2ML OD SCH (09:13)
[2024-09-07] MEDS: LIDOCAINE 3.5 % 1ML OPHTH TOPICAL GEL OU ONE (09:13)
[2024-09-07] MEDS: TROPICAMIDE 1% OPHTH SOLN 15ML OD SCH (09:14)
[2024-09-07] MEDS: LIDOCAINE 1% SDV 5ML VIAL As Ordered ONE (10:46)
[2024-09-07] MEDS: CEFUROXIME 1MG/0.1ML INTRACAMERAL INJ As Ordered ONE (10:47)
[2024-09-07] MEDS: BSS IRRIG/VANCO(10MG)/TOBRA(5MG)/EPINEPH(1:1000-0.5CC)500ML BAG-ORONLY As Ordered ONE (10:47)
[2024-09-07 11:02] VITALS: BP 111/61; TEMP 97.4; O2SAT 97
== END 2024-09-07 11:15 | disposition home or self-care (01) ==
LOC: M SDC 08:21
PROVIDERS: ATTEND Ophthalmology
DX: H25.11 Age-related nuclear cataract, right eye (principal); I10 Essential (primary) hypertension; E78.00 Pure hypercholesterolemia, unspecified; Z79.899 Other long term (current) drug therapy; Z85.46 Personal history of malignant neoplasm of prostate; Z92.3 Personal history of irradiation; Z87.891 Personal history of nicotine dependence
CPT/HCPCS: 66984; 92015; J0697; J2250; J3010; V2632

== ENCOUNTER 2024-09-14 08:48 | Day surgery (SDC) | payer MEDICARE ==
[~2024-09-14] VITALS: Ht 185.4 cm; Wt 116.1 kg
[2024-09-14] MEDS: LIDOCAINE 3.5 % 1ML OPHTH TOPICAL GEL OU ONE (06:00)
[2024-09-14] MEDS: OFLOXACIN 0.3 % (OCUFLOX) OPTH SOL 5ML OS ONE (06:00)
[~2024-09-14 08:48] MED LIST changes: +MIDAZOLAM INJ 2MG/2ML VIAL As Ordered ONE; -PHENYLEPHRINE 10% OPHTH SOL 5ML OD PRN; +PHENYLEPHRINE 10% OPHTH SOL 5ML OS PRN
[2024-09-14] MEDS: TROPICAMIDE 1% OPHTH SOLN 15ML OS SCH (09:15)
[2024-09-14] MEDS: CYCLOPENTOLATE 1% OPHTH SOLN 2ML BTL OS SCH (09:15)
[2024-09-14] MEDS: PHENYLEPHRINE 2.5% OPHTH SOL 2ML OS SCH (09:15)
[2024-09-14] MEDS: LIDOCAINE 1% SDV 5ML VIAL As Ordered ONE (10:18)
[2024-09-14] MEDS: BSS IRRIG/VANCO(10MG)/TOBRA(5MG)/EPINEPH(1:1000-0.5CC)500ML BAG-ORONLY As Ordered ONE (10:20)
[2024-09-14] MEDS: CEFUROXIME 1MG/0.1ML INTRACAMERAL INJ As Ordered ONE (10:25)
[2024-09-14 10:37] VITALS: BP 118/64; TEMP 97.5; O2SAT 95
== END 2024-09-14 10:46 | disposition home or self-care (01) ==
LOC: M SDC 08:48
PROVIDERS: ATTEND Ophthalmology
DX: H25.9 Unspecified age-related cataract (principal); Z79.899 Other long term (current) drug therapy; Z87.891 Personal history of nicotine dependence; F17.290 Nicotine dependence, other tobacco product, uncomplicated
CPT/HCPCS: 66984; 92015; J0697; J2250; V2632

== ENCOUNTER → 2024-10-06 | Outpatient (CLI) | payer MEDICARE ==
[~2024-10-06] MED LIST changes: -MIDAZOLAM INJ 2MG/2ML VIAL As Ordered ONE; -PHENYLEPHRINE 10% OPHTH SOL 5ML OS PRN
[2024-10-06] MEDS: LEUPROLIDE 45MG SYRINGE KIT (LUPRON DEPOT) IM ONE (09:56)
== END ==
LOC: M ONCR 09:35
PROVIDERS: ATTEND General Practice
DX: C61 Malignant neoplasm of prostate (principal); Z90.79 Acquired absence of other genital organ(s); Z79.818 Long term (current) use of other agents affecting estrogen receptors and estrogen levels; Z87.891 Personal history of nicotine dependence; Z79.899 Other long term (current) drug therapy
CPT/HCPCS: 96402; G0463; J9217

== ENCOUNTER → 2025-04-05 | Outpatient (CLI) | payer MEDICARE ==
[~2025-04-05] MED LIST changes: +LEUPROLIDE 45 MG SYRINGE KIT IM ONE
== END ==
LOC: M ONCR 08:46
PROVIDERS: ATTEND General Practice
DX: C61 Malignant neoplasm of prostate (principal); C79.51 Secondary malignant neoplasm of bone; Z92.29 Personal history of other drug therapy; Z92.3 Personal history of irradiation